=== PATIENT | female | born 1980 | race Caucasian/White ===

== ENCOUNTER 2023-02-08 06:02 | Day surgery (SDC) | payer BC, SELFPAY ==
[2023-02-08 06:18] VITALS: BMI 31.7
[2023-02-08 06:30] LABS: Hemoglobin* 14.2 gm/dL (12.0-16.0)
[2023-02-08] MEDS: LACTATED RINGERS 1000 ML 1,000 ML 100 ML IV (06:30)
[2023-02-08 06:36] VITALS: BP 107/71; PULSE 67; RESP 16; TEMP 37.3; O2SAT 98
[2023-02-08 06:49] LABS: HCG Qualitative Serum* Negative (Negative)
--- NOTE | 2023-02-08 07:15 | W.ANESCHARGE ---
Anesthesia Charges Start Date/Time Anesthesia Start Date: 02/08/23 Anesthesia Start Time: 07:21 Stop Date/Time Anesthesia Stop Date: 02/08/23 Anesthesia Stop Time: 08:35
[2023-02-08 08:30] VITALS: BP 114/75; PULSE 79; RESP 16; TEMP 36.5; O2SAT 96
--- NOTE | 2023-02-08 08:35 | W.ANESCHARGE ---
Anesthesia Charges Start Date/Time Anesthesia Start Date: 02/08/23 Anesthesia Start Time: 07:21 Stop Date/Time Anesthesia Stop Date: 02/08/23 Anesthesia Stop Time: 08:35
[2023-02-08 08:45] VITALS: BP 103/58; PULSE 77; RESP 16; O2SAT 99
--- NOTE | 2023-02-08 08:51 | P.PCNOB_ITS ---
Procedure Pre-op/Post-op diagnoses: Pre-Op/Post-Op Diagnoses Operation Date: 02/08/23 07:25 <No data on this case meets the specified criteria> Procedure: Procedures Operation Date: 02/08/23 07:25 Actual Procedure Side Surgeon p Hysteroscopy, Endometrial Ablation Not Applicable Jocelynn Birch MD Anesthesia type: MAC Specimen: none Complications: none Disposition: PACU Narrative: Preoperative diagnosis: Fiordaliza is a 42 yo with abnormal uterine bleeding - bhavya rrhagia. Postoperative diagnosis: Same. Procedure: Hysteroscopy and endometrial ablation. Anesthesia: Mac and paracervical block. Surgeon: Joceylnn Birch MD Assist: None Estimated blood loss: <5 cc UOP: 150 cc Fluid deficit: 180 cc Specimen: None UPT: Negative Endometrial biopsy on 01/09/2023: Late proliferative endometrial, negative for hyperplasia, atypia, or malignancy Findings: On exam under anesthesia: The cervix appear multiparous and vagina appear normal. The uterus was anterior position, approximately 6 week size, mobile and without masses or nodularity palpable. Adnexa were without mass or fullness palpable bilaterally. On hysteroscopy: normal uterine cavity contour with out intrauterine fibroids or polyp noted. Bilateral ostia visualized and symmetrical. No other abnormalities noted. The uterus sounded to 8 cm. Cervical length 4 cm. Cavity length: 4 cm. Procedure: Fiordaliza was taken to the operating room where conscious sedation was found to be adequate. She was placed in a dorsal lithotomy position and an exam under anesthesia was performed with the findings stated above. She was then prepped and draped in a normal sterile manner. An a bivalve is sterile speculum was placed in the vaginal canal. A paracervical block was placed using 1% lidocaine with epi: 5 mL were injected at the 4 and 8 o'clock positions on the cervix. A long tenaculum clamp was placed on the anterior lip of the cervix. The cervix was then dilated to Hegar 6. Uterus sounded to 8 cm. The cervix measured 4 cm. There for the cavity length was 4 cm. The Truclear hysteroscope was advanced into the uterus. A diagnostic hysteroscopy performed with normal saline as the insufflation medium. Findings are stated above. The hysteroscope was removed. The cervix was then dilated to Hegar 8. The Lara device was advanced into the uterus. The cavity check for the first Lara device gave a 005 error message and was replaced with a new Lara device. The second Lara cavity check was completed and the ablation took place over 2 min. Patient received 30 mg of Toradol IV. The Lara was removed, the hysteroscope readvanced to document ablation of the entire cavity. The hysteroscope was then removed. The tenaculum was removed from the anterior lip of the cervix. Tenaculum sites achieved hemostasis with just pressure. Speculum was then also removed. The patient tolerated this procedure well. Sponge, lap and instrument counts were correct x2 at the end of the procedure and the patient was taken to the recovery area in stable condition.
[2023-02-08 09:00] VITALS: BP 104/60; PULSE 74; RESP 16; TEMP 36.7; O2SAT 99
== END 2023-02-08 09:30 | disposition home or self-care (01) ==
PROVIDERS: PCP Physician Assistant; Visit Provider Obstetrics & Gynecology
PROC: 0UF98ZZ Fragmentation in Uterus, Via Natural or Artificial Opening Endoscopic (ICD-10-PCS; CPT 58563; principal; 2023-02-08 07:15)
DX: N92.0 Excessive and frequent menstruation with regular cycle (principal)
CPT/HCPCS: 58563; 00952; 36415; 81025; 84703; 85018; J1100; J1885; J2250; J2405; J2704; J3010; J7120

== ENCOUNTER 2023-12-17 07:57 | Emergency (ER) | payer BC, SELFPAY ==
[2023-12-17 08:00] VITALS: BP 111/75; PULSE 91; RESP 16; TEMP 36.6; O2SAT 96; BMI 32.5
--- NOTE | 2023-12-17 08:14 | CRLHL7_ITS ---
For Patients: As a result of the Century Cures Act, medical imaging exams and procedure reports are released immediately into your electronic medical record. You may view this report before your referring provider. If you have questions, please contact your health care provider. Indication: Left-sided lower abdominal pain, suspected urolithiasis versus diverticulitis Technique: Volumetric multidetector CT images of the abdomen and pelvis were without the administration of intravenous contrast. Comparison: None available. Findings: The lung bases are clear. The liver is normal in attenuation without intrahepatic biliary ductal dilatation. There is dependent globular sludge within the gallbladder. There is no evidence of calcified calculus at this time. There is no significant common biliary ductal dilatation or abrupt cut off. The spleen is normal in attenuation and size. The stomach and duodenum are grossly unremarkable. The pancreas is normal in attenuation without significant atrophy. The adrenal glands are unremarkable. There are parapelvic cystic changes of the kidneys without evidence of hydronephrosis or obstructive uropathy. There is [id number] stool within the distal colon with colonic diverticulosis without evidence of diverticulitis. The appendix is unremarkable. There is no significant mesenteric, retroperitoneal, or pelvic sidewall lymph nodes. The aorta is nonaneurysmal. There is no significant atherosclerotic disease appreciated. There is demonstration of a dominant follicle within the left ovary measuring 3.4 centimeters in greatest dimension. There is no free fluid or free air. There is a moderate fat containing umbilical hernia. The lumbar vertebral body heights are grossly maintained with [id number] multilevel degenerative disc disease. Impression: No evidence of radiopaque calculus or obstructive uropathy. Moderate stool seen throughout the colon with distal colonic diverticulosis without evidence of diverticulitis. Dominant follicle within the left ovary measuring 3.4 centimeters. No acute intra-abdominal abnormality is identified. Please note that all CT scans at this facility use dose modulation, iterative reconstruction, and/or weight-based dosing when appropriate to reduce radiation dose to as low as reasonably achievable. Dictated by Raffi Anderson MD @ 12/17/2023 9:11:30 AM (Electronically Signed)
--- NOTE | 2023-12-17 08:21 | ED.ABDPAIN ---
HPI - Abdominal Pain General Date Seen: 12/17/23 Chief Complaint: Abdominal Pain Stated Complaint: side pain Time Seen by Provider: 12/17/23 08:00 Source: patient and family Mode of arrival: ambulatory Limitations: no limitations History of Present Illness HPI narrative: Patient is a very nice 43-year-old female presents here with her for evaluation of left-sided abdominal pain this started in the early hours last night. She was associated initially with a lot of vomiting, she vomited approximately 10 times, no blood within the vomitus, and then developed the left-sided abdominal pain. Did not radiate from her kidney area was down her lower abdominal region. Maybe a little bit across. She took ibuprofen approximately 1-1/2 hour before being seen here. And this is really help the pain it least that she has not doubled over. Never before had this discomfort, but feels it may be her ovary just from the placement of the pain. She has not had any bowel movements but is having some gas, denies any dysuria frequency rashes or vaginal discharge associated with this. Previous abdominal surgery glue is a history of a D and C hysteroscopy, she carries a diagnosis of endometriosis in her chart, but does not feel that this is accurate has never been told this before appears MD elicited complaint: abdominal pain Pertinent past history: none Onset (ago): hour(s) Pain Consistency: constant and colicky Location: LLQ Severity: severe Quality: cramping, stabbing and sharp Radiation: none Migration to: no migration Exacerbating factors: rest Relieving factors: medication Associated symptoms: nausea and vomiting Treatments prior to arrival: NSAIDs Related Data Date of last menstrual period: 12/04/23 Patient : No Home Medications Medication Instructions Recorded Confirmed Lactobacillus rhamnosus GG 20 1 cap PO DAILY 01/09/23 12/17/23 billion cell capsule loratadine 10 mg tablet (Claritin) 10 mg PO QDAY 01/09/23 12/17/23 multivitamin (Daily Multi-Vitamin 1 tab PO QDAY 01/09/23 12/17/23 tablet) Allergies Allergy/AdvReac Type Severity Reaction Status Date / Time spironolactone Allergy Unknown Unknown Verified 09/07/23 08:21 Review of Systems Status of ROS Reports: 10 or more systems reviewed and unremarkable except as noted in History and below [facility] Medical History Rh negative status during ?O26.899 - Other specified related conditions, unspecified trimester (ICD-10) ?Z67.91 - Unspecified blood type, rh negative (ICD-10) Dyspareunia Migraine with aura ?G43.109 - Migraine with aura, not intractable, without status migrainosus (ICD-10) Menorrhagia ?N92.0 - Excessive and frequent menstruation with regular cycle (ICD-10) Obesity ?E66.9 - Obesity, unspecified (ICD-10) Venous insufficiency ?I87.2 - Venous insufficiency (chronic) (peripheral) (ICD-10) PCOS (polycystic ovarian syndrome) ?E28.2 - Polycystic ovarian syndrome (ICD-10) Rh negative status during ?O26.899 - Other specified related conditions, unspecified trimester (ICD-10) ?Z67.91 - Unspecified blood type, rh negative (ICD-10) Surgical History History of endometrial ablation ?Z98.890 - Other specified postprocedural states (ICD-10) History of vein stripping ?Z98.890 - Other specified postprocedural states (ICD-10) History of D&C (01/09/18) ?Z98.890 - Other specified postprocedural states (ICD-10) History of vaginal delivery Family History Sister Depression Migraine Mother Uterine cancer, Onset Age: 30 Migraine Brother Non-Hodgkin lymphoma Maternal Grandfather Brain tumor Father Alcohol dependence Social History Narrative: Andreafski. . Nonsmoker. Occasional alcohol use. Smoking Status: Former smoker How often do you have a drink containing alcohol: 2-4 times a month AUDIT-C Alcohol total score: 2 Non-prescribed substance use: denies use Exam Narrative: Exam Narrative: On examination in room 3 she is in no apparent distress she is pleasant and alert. She looks fairly comfortable. Her pupils are equal round reactive to light there is no scleral icterus redness or TMs bilaterally are normal her oropharynx is normal her neck is supple full range of motion is elicited, her chest is good air entry bilaterally with no wheezing crackles noted heart sounds normal her abdomen shows some tenderness in left lower quadrant, do not detect a hernia, her bowel sounds are quiet. no peritoneal signs are noted. No CVA tenderness is noted, she lifts her lower extremities normal skin reveals no petechiae rashes Const: Vital Signs, click to edit/add: Vital Signs - 24 hr 12/17/23 08:00 Temperature 98 F Pulse Rate [Pulse Oximeter] 91 Respiratory Rate 16 Blood Pressure [Ri ght Upper Arm] 111/75 Pulse Oximetry 96 Oxygen Delivery Me thod Room Air Documenting provider has reviewed patient's vital signs: yes Course Vital Signs Vital signs: Initial Vital Signs Temperature 98 F 12/17/23 08:00 Temperature Source Temporal Artery Scan 12/17/23 08:00 Pulse Rate 91 12/17/23 08:00 Respiratory Rate 16 12/17/23 08:00 Blood Pressure 111/75 12/17/23 08:00 Blood Pressure Mean 87 12/17/23 08:00 Blood Pressure Position Supine 12/17/23 08:00 Pulse Oximetry 96 12/17/23 08:00 Oxygen Delivery Method Room Air 12/17/23 08:00 Vital Signs Temperature 98 F 12/17/23 08:00 Pulse Rate 91 12/17/23 08:00 Respiratory Rate 16 12/17/23 08:00 Blood Pressure 111/75 12/17/23 08:00 Pulse Oximetry 96 12/17/23 08:00 Oxygen Delivery Method Room Air 12/17/23 08:00 Temperature 98 F 12/17/23 08:00 Pulse Rate 91 12/17/23 08:00 Respiratory Rate 16 12/17/23 08:00 Blood Pressure 111/75 12/17/23 08:00 Pulse Oximetry 96 12/17/23 08:00 Oxygen Delivery Method Room Air 12/17/23 08:00 Medications Administered Medications: Discontinued Medications Generic Name Dose Route Start Last Admin Trade Name Freq PRN Reason Stop Dose Admin Sodium Chloride 1,000 mls @ 1,000 mls/hr 12/17/23 08:15 12/17/23 09:02 0.9 % Sodium Chloride 1000 Ml IV 12/17/23 09:14 Infused .Q1H JG Infusion Ketorolac Tromethamine 30 mg 12/17/23 08:55 12/17/23 09:02 Ketorolac 30 Mg/Ml Inj IVP 12/17/23 08:56 30 mg ONCE ONE Administration Ondansetron HCl 4 mg 12/17/23 08:13 12/17/23 08:30 Ondansetron 2 Mg/Ml Inj IVP 12/17/23 08:14 4 mg ONCE ONE Administration MDM - Abdominal Pain MDM Narrative Medical decision making narrative: During the evaluation of this patient I considered multiple differential diagnosis including life-threatening differentials which are appendicitis, aortic aneurysm, mesenteric ischemia, bowel perforation, ectopic , volvulus and bowel obstruction, other differential diagnosis include but are not limited to inflammatory bowel disease, cholecystitis, pancreatitis, hepatitis, gastritis, GERD, diverticulitis, peptic ulcer disease, pyelonephritis/UTI, renal colic/stone, pelvic inflammatory disease, cervicitis, endometritis, intrauterine , dysfunctional uterine bleeding, ovarian cyst/torsion, spontaneous as well as other etiologies Medical Records Attestation: I reviewed the patient's medical records. Lab Data Attestation: I reviewed the patient's lab results. Labs: Lab Results 12/17/23 12/17/23 Range/Units 08:20 09:00 WBC 10.36 (4.50-11.00) K/uL RBC 4.67 (4.00-5.20) m/uL Hgb 14.7 (12.0-16.0) gm/dL Hct 41.9 (33.0-51.0) % MCV 90 (80-100) fL MCH 32 (26-34) pg MCHC 35 (32-36) gm/dL RDW Coeff of Mikki 11.6 (11.5-15.5) % Plt Count 221 (140-440) K/uL Neut % (Auto) 91.9 H (42.0-72.0) % Lymph % (Auto) 3.5 L (20-44) % Rich % (Auto) 4.3 (0.0-11.0) % Eos % (Auto) 0.1 (0.0-7.0) % Baso % (Auto) 0.0 (0.0-3.0) % Neut # (Auto) 9.50 H (1.7-7.0) K/uL Lymph # (Auto) 0.40 L (0.90-2.90) K/uL Rich # (Auto) 0.40 (0.00-0.90) K/UL Eos # (Auto) 0.01 (0.00-0.50) K/uL Baso # (Auto) 0.00 (0.00-0.30) K/uL Abs Immat Gran (auto) 0.02 (0.00-0.30) K/uL Imm/Tot Granulo (auto) 0.2 % Sodium 137 (135-149) mmol/L Potassium 4.2 (3.6-5.1) mmol/L Chloride 104 (96-114) mmol/L Carbon Dioxide 23 (20-32) mmol/L Anion Gap 10 (7-15) mEq/L BUN 17 (5-24) mg/dL Creatinine 0.8 (0.5-1.5) mg/dL Estimated Creat Clear 94.76 Estimated GFR 94 ml/min Glucose 108 (60-115) mg/dL Lactate 1.6 (0.5-1.9) mmol/L Calcium 8.7 (8.4-10.6) mg/dL Total Bilirubin 0.7 (0.1-1.5) mg/dL Direct Bilirubin 0.1 (0.0-0.5) mg/dL AST 24 (12-35) U/L ALT 21 (4-35) U/L Alkaline Phosphatase 69 (40-150) U/L C-Reactive Protein 2.3 H (0.5-1.0) mg/dL Total Protein 7.6 (6.0-8.3) g/dL Albumin 4.2 (3.3-5.0) g/dL Amylase 70 (18-89) U/L Procalcitonin 0.12 (<0.50) ng/mL Urine Color Dark yellow (Yellow) Urine Appearance Cloudy A (Clear) Urine pH 5.5 (5.0-8.5) Ur Specific [place] 1.025 (1.000-1.030) Urine Protein 1+ A (Negative) Urine Glucose (UA) Negative (Negative) Urine Ketones Trace A (Negative) Urine Blood Negative (Negative) Urine Nitrite Negative (Negative) Urine Bilirubin 1+ A (Negative) Urine Urobilinogen 1.0 (0.2-1.0) Ur Leukocyte Esterase Trace A (Negative) Urine RBC 0-2 (0-2) Urine WBC 0-2 (0-5) Ur Squamous Epith Cells Many A (None-Few) Urine Bacteria Moderate A (None) Urine Mucus Moderate A (None) Imaging Data CT scan - abdomen: Attestation: I have reviewed the pertinent imaging results. My impression: Moderate-sized left-sided ovarian cyst, on CT, says ultrasound review Radiologist's impression: Patient: MAINE ACEVES Facility:?[facility] Patient ID:?[id number] Site Patient ID:?[id number]. Site :?[id number] Study:?CT Abdomen/Pelvis W/O-12/17/2023 8:37:21 AM Ordering Physician:Sunil Sheth Final Report: Indication: Left-sided lower abdominal pain, suspected urolithiasis versus diverticulitis Technique: Volumetric multidetector CT images of the abdomen and pelvis were without the administration of intravenous contrast. Comparison: None available. Findings: The lung bases are clear. The liver is normal in attenuation without intrahepatic biliary ductal dilatation. There is dependent globular sludge within the gallbladder. There is no evidence of calcified calculus at this time. There is no significant common biliary ductal dilatation or abrupt cut off. The spleen is normal in attenuation and size. The stomach and duodenum are grossly unremarkable. The pancreas is normal in attenuation without significant atrophy. The adrenal glands are unremarkable. There are parapelvic cystic changes of the kidneys without evidence of hydronephrosis or obstructive uropathy. There is jykw-pf-jopyhtpm stool within the distal colon with colonic diverticulosis without evidence of diverticulitis. The appendix is unremarkable. There is no significant mesenteric, retroperitoneal, or pelvic sidewall lymph nodes. The aorta is nonaneurysmal. There is no significant atherosclerotic disease appreciated. There is demonstration of a dominant follicle within the left ovary measuring 3.4 centimeters in greatest dimension. There is no free fluid or free air. There is a moderate fat containing umbilical hernia. The lumbar vertebral body heights are grossly maintained with [id number] multilevel degenerative disc disease. Impression: No evidence of radiopaque calculus or obstructive uropathy. Moderate stool seen throughout the colon with distal colonic diverticulosis without evidence of diverticulitis. Dominant follicle within the left ovary measuring 3.4 centimeters. No acute intra-abdominal abnormality is identified. Please note that all CT scans at this facility use dose modulation, iterative reconstruction, and/or weight-based dosing when appropriate to reduce radiation dose to as low as reasonably achievable. Dictated by Raffi Anderson MD @ 12/17/2023 9:11:30 AM (Electronic Signature) Patient: MAINE ACEVES Facility:?[facility] Patient ID:?[id number] Site Patient ID:?[id number]. Site :?[id number] Study:?US Pelvis TRANSVAGINAL-12/17/2023 9:30:21 AM Ordering Physician:?Kasey Sheth Final Report: INDICATION: Left lower quadrant pain, left ovarian cyst on CT. TECHNIQUE: Ultrasound pelvis transvaginal for better assessment or to better visualize the endometrium. Real-time sonographic images with spectral and color Doppler imaging of the ovaries were obtained. COMPARISON: Abdomen and pelvis CT 12/17/2023 FINDINGS: Uterus: 9.4 x 4.9 x 6.0 cm. Subcentimeter nabothian cysts. Endometrium: Transvaginal imaging was performed to better evaluate the endometrium. Endometrial thickness measures 9 mm. No sign of endometrial mass or fluid. Right ovary measures 4.2 x 1.9 x 2.6 cm and left ovary measures 4.9 x 4.2 x 4.5 cm. Hypoechoic avascular lesion within the left ovary measuring 4.1 x 2.6 x 3.8 centimeters. Normal blood flow is demonstrated in both ovaries. Cul-de-sac: No significant free fluid. IMPRESSION: Complex left ovarian lesion measuring 4.1 centimeters. This lesion shows no significant vascularity and suspect this represents a complex hemorrhagic cyst. Recommend follow-up ultrasound in 8 weeks to document resolution. Dictated by Julio Cesar Mcgill MD @ 12/17/2023 10:05:09 AM (Electronic Signature) Discharge Plan Discharge Clinical Impression: Ovarian cyst, Abdominal pain, Constipation Patient Disposition: Home w/ Parent or Adult Condition: Stable Instructions: Ovarian Cyst (ED), Constipation (DC), Abdominal Pain (ED) Additional Instructions: A CT shows a medium size cyst on her left ovary. I think that this combination with possibly the constipation is given your discomfort the remainder CT was normal, when we did the ultrasound there is excellent blood flow on the seems to be more what we call a corpus luteum type cyst. I think I would try some MiraLax here, I can give you some stronger pain medication if needed, but the ibuprofen works very well for this also. I also like the fact that the stronger pain medication IUD narcotics can cause worsening of her constipation. Would suggest follow-up with OBGYN to see about the cyst, I suspect that this is just a normal variant, but just to be safe. Activity Level: Light activity Prescriptions: No Action Lactobacillus rhamnosus GG 20 billion cell capsule 1 cap PO DAILY multivitamin [Daily Multi-Vitamin] Tablet 1 tab PO QDAY loratadine [Claritin] 10 mg tablet 10 mg PO QDAY Follow Up/Referrals: Celi Dickinson PA [Referring] - Stand Alone Forms: [employer] Info Instructions
[2023-12-17 08:24] LABS: Lactate* 1.6 mmol/L (0.5-1.9)
--- OUTSIDE RECORDS SUMMARY | 2023-12-17 08:25 | XMS_ITS | Clinical Summary ---
Author Name Unknown Organization [facility] Address [address] [place] [address] Care Team Providers Care Heel Attacher Name Role Phone Unavailable Primary Care Provider Unavailabl e Source Comments Patient records contain information from all sites at [facility]. For routine questions regarding patient records, call [phone] during business hours, M-F 8:00 AM - 5:00 PM Central Time. Record requests for emergency care only can be directed to [phone] at any time.[facility] Allergies Active Allergy Reactions Criticality Noted Date Comments Spironolactone Other (see comments) 08/02/2010 Medications Medication Sig Dispensed Refills Start Date End Date Status mometasone (ELOCON) 0.1 % cream Apply 1 Application topically 2 (two) times a day. Apply to left breast twice daily starting first day of radiation treatment. Continue for 2 weeks following the completion of radiation treatment. 100 g 0 11/30/2023 Active fluticasone propionate (FLONASE) 50 mcg/actuation nasal spray SPRAY 2 SPRAYS INTO EACH NOSTRIL ONCE A DAY FOR 1 WEEK THEN MAY ADJUST TO 1 TO 2 SPRAYS IN EACH NOSTIL ONCE A DAY 0 11/11/2022 Active Lactobacillus rhamnosus GG (CULTURELLE) 10 billion cell capsule Take 1 capsule by mouth daily. 0 09/12/2017 Active loratadine (CLARITIN) 10 mg tablet Take 10 mg by mouth. 0 01/09/2023 Acti ve medroxyPROGESTERone (Provera) 10 mg tablet Take 1 tablet by mouth daily. 0 09/25/2013 Active metroNIDAZOLE (METROGEL) 0.75 % (37.5mg/5 gram) vaginal gel INSERT 1 APPLICATOR FULL VAGINALLY EVERY DAY FOR 5 DAYS 0 09/07/2023 Active multivitamin tablet Take 1 tablet by mouth daily. 0 06/03/2019 Active tamoxifen (NOLVADEX) 20 mg tablet Take 1 tablet by mouth daily. 0 11/26/2023 Active Active Problems Problem Noted Date Diagnosed Date Malignant Neoplasm Of Breast Lower Outer Quadrant Female Left 10/08/2023 Cancer Staging:Pathologic stage from 10/29/2023:Stage IA(pT1b, pN0(sn), cM0, G1, ER+, AL+, HER2-, Oncotype DX score: 19) - Unsigned Encounters Date Type Department Care Team Description 12/14/2023 9:27 AM [facility] Hospital Encounter Department of Radiation Oncology in [address] [address] Ronny Merritt M.D. 12/13/2023 9:56 AM [facility] Hospital Encounter Department of Radiation Oncology in [address] [address] Ronny Merritt M.D. 12/12/2023 8:28 AM MANAGER CARE MANAGEMENT - 12/12/2023 9:25 AM [facility] Hospital Encounter Department of Radiation Oncology in [address] [address] Ronny Merritt M.D. Retterath, Chelsey A, R.N. Malignant Neoplasm Of Breast Lower Outer Quadrant Female Left (HCC) Discharge Disposition: Home or Self Care 12/12/2023 7:59 AM MANAGER CARE MANAGEMENT - 12/12/2023 8:27 AM [facility] Hospital Encounter Department of Radiation Oncology in [address] [address] Ronny Merritt M.D. Malignant Neoplasm Of Breast Lower Outer Quadrant Female Left (HCC) 12/12/2023 7:59 AM [facility] Hospital Encounter Department of Radiation Oncology in [address] [address] Ronny Merritt M.D. 12/11/2023 9:24 AM [facility] Hospital Encounter Department of Radiation Oncology in [address] [address] Ronny Merritt M.D. 12/10/2023 7:07 AM MANAGER CARE MANAGEMENT Hospital Encounter Department of Radiation Oncology in [address] [address] Ronny Merritt M.D. 11/30/2023 10:00 AM MANAGER CARE MANAGEMENT - 11/30/2023 4:54 PM MANAGER CARE MANAGEMENT Hospital Encounter Department of Radiation Oncology in [address] [address] Ronny Merritt M.D. Malignant Neoplasm Of Breast Lower Outer Quadrant Female Left (HCC) 11/30/2023 8:28 AM MANAGER CARE MANAGEMENT - 11/30/2023 9:59 AM MANAGER CARE MANAGEMENT Hospital Encounter Department of Radiation Oncology in [address] [address] Ronny Merritt M.D. Malignant Neoplasm Of Breast Lower Outer Quadrant Female Left (HCC) (Primary Dx) 11/21/2023 Orders Only Department of Radiation Oncology in [address] [address] Bhumika García APRN, C.N.P., D.N.P. Malignant Neoplasm Of Breast Lower Outer Quadrant Female Left (HCC) (Primary Dx) from Last 3 Months Immunizations Name Administration Dates Next Due Influenza Split 08/12/2012 Tdap 08/12/2012,05/12/2011 Family History Medical History Relation Name Comments Breast cancer Aunt Non-Hodgkin lymphoma Brother Skin cancer Brother Breast cancer Cousin Brain Tumor Maternal Grandfather Uterine cancer Mother Varicose Veins Mother Skin cancer Sister Relation Name Status Comments Aunt Brother Cousin Maternal Grandfather Mother Sister Social History Tobacco Use Types Packs/Day Years Used Date Smoking Tobacco: Former Cigarettes 0.3 2 003 - 2010 Smokeless Tobacco: Never Tobacco Cessation:Counseling Given: Not Answered Alcohol Use Standard Drinks/Week Comments Not Currently 0 (1 standard drink = 0.6 oz pur e alcohol) [facility] Utilities Answer Date Recorded In the past 12 months has [employer], oil, or water company threatened to shut off services in your home? No 11/25/2023 Exercise Vital Sign Answer Date Recorde d On average, how many days pe r week do you engage in moderate to strenuous exercise (like a brisk walk)? 0 days 11/25/2023 On average, how many minutes do you engage in exercise at this level? 0 min 11/25/2023 Hunger Vital Sign Answer Date Recorded Within the past 12 months, y ou worried that your food would run out before you got the money to buy more. Never true 11/25/19 Within the past 12 months, t he food you bought just didn't last and you didn't have money to get more. Never true 11/25/2023 PRAPARE - Transportation Answer Date Re corded In the past 12 months, has l ack of transportation kept you from medical appointments or from getting medications? No 11/12 In the past 12 months, has l ack of transportation kept you from meetings, work, or from getting things needed for daily living? No 11/25/2023 Nutrition Answer Date Recorded Nutrition: EVOO Fat Source Unknown 11/25 On average, how many serving s of fruits and vegetables do you eat per day (serving size is equal to 1 cup or approximately the size of a tennis ball)? 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 I have a [facility] place to live 11/25/2023 Sex and Gender Information Value Date Recorded Sex Assigned at Female 11/25/2023 8:25 PM MANAGER CARE MANAGEMENT Gender Identity Female 11/25/2023 8:25 PM MANAGER CARE MANAGEMENT Sexual Orientation Straight 11/25/2023 8: 25 PM MANAGER CARE MANAGEMENT Last Filed Vital Signs Vital Sign Reading Time Taken Comments Blood Pressure 113/68 11/30/2023 8:52 AM MANAGER CARE MANAGEMENT Pulse 84 11/30/2023 8:52 AM MANAGER CARE MANAGEMENT Temperature 36.7 ??C (98 ??F) 12/12/2023 8:17 AM MANAGER CARE MANAGEMENT Respiratory Rate 16 09/25/2013 5:08 PM MANAGER CARE MANAGEMENT Oxygen Saturation - - Inhaled Oxygen Concentration - - Weight 101 kg (223 lb 5.2 oz) 12/12/2023 8:17 AM MANAGER CARE MANAGEMENT Height 177.5 cm (5' 9.88) 09/25/2013 9:40 AM CS T Body Mass Index - - Plan of Treatment Upcoming Encounters Date Type Department Care Team (Late st Contact Info) Description 12/18/2023 8:30 AM MANAGER CARE MANAGEMENT Appointment Department of Radiation Oncology in [address] [address] Ronny Merritt M.D. [address] [place] [phone] 12/19/2023 8:30 AM MANAGER CARE MANAGEMENT Appointment Department of Radiation Oncology in [address] [address] Ronny Merritt M.D. [address] [place] [phone] 12/19/2023 9:00 AM MANAGER CARE MANAGEMENT Appointment Department of Radiation Oncology in [address] [address] Ronny Merritt M.D. [address] [place] [phone] 12/20/2023 8:30 AM MANAGER CARE MANAGEMENT Appointment Department of Radiation Oncology in [address] [address] Ronny Merritt M.D. [address] [place] [phone] 12/21/2023 8:30 AM MANAGER CARE MANAGEMENT Appointment Department of Radiation Oncology in [address] [address] Ronny Merritt M.D. [address] [place] [phone] 12/24/2023 9:45 AM MANAGER CARE MANAGEMENT Appointment Department of Radiation Oncology in [address] [address] Ronny Merritt M.D. [address] [place] [phone] 12/25/2023 9:45 AM MANAGER CARE MANAGEMENT Appointment Department of Radiation Oncology in [address] [address] Ronny Merritt M.D. [address] [place] [phone] 12/26/2023 9:45 AM MANAGER CARE MANAGEMENT Appointment Department of Radiation Oncology in [address] [address] Ronny Merritt M.D. [address] [place] [phone] 12/26/2023 10:00 AM MANAGER CARE MANAGEMENT Appointment Department of Radiation Oncology in [address] [address] Ronny Merritt M.D. [address] [place] [phone] 12/27/2023 9:45 AM MANAGER CARE MANAGEMENT Appointment Department of Radiation Oncology in [address] [address] Ronny Merritt M.D. [address] [place] [phone] 12/28/2023 9:45 AM MANAGER CARE MANAGEMENT Appointment Department of Radiation Oncology in [address] [address] Ronny Merritt M.D. [address] [place] [phone] 12/31/2023 8:30 AM MANAGER CARE MANAGEMENT Appointment Department of Radiation Oncology in [place], [place] [address] [place] [phone] Ronny Merritt M.D. [address] [place] [phone] 01/01/2024 8:30 AM MANAGER CARE MANAGEMENT Appointment Department of Radiation Oncology in [place], [place] [address] [place] [phone] Ronny Merritt M.D. [address] [place] [phone] 01/02/2024 8:30 AM MANAGER CARE MANAGEMENT Appointment Department of Radiation Oncology in [address] [address] Ronny Merritt M.D. [address] [place] [phone] 01/02/2024 8:45 AM MANAGER CARE MANAGEMENT Appointment Department of Radiation Oncology in [address] [address] Ronny Merritt M.D. [address] [place] [phone] 01/03/2024 8:30 AM MANAGER CARE MANAGEMENT Appointment Department of Radiation Oncology in [address] [address] Ronny Merritt M.D. [address] [place] [phone] 01/04/2024 7:30 AM MANAGER CARE MANAGEMENT Appointment Department of Radiation Oncology in [address] [address] Ronny Merritt M.D. [address] [place] [address] Health Maintenance Due Date Last Done Comments HIV Screening 1980 Hepatitis B Vaccines (1 of 3 - 3-dose series) 1980 Hepatitis C Screening 1980 Pneumococcal vaccine (0-64 years) (1 of 2 - PCV) 1986 Zoster Vaccines (1 of 2) 1999 Cervical Cancer Screening 08/12/20152011 (Performed elsewhere) COVID-19 Vaccine (3 - Pfizer risk series) 05/03/2021 04/05/2021, 03/03/2021 Influenza Vaccine (#1) 2023 , 08/21/2022, 08/21/2022, Additional history exists Depression Screening (Annual PHQ-2) 11/12/2023 Mammogram 10/29/2024 10/29/2023, 10/12, 10/02/2023, Additional history exists Lipid (Cholesterol) Screening 09/14/2028 09/14/2023, 09/13/2021, 09/07/2020 DTaP,Tdap,and Td Vaccines (5 - Td or Tdap) 11/28/2028 11/28/2018, 03/04/2015, 08/12/2012, Additional history exists HPV Vaccines Aged Out No longer eligi ble based on patient's age to complete this topic Procedures Procedure Name Priority Date/Time Associated Diagnosis Comments ARIA DAILY TREATMENT INFORMATION Routine 12/14/2023 9:55 AM MANAGER CARE MANAGEMENT ARIA DAILY TREATMENT INFORMATION Routine 12/13/2023 10:28 AM MANAGER CARE MANAGEMENT ARIA DAILY TREATMENT INFORMATION Routine 12/12/2023 8:12 AM MANAGER CARE MANAGEMENT ARIA DAILY TREATMENT INFORMATION Routine 12/11/2023 9:49 AM MANAGER CARE MANAGEMENT ARIA DAILY TREATMENT INFORMATION Routine 12/10/2023 7:34 AM MANAGER CARE MANAGEMENT [facility] COURSE COMPLETE TREATMENT INFORMATION Routine 12/06/2023 8:12 AM MANAGER CARE MANAGEMENT INITIAL RAD ONC TREATMENT PLANNING CT SIMULATION Routine 11/30/2023 10:00 AM MANAGER CARE MANAGEMENT Malignant Neoplasm Of Breast Lower Outer Quadrant Female Left (HCC) OUTSIDE MG MAMMOGRAM Routine 10/29/2023 12:10 PM MANAGER CARE MANAGEMENT OUTSIDE US BREAST Routine 10/29/2023 11: 40 AM MANAGER CARE MANAGEMENT OUTSIDE MG MAMMOGRAM Routine 10/29/2023 8:20 AM MANAGER CARE MANAGEMENT OUTSIDE MG MAMMOGRAM Routine 10/02/2023 2:55 PM MANAGER CARE MANAGEMENT OUTSIDE US BREAST Routine 10/02/2023 12: 00 AM MANAGER CARE MANAGEMENT OUTSIDE MG MAMMOGRAM Routine 09/25/2023 3:00 PM MANAGER CARE MANAGEMENT OUTSIDE US BREAST Routine 09/25/2023 12: 00 AM MANAGER CARE MANAGEMENT OUTSIDE MG MAMMOGRAM Routine 09/18/2023 1:55 PM MANAGER CARE MANAGEMENT from Last 3 Months Results * Aria Daily Treatment Information (12/14/2023 9:55 AM MANAGER CARE MANAGEMENT) Only the most recent of5 resultswithin the time period is included. Course ID [id number] [facility] Course Start Date 4 08:17 MANAGER CARE MANAGEMENT [facility] First Treatment Date 4 07:32 MANAGER CARE MANAGEMENT [facility] Last Treatment Date 4 09:55 MANAGER CARE MANAGEMENT [facility] Treatment Elapsed Days 4 [facility] Reference Point [id number] FRY ARIA Dosage Given to Date cGy 1335 [facility] Session Dosage Given 267 [facility] Plan ID [id number] [facility] Fractions Treated to Date 5 FRY ARIA Planned [facility] D[facility] Per Fraction 267 [facility] Prescription Dose in cGy 4005 [facility] Plan Primary Reference Point [id number] [facility] 12/14/2023 9:55 AM MANAGER CARE MANAGEMENT Provider Not In System RADIATION ONCOLOG Y ORDERABLES FRY ARIA na * Aria Course Complete Treatment Information (12/06/2023 8:12 AM MANAGER CARE MANAGEMENT) Course ID [id number] FRY ARIA Course Start Date 12/05/2023 08:50 MANAGER CARE MANAGEMENT FRY ARIA Course End Date 12/06/2023 08:11 MANAGER CARE MANAGEMENT FRY ARIA Reference Point [id number] FRY ARIA Dosage Given to Date cGy 0 FRY ARIA Plan ID [id number] FRY ARIA Fractions Treated to Date 0 FRY ARIA Planned Total Fractions 4 FRY ARIA Prescribed Dose Per Fraction 250 FRY ARIA Prescription Dose in cGy 1000 FRY ARIA Plan Primary Reference Point [id number] FRY ARIA Plan ID [id number] FRY ARIA Fractions Treated to Date 0 FRY ARIA Planned Total Fractions 15 FRY ARIA Prescribed Dose Per Fraction 267 FRY ARIA Prescription Dose in cGy 4005 FRY ARIA Plan Primary Reference Point [id number] FRY ARIA Plan ID [id number] FRY ARIA Fractions Treated to Date 0 FRY ARIA Planned Total Fractions 15 FRY ARIA Prescribed Dose Per Fraction 267 FRY ARIA Prescription Dose in cGy 4005 FRY ARIA Plan Primary Reference Point [id number] FRY ARIA Plan ID [id number] FRY ARIA Fractions Treated to Date 0 FRY ARIA Planned Total Fractions 15 FRY ARIA Prescribed Dose Per Fraction 267 FRY ARIA Prescription Dose in cGy 4005 FRY ARIA Plan Primary Reference Point [id number] FRY ARIA Plan ID [id number] FRY ARIA Fractions Treated to Date 0 FRY ARIA Planned Total Fractions 15 FRY ARIA Prescribed Dose Per Fraction 267 FRY ARIA Prescription Dose in cGy 4005 FRY ARIA Plan Primary Reference Point [id number] FRY ARIA Plan ID [id number] FRY ARIA Fractions Treated to Date 0 FRY ARIA Planned Total Fractions 15 FRY ARIA Prescribed Dose Per Fraction 267 FRY ARIA Prescription Dose in cGy 4005 FRY ARIA Plan Primary Reference Point [id number] FRY ARIA 12/06/2023 8:12 AM MANAGER CARE MANAGEMENT Provider Not In System RADIATION ONCOLOG Y ORDERABLES LISANDRA zhao * Initial Rad Onc Treatment Planning CT Simulation (11/30/2023 10:00 AM MANAGER CARE MANAGEMENT) Narrative LISANDRA LAWRENCE - 11/30/2023 10:00 AM MANAGER CARE MANAGEMENT Jo Ann Biggs R, RTT ? 11/30/2023 10:47 AM Initial Rad Onc Treatment Planning CT Simulation Performed by: Ronny Merritt M.D. Authorized by: Ronny Merritt M.D. ?? Ronny Merritt M.D. RADIATION ONCOLOGY ORDERABLES Performing Organization Address [facility] Phone Number LISANDRA zhao * XR BREAST SPECIMEN LEFT-Outside Mammogram (10/29/2023 12:10 PM MANAGER CARE MANAGEMENT) Only the most recent of5 resultswithin the time period is included. Narrative [facility] - 11/19/2023 1:14 PM MANAGER CARE MANAGEMENT This order has been created and auto-finalized to support the import of outside images. If available, original interpretation can be found on the Media Tab in Chart Review, in Document Viewer, or as an image in QREADS. If a re-interpretation or overread is required please follow defined workflow. ?? Provider Not In System IMG BI PROCEDURES Performing Organization Address [facility] de Phone Number II NA * US BREAST MAGNETIC SEED LOCALIZATION LEFT-Outside US Breast (10/29/2023 11:40 AM MANAGER CARE MANAGEMENT) Only the most recent of3 resultswithin the time period is included. Narrative [facility] - 11/19/2023 1:14 PM MANAGER CARE MANAGEMENT This order has been created and auto-finalized to support the import of outside images. If available, original interpretation can be found on the Media Tab in Chart Review, in Document Viewer, or as an image in QREADS. If a re-interpretation or overread is required please follow defined workflow. ?? Provider Not In System IMG BI PROCEDURES Performing Organization Address [facility] de Phone Number [facility] NA from Last 3 Months
--- OUTSIDE RECORDS SUMMARY | 2023-12-17 08:25 | XMS_ITS | Encounter Summary ---
Author Name Unknown Organization [facility] Address [address] [place] [address] Care Team Providers Care Roofing Plant Supervisor Name Role Phone Unavailable Primary Care Provider Unavailabl e Reason for Visit * Radiation Therapy (Routine) - Authorized Specialty Diagnoses / Procedures Referred By Contac t Referred To Contact Diagnoses Malignant Neoplasm Of Breast Lower Outer Quadrant Female Left (HCC) Procedures Prior Auth Rad Tx FL RADTN TX DEL >=1 MEV COMPLEX 3D Ronny Merritt M.D. [address] [place] [phone] [facility] Referral ID Status Reason Start Date Expiration Date V isits Requested Visits Authorized [id number] Authorized 12/10/2023 11/20/2024 19 19 Encounter Details Date Type Department Care Team (Late st Contact Info) Description 12/13/2023 9:56 AM [facility] Hospital Encounter Department of Radiation Oncology in [place], [place] [address] [place] [address] Ronny Merritt M.D. [address] [place] [phone] Social History Tobacco Use Types Packs/Day Years Used Date Smoking Tobacco: Former Cigarettes 0.3 2 003 - 2010 Smokeless Tobacco: Never Alcohol Use Standard Drinks/Week Comments Not Currently 0 (1 standard drink = 0.6 oz pur e alcohol) [facility] Utilities Answer Date Recorded In the past 12 months has e electric, gas, oil, or water company threatened to shut [...] your living situation today? I have a [facility] place to live 11/25/2023 Sex and Gender Information Value Date Recorded Sex Assigned at Female 11/25/2023 8:25 PM PROPERTY PRESERVATION SPECIALIST Gender Identity Female 11/25/2023 8:25 PM PROPERTY PRESERVATION SPECIALIST Sexual Orientation Straight 11/25/2023 8: 25 PM PROPERTY PRESERVATION SPECIALIST documented as of this encounter Plan of Treatment Upcoming Encounters Date Type Department Care Team (Late st Contact Info) Description 12/18/2023 8:30 AM PROPERTY PRESERVATION SPECIALIST Appointment Department of Radiation Oncology in [place], [place] [address] [place] [address] Ronny Merritt M.D. [address] [place] [address] 12/19/2023 8:30 AM PROPERTY PRESERVATION SPECIALIST Appointment Department of Radiation Oncology in [address] [address] Ronny Merritt M.D. [address] [place] [phone] 12/19/2023 9:00 AM PROPERTY PRESERVATION SPECIALIST Appointment Department of Radiation Oncology in [address] [address] Ronny Merritt M.D. [address] [place] [phone] 12/20/2023 8:30 AM PROPERTY PRESERVATION SPECIALIST Appointment Department of Radiation Oncology in [address] [address] Ronny Merritt M.D. [address] [place] [phone] 12/21/2023 8:30 AM PROPERTY PRESERVATION SPECIALIST Appointment Department of Radiation Oncology in [address] [address] Ronny Merritt M.D. [address] [place] [phone] 12/24/2023 9:45 AM PROPERTY PRESERVATION SPECIALIST Appointment Department of Radiation Oncology in [address] [address] Ronny Merritt M.D. [address] [place] [phone] 12/25/2023 9:45 AM PROPERTY PRESERVATION SPECIALIST Appointment Department of Radiation Oncology in [address] [address] Ronny Merritt M.D. [address] [place] [phone] 12/26/2023 9:45 AM PROPERTY PRESERVATION SPECIALIST Appointment Department of Radiation Oncology in [address] [address] Ronny Merritt M.D. [address] [place] [phone] 12/26/2023 10:00 AM PROPERTY PRESERVATION SPECIALIST Appointment Department of Radiation Oncology in [address] [address] Ronny Merritt M.D. [address] [place] [phone] 12/27/2023 9:45 AM PROPERTY PRESERVATION SPECIALIST Appointment Department of Radiation Oncology in [address] [address] Ronny Merritt M.D. [address] [place] [phone] 12/28/2023 9:45 AM PROPERTY PRESERVATION SPECIALIST Appointment Department of Radiation Oncology in [address] [address] Ronny Merritt M.D. [address] [place] [phone] 12/31/2023 8:30 AM PROPERTY PRESERVATION SPECIALIST Appointment Department of Radiation Oncology in [address] [address] Ronny Merritt M.D. [address] [place] [phone] 01/01/2024 8:30 AM PROPERTY PRESERVATION SPECIALIST Appointment Department of Radiation Oncology in [address] [address] Ronny Merritt M.D. [address] [place] [phone] 01/02/2024 8:30 AM PROPERTY PRESERVATION SPECIALIST Appointment Department of Radiation Oncology in [place], [place] [address] [place] [address] Ronny Merritt M.D. [address] [place] [phone] 01/02/2024 8:45 AM PROPERTY PRESERVATION SPECIALIST Appointment Department of Radiation Oncology in [place], [place] [address] [place] [phone] Ronny Merritt M.D. [address] [place] [phone] 01/03/2024 8:30 AM PROPERTY PRESERVATION SPECIALIST Appointment Department of Radiation Oncology in [place], [place] [address] [place] [address] Ronny Merritt M.D. [address] [place] [phone] 01/04/2024 7:30 AM PROPERTY PRESERVATION SPECIALIST Appointment Department of Radiation Oncology in [address] [address] Ronny Merritt M.D. [address] [place] [phone] documented as of this encounter Visit Diagnoses Not on filedocumented in this encounter
--- OUTSIDE RECORDS SUMMARY | 2023-12-17 08:25 | XMS_ITS ---
Author Name Unknown Organization [facility] Address [address] [place] [address] Care Team Providers Care Manager Warehouse Name Role Phone Unavailable Unavailable Unavailable Surgery Details Not on file Complications Check Surgery Details section. Procedure Estimated Blood Loss Check Surgery Details section. Procedure Findings Check Surgery Details section. Procedure Specimens Taken Check Surgery Details section.
--- OUTSIDE RECORDS SUMMARY | 2023-12-17 08:25 | XMS_ITS | Encounter Summary ---
Author Name Unknown Organization [facility] Address [address] [place] [address] Care Team Providers Care Protohistorian Name Role Phone Unavailable Primary Care Provider Unavailabl e Reason for Visit * Radiation Therapy (Routine) - Authorized Specialty Diagnoses / Procedures Referred By Contac t Referred To Contact Diagnoses Malignant Neoplasm Of Breast Lower Outer Quadrant Female Left (HCC) Procedures Prior Auth Rad Tx MA RADTN TX DEL >=1 MEV COMPLEX 3D Ronny Merritt M.D. [address] [place] [phone] [facility] Referral ID Status Reason Start Date Expiration Date V isits Requested Visits Authorized [id number] Authorized 12/10/2023 11/20/2024 19 19 Encounter Details Date Type Department Care Team (Late st Contact Info) Description 12/14/2023 9:27 AM [facility] Hospital Encounter Department of Radiation Oncology in [place], [place] [address] [place] [address] Ronny Merritt M.D. [address] [place] [phone] Social History Tobacco Use Types Packs/Day Years Used Date Smoking Tobacco: Former Cigarettes 0.3 2 003 - 2010 Smokeless Tobacco: Never Alcohol Use Standard Drinks/Week Comments Not Currently 0 (1 standard drink = 0.6 oz pur e alcohol) [facility] Utilities Answer Date Recorded In the [...] your living situation today? I have a [facility] place to live 11/25/2023 Sex and Gender Information Value Date Recorded Sex Assigned at Female 11/25/2023 8:25 PM PHP MYS[employer] WEB DEVELOPER Gender Identity Female 11/25/2023 8:25 PM PHP MYSQL WEB DEVELOPER Sexual Orientation Straight 11/25/2023 8: 25 PM PHP MYSQL WEB DEVELOPER documented as of this encounter Plan of Treatment Upcoming Encounters Date Type Department Care Team (Late st Contact Info) Description 12/18/2023 8:30 AM PHP MYSQL WEB DEVELOPER Appointment Department of Radiation Oncology in [place], [place] [address] [place] [address] Ronny Merritt M.D. [address] [place] [address] 12/19/2023 8:30 AM PHP MYSQL WEB DEVELOPER Appointment Department of Radiation Oncology in [address] [address] Ronny Merritt M.D. [address] [place] [phone] 12/19/2023 9:00 AM PHP MYSQL WEB DEVELOPER Appointment Department of Radiation Oncology in [address] [address] Ronny Merritt M.D. [address] [place] [phone] 12/20/2023 8:30 AM PHP MYSQL WEB DEVELOPER Appointment Department of Radiation Oncology in [address] [address] Ronny Merritt M.D. [address] [place] [phone] 12/21/2023 8:30 AM PHP MYSQL WEB DEVELOPER Appointment Department of Radiation Oncology in [address] [address] Ronny Merritt M.D. [address] [place] [phone] 12/24/2023 9:45 AM PHP MYSQL WEB DEVELOPER Appointment Department of Radiation Oncology in [address] [address] Ronny Merritt M.D. [address] [place] [phone] 12/25/2023 9:45 AM PHP MYSQL WEB DEVELOPER Appointment Department of Radiation Oncology in [address] [address] Ronny Merritt M.D. [address] [place] [phone] 12/26/2023 9:45 AM PHP MYSQL WEB DEVELOPER Appointment Department of Radiation Oncology in [address] [address] Ronny Merritt M.D. [address] [place] [phone] 12/26/2023 10:00 AM PHP MYSQL WEB DEVELOPER Appointment Department of Radiation Oncology in [address] [address] Rnony Merritt M.D. [address] [place] [phone] 12/27/2023 9:45 AM PHP MYSQL WEB DEVELOPER Appointment Department of Radiation Oncology in [address] [address] Ronny Merritt M.D. [address] [place] [phone] 12/28/2023 9:45 AM PHP MYSQL WEB DEVELOPER Appointment Department of Radiation Oncology in [address] [address] Ronny Merritt M.D. [address] [place] [phone] 12/31/2023 8:30 AM PHP MYSQL WEB DEVELOPER Appointment Department of Radiation Oncology in [address] [address] Ronny Merritt M.D. [address] [place] [phone] 01/01/2024 8:30 AM PHP MYSQL WEB DEVELOPER Appointment Department of Radiation Oncology in [address] [address] Ronny Merritt M.D. [address] [place] [phone] 01/02/2024 8:30 AM PHP MYSQL WEB DEVELOPER Appointment Department of Radiation Oncology in [place], [place] [address] [place] [address] Ronny Merritt M.D. [address] [place] [phone] 01/02/2024 8:45 AM PHP MYSQL WEB DEVELOPER Appointment Department of Radiation Oncology in [place], [place] [address] [place] [phone] Ronny Merritt M.D. [address] [place] [phone] 01/03/2024 8:30 AM PHP MYSQL WEB DEVELOPER Appointment Department of Radiation Oncology in [place], [place] [address] [place] [address] Ronny Merritt M.D. [address] [place] [phone] 01/04/2024 7:30 AM PHP MYSQL WEB DEVELOPER Appointment Department of Radiation Oncology in [address] [address] Ronny Merritt M.D. [address] [place] [phone] documented as of this encounter Visit Diagnoses Not on filedocumented in this encounter
--- OUTSIDE RECORDS SUMMARY | 2023-12-17 08:25 | XMS_ITS | Referral Summary ---
Author Name Unknown Organization [facility] Address [address] [place] [address] Care Team Providers Care Log Snaker Name Role Phone Unavailable Primary Care Provider Unavailabl e Source Comments Patient records contain information from all sites at [facility]. For routine questions regarding patient records, call [phone] during business hours, M-F 8:00 AM - 5:00 PM Central Time. Record requests for emergency care only can be directed to [phone] at any time.[facility] Encounters Date Type Department Care Team Description 12/14/2023 9:27 AM [facility] Hospital Encounter Department of Radiation Oncology in [address] [address] Ronny Merritt M.D. 12/13/2023 9:56 AM INSPECTOR BALANCE WHEEL MOTION Hospital Encounter Department of Radiation Oncology in [address] [address] Ronny Merritt M.D. 12/12/2023 8:28 AM INSPECTOR [employer]ANCE WHEEL MOTION - 12/12/2023 9:25 AM INSPECTOR [employer] WHE[employer] Hospital Encounter Department of Radiation Oncology in [address] [address] Ronny Merritt M.D. Retterath, Chelsey A, R.N. Malignant Neoplasm Of Breast Lower Outer Quadrant Female Left (HCC) Discharge Disposition: Home or Self Care 12/12/2023 7:59 AM INSPECTOR [employer] WHEEL [employer]ION - 12/12/2023 8:27 AM INSPECTOR [employer] WHE[employer] Hospital Encounter Department of Radiation Oncology in [address] [phone] Ronny Merritt M.D. Malignant Neoplasm Of Breast Lower Outer Quadrant Female Left (HCC) 12/12/2023 7:59 AM INSPECT[employer] WHE[employer] Hospital Encounter Department of Radiation Oncology in [address] [address] Ronny Merritt M.D. 12/11/2023 9:24 AM INS[employer] Hospital Encounter Department of Radiation Oncology in [address] [address] Ronny Merritt M.D. 12/10/2023 7:07 AM INSPECTOR BALANCE WHE[employer]ION Hospital Encounter Department of Radiation Oncology in [address] [address] Ronny Merritt M.D. 11/30/2023 10:00 AM INS[employer]ION - 11/30/2023 4:54 PM INSPECTOR [employer] WHE[employer] Hospital Encounter Department of Radiation Oncology in [address] [address] Ronny Merritt M.D. Malignant Neoplasm Of Breast Lower Outer Quadrant Female Left (HCC) 11/30/2023 8:28 AM INSPECTOR [employer] WHE[employer]ION - 11/30/2023 9:59 AM INSPECTOR [employer]ANCE WHEEL [employer] Hospital Encounter Department of Radiation Oncology in [address] [address] Ronny Merritt M.D. Malignant Neoplasm Of Breast Lower Outer Quadrant Female Left (HCC) (Primary Dx) 11/21/2023 Orders Only Department of Radiation Oncology in [address] [address] Bhumika García APRN, C.N.P., D.N.P. Malignant Neoplasm Of Breast Lower Outer Quadrant Female Left (HCC) (Primary Dx) from Last 3 Months Allergies Active Allergy Reactions Criticality Noted Date [...] from 10/29/2023:Stage IA(pT1b, pN0(sn), cM0, G1, ER+, [place]+, HER2-, Oncotype DX score: 19) - Unsigned Immunizations Name Administration Dates Next Due Influenza Split 08/12/2012 Tdap 08/12/2012,05/12/2011 Social History Tobacco Use Types Packs/Day Years Used Date Smoking Tobacco: Former Cigarettes 0.3 2 003 - 2010 Smokeless Tobacco: Never Tobacco Cessation:Counseling Given: Not Answered Alcohol Use Standard Drinks/Week Comments Not Currently 0 (1 standard drink = 0.6 oz pur e alcohol) [facility] Utilities Answer Date Recorded In the past 12 months has e [employer], gas, oil, or water [place] threatened to shut off services in your [...] Date Recorded Employment status Working with temporary [employer] 11/25/2023 Housing Stability Answer Date Recorded What is your living situation today? I have a [facility] place to live 11/25/2023 Sex and Gender Information Value Date Recorded Sex Assigned at Female 11/25/2023 8:25 PM INSPECTOR [employer] Gender Identity Female 11/25/2023 8:25 PM INSPECTOR [employer]ION Sexual Orientation Straight 11/25/2023 8: 25 PM INSPECTOR [employer] WHEEL [employer]ION Last Filed Vital Signs Vital Sign Reading Time Taken Comments Blood Pressure 113/68 11/30/2023 8:52 AM INSPECTOR [employer]ION Pulse 84 11/30/2023 8:52 AM INSPECTOR [employer] WHE[employer]ION Temperature 36.7 ??C (98 ??F) 12/12/2023 8:17 AM INSPECTOR [employer] WHE[employer]ION Respiratory Rate 16 09/25/2013 5:08 PM INSPECTOR [employer] WHE[employer]ION Oxygen Saturation - - Inhaled Oxygen Concentration - - Weight 101 kg (223 lb 5.2 oz) 12/12/2023 8:17 AM INSPECTOR [employer] WHE[employer]ION Height 177.5 cm (5' 9.88) 09/25/2013 9:40 AM CS T Body Mass Index - - Plan of Treatment Upcoming Encounters Date Type Department Care Team (Late st Contact Info) Description 12/18/2023 8:30 AM INSPECT[employer] Appointment Department of Radiation Oncology in [address] [address] Ronny Merritt M.D. [address] [place] [phone] 12/19/2023 8:30 AM INS[employer] Appointment Department of Radiation Oncology in [address] [address] Ronny Merritt M.D. [address] [place] [phone] 12/19/2023 9:00 AM INSPECT[employer] WHE[employer] MOTION Appointment Department of Radiation Oncology in [address] [address] Ronny Merritt M.D. [address] [place] [phone] 12/20/2023 8:30 AM INSPECTOR [employer]ION Appointment Department of Radiation Oncology in [address] [address] Ronny Merritt M.D. [address] [place] [phone] 12/21/2023 8:30 AM INSPECT[employer]ION Appointment Department of Radiation Oncology in [address] [address] Ronny Merritt M.D. [address] [place] [phone] 12/24/2023 9:45 AM INSPECTOR [employer]ION Appointment Department of Radiation Oncology in [address] [address] Ronny Merritt M.D. [address] [place] [phone] 12/25/2023 9:45 AM INSPECTOR [employer] WHE[employer] MOTION Appointment Department of Radiation Oncology in [address] [address] Ronny Merritt M.D. [address] [place] [phone] 12/26/2023 9:45 AM INSPECTOR [employer] WHE[employer]ION Appointment Department of Radiation Oncology in [address] [address] Ronny Merritt M.D. [address] [place] [phone] 12/26/2023 10:00 AM INSPECTOR [employer] WHE[employer]ION Appointment Department of Radiation Oncology in [address] [address] Ronny Merritt M.D. [address] [place] [phone] 12/27/2023 9:45 AM INSPECTOR [employer] WHE[employer] MOTION Appointment Department of Radiation Oncology in [address] [address] Ronny Merritt M.D. [address] [place] [phone] 12/28/2023 9:45 AM INSPECTOR [employer] WHE[employer]ION Appointment Department of Radiation Oncology in [address] [address] Ronny Merritt M.D. [address] [place] [phone] 12/31/2023 8:30 AM INSPECTOR [employer] Appointment Department of Radiation Oncology in [address] [address] Ronny Merritt M.D. [address] [place] [phone] 01/01/2024 8:30 AM INSPECTOR [employer] WHE[employer] Appointment Department of Radiation Oncology in [address] [address] Ronny Merritt M.D. [address] [place] [phone] 01/02/2024 8:30 AM INSPECTOR [employer] Appointment Department of Radiation Oncology in [address] [address] Ronny Merritt M.D. [address] [place] [phone] 01/02/2024 8:45 AM INSPECTOR [employer] Appointment Department of Radiation Oncology in [address] [address] Ronny Merritt M.D. [address] [place] [phone] 01/03/2024 8:30 AM INSPECT[employer] Appointment Department of Radiation Oncology in [address] [address] Ronny Merritt M.D. [address] [place] [phone] 01/04/2024 7:30 AM INSPECTOR [employer]ION Appointment Department of Radiation Oncology in [address] [address] Ronny Merritt M.D. [address] [place] [phone] Procedures Procedure Name Priority Date/Time Associated Diagnosis Comments ARIA DAILY TREATMENT INFORMATION Routine 12/14/2023 9:55 AM INSPECTOR [employer] ARIA DAILY TREATMENT INFORMATION Routine 12/13/2023 10:28 AM INSPECTOR [employer] ARIA DAILY TREATMENT INFORMATION Routine 12/12/2023 8:12 AM INSPECTOR [employer] ARIA DAILY TREATMENT INFORMATION Routine 12/11/2023 9:49 AM INSPECTOR [employer]ION ARIA DAILY TREATMENT INFORMATION Routine 12/10/2023 7:34 AM INSPECTOR [employer] WHE[employer]ION [facility] INFORMATION Routine 12/06/2023 8:12 AM INSPECTOR [employer] WHE[employer]ION INITIAL RAD ONC TREATMENT PLANNING CT SIMULATION Routine 11/30/2023 10:00 AM INSPECTOR [employer]ION Malignant Neoplasm Of Breast Lower Outer Quadrant Female Left (HCC) OUTSIDE MG MAMMOGRAM Routine 10/29/2023 12:10 PM INSPECTOR [employer]ION OUTSIDE US BREAST Routine 10/29/2023 11: 40 AM INSPECTOR [employer]ION OUTSIDE MG MAMMOGRAM Routine 10/29/2023 8:20 AM INSPECTOR [employer]ION OUTSIDE MG MAMMOGRAM Routine 10/02/2023 2:55 PM INSPECTOR [employer] OUTSIDE US BREAST Routine 10/02/2023 12: 00 AM INSPECTOR [employer]ION OUTSIDE MG MAMMOGRAM Routine 09/25/2023 3:00 PM INSPECTOR [employer] WHE[employer]ION OUTSIDE US BREAST Routine 09/25/2023 12: 00 AM INSPECTOR [employer]ION OUTSIDE MG MAMMOGRAM Routine 09/18/2023 1:55 PM INSPECTOR [employer] WHEEL [employer]ION from Last 3 Months Results * Aria Daily Treatment Information (12/14/2023 9:55 AM INSPECTOR BALANCE WHEEL MOTION) Only the most recent of5 resultswithin the time period is included. Course ID [id number] [facility] Course Start Date 08:17 INSPECTOR BALANCE WHEEL MOTION FRY ARIA First Treatment Date 4 07:32 INSPECTOR BAL[employer] WHEEL [employer]ION FRY ARIA Last Treatment Date 4 09:55 INSPECTOR BALANCE WHEEL MOTION FRY ARIA Treatment Elapsed Days 4 FRY ARIA Reference Point [id number] FRY ARIA Dosage Given to Date cGy 1335 FRY ARIA Session Dosage Given 267 FRY ARIA Plan ID [id number] FRY ARIA Fractions Treated to Date 5 FRY ARIA Planned Total Fractions 15 FRY ARIA Prescribed Dose Per Fraction 267 FRY ARIA Prescription Dose in cGy 4005 FRY ARIA Plan Primary Reference Point [id number] FRY ARIA 12/14/2023 9:55 AM INSPECTOR [employer] Provider Not In System RADIATION ONCOLOG Y ORDERABLES FRY ARIA na * Aria Course Complete Treatment Information (12/06/2023 8:12 AM INSPECTOR [employer]ION) Course ID [id number] FRY ARIA Course Start Date 12/05/2023 08:50 INSPECTOR [employer] FRY ARIA Course End Date 12/06/2023 08:11 INSPECTOR [employer]ION FRY ARIA Reference Point [id number] FRY ARIA Dosage Given to Date cGy 0 FRY ARIA Plan ID [id number] FRY ARIA Fractions Treated to Date 0 FRY ARIA Planned Total Fractions 4 FRY ARIA Prescribed Dose Per Fraction 250 FRY ARIA Prescription Dose in cGy 1000 FRY ARIA Plan Primary Reference Point [id number] FRY ARIA Plan ID [id number] FRY ARIA Fractions Treated to Date 0 FRY ARIA Planned Total Fractions 15 FRY ARIA Prescribed Dose Per Fraction 267 FRY ARIA Prescription Dose in cGy 4005 FRY ARIA Plan Primary Reference Point [id number] FRY ARIA Plan ID [id number] FRY ARIA Fractions Treated to Date 0 FRY ARIA Planned Total Fractions 15 FRY ARIA Prescribed Dose Per Fraction 267 FRY ARIA Prescription Dose in cGy 4005 FRY ARIA Plan Primary Reference Point [id number] FRY ARIA Plan ID [id number] FRY ARIA Fractions Treated to Date 0 FRY ARIA Planned Total Fractions 15 FRY ARIA Prescribed Dose Per Fraction 267 FRY ARIA Prescription Dose in cGy 4005 FRY ARIA Plan Primary Reference Point [id number] FRY ARIA Plan ID [id number] FRY ARIA Fractions Treated to Date 0 FRY ARIA Planned Total Fractions 15 FRY ARIA Prescribed Dose Per Fraction 267 FRY ARIA Prescription Dose in cGy 4005 FRY ARIA Plan Primary Reference Point [id number] FRY ARIA Plan ID [id number] FRY ARIA Fractions Treated to Date 0 FRY ARIA Planned Total Fractions 15 FRY ARIA Prescribed Dose Per Fraction 267 FRY ARIA Prescription Dose in cGy 4005 FRY ARIA Plan Primary Reference Point [id number] FRY ARIA 12/06/2023 8:12 AM INSPECTOR [employer] Provider Not In System RADIATION ONCOLOG Y ORDERABLES Performing Organization Address [facility] Co de Phone Number FRY HOWARD na * Initial Rad Onc Treatment Planning CT Simulation (11/30/2023 10:00 AM INSPECTOR [employer] WHEEL [employer]ION) Narrative [facility] - 11/30/2023 10:00 AM INSPECT[employer]ION Jo Ann Biggs, RTT ? 11/30/2023 10:47 AM Initial Rad Onc Treatment Planning CT Simulation Performed by: Ronny Merritt M.D. Authorized by: Ronny Merritt M.D. ?? Ronny Merritt M.D. RADIATION ONCOLOGY ORDERABLES Performing Organization Address [facility] de Phone Number LISANDRA LAWRENCE na * XR BREAST SPECIMEN LEFT-Outside Mammogram (10/29/2023 12:10 PM INSPECTOR [employer]) Only the most recent of5 resultswithin the time period is included. Narrative [facility] - 11/19/2023 1:14 PM INSPECTOR [employer] This order has been created and auto-finalized to support the import of outside images. If available, original interpretation can be found on the Media Tab in Chart Review, in Document Viewer, or as an image in QREADS. If a re-interpretation or overread is required please follow defined workflow. ?? Provider Not In System IMG BI PROCEDURES Performing Organization Address [facility] Co de Phone Number [facility] NA * US BREAST MAGNETIC SEED LOCALIZATION LEFT-Outside US Breast (10/29/2023 11:40 AM INSPECTOR [employer] WHEEL [employer]ION) Only the most recent of3 resultswithin the time period is included. Narrative [facility] - 11/19/2023 1:14 PM INSPECTOR [employer] This order has been created and auto-finalized to support the import of outside images. If available, original interpretation can be found on the Media Tab in Chart Review, in Document Viewer, or as an image in QREADS. If a re-interpretation or overread is required please follow defined workflow. ?? Provider Not In System IMG BI PROCEDURES [facility] NA from Last 3 Months
--- OUTSIDE RECORDS SUMMARY | 2023-12-17 08:25 | XMS_ITS ---
Author Name Unknown Organization [facility] Address [address] [place] [address] Care Team Providers Care Manager Development Name Role Phone Unavailable Primary Care Provider Unavailabl e Active Problems Problem Noted Date Diagnosed Date Malignant Neoplasm Of Breast Lower Outer Quadrant Female Left 10/08/2023 Cancer Staging:Pathologic stage from 10/29/2023:Stage IA(pT1b, pN0(sn), cM0, G1, ER+, [place]+, HER2-, Oncotype DX score: 19) - Unsigned Current Oncology Plans No current plan information found. Past Plans No past plan information found. Radiation Treatments * Plan Last Treated On Elapsed Days Fractions Treated Prescribed Fraction Dose Prescribed Total Dose [id number] 12/14/2023 4 5 of 15 267 cGy 4,005 cGy Reference Point Last Treated On Elapsed Days Session Dose Total Dose [id number] 12/14/2023 4 267 cGy 1,335 cGy
--- OUTSIDE RECORDS SUMMARY | 2023-12-17 08:26 | XMS_ITS | Encounter Summary ---
Author Name Unknown Organization [facility] Address [address] [place] [address] Care Team Providers Care General Ii Farmworker Name Role Phone Unavailable Primary Care Provider Unavailabl e Reason for Visit * Radiation Therapy (Routine) - Authorized Specialty Diagnoses / Procedures Referred By Contac t Referred To Contact Diagnoses Malignant Neoplasm Of Breast Lower Outer Quadrant Female Left (HCC) Procedures Prior Auth Rad Tx [place] RADTN [place] DEL >=1 MEV COMPLEX 3D Rnony Merritt M.D. [address] [place] [phone] [facility] Referral ID Status Reason Start Date Expiration Date V isits Requested Visits Authorized [id number] Authorized 12/10/2023 11/20/2024 19 19 Encounter Details Date Type Department Care Team (Late st Contact Info) Description 12/10/2023 7:07 AM [facility] Hospital Encounter Department of Radiation Oncology in [place], [place] [address] [place] [address] Ronny Merritt M.D. [address] [place] [phone] Social History Tobacco Use Types Packs/Day Years Used Date Smoking Tobacco: Former Cigarettes 0.3 2 003 - 2010 Smokeless Tobacco: Never Alcohol Use Standard Drinks/Week Comments Not Currently 0 (1 standard drink = 0.6 oz pur e alcohol) [facility] Utilities Answer Date Recorded In the past [...] your living situation today? I have a [facility] place to live 11/25/2023 Sex and Gender Information Value Date Recorded Sex Assigned at Female 11/25/2023 8:25 PM CHEMICAL SPRAYER Gender Identity Female 11/25/2023 8:25 PM CHEMICAL SPRAYER Sexual Orientation Straight 11/25/2023 8: 25 PM CHEMICAL SPRAYER documented as of this encounter Plan of Treatment Upcoming Encounters Date Type Department Care Team (Late st Contact Info) Description 12/18/2023 8:30 AM CHEMICAL SPRAYER Appointment Department of Radiation Oncology in [place], [place] [address] [place] [address] Ronny Merritt M.D. [address] [place] [address] 12/19/2023 8:30 AM CHEMICAL SPRAYER Appointment Department of Radiation Oncology in [address] [address] Ronny Merritt M.D. [address] [place] [phone] 12/19/2023 9:00 AM CHEMICAL SPRAYER Appointment Department of Radiation Oncology in [address] [address] Ronny Merritt M.D. [address] [place] [phone] 12/20/2023 8:30 AM CHEMICAL SPRAYER Appointment Department of Radiation Oncology in [address] [address] Ronny Merritt M.D. [address] [place] [phone] 12/21/2023 8:30 AM CHEMICAL SPRAYER Appointment Department of Radiation Oncology in [address] [address] Ronny Merritt M.D. [address] [place] [phone] 12/24/2023 9:45 AM CHEMICAL SPRAYER Appointment Department of Radiation Oncology in [address] [address] Ronny Merritt M.D. [address] [place] [phone] 12/25/2023 9:45 AM CHEMICAL SPRAYER Appointment Department of Radiation Oncology in [address] [address] Ronny Merritt M.D. [address] [place] [phone] 12/26/2023 9:45 AM CHEMICAL SPRAYER Appointment Department of Radiation Oncology in [address] [address] Ronny Merritt M.D. [address] [place] [phone] 12/26/2023 10:00 AM CHEMICAL SPRAYER Appointment Department of Radiation Oncology in [address] [address] Ronny Merritt M.D. [address] [place] [phone] 12/27/2023 9:45 AM CHEMICAL SPRAYER Appointment Department of Radiation Oncology in [address] [address] Ronny Merritt M.D. [address] [place] [phone] 12/28/2023 9:45 AM CHEMICAL SPRAYER Appointment Department of Radiation Oncology in [address] [address] Ronny Merritt M.D. [address] [place] [phone] 12/31/2023 8:30 AM CHEMICAL SPRAYER Appointment Department of Radiation Oncology in [address] [address] Ronny Merritt M.D. [address] [place] [phone] 01/01/2024 8:30 AM CHEMICAL SPRAYER Appointment Department of Radiation Oncology in [address] [address] Ronny Merritt M.D. [address] [place] [phone] 01/02/2024 8:30 AM CHEMICAL SPRAYER Appointment Department of Radiation Oncology in [place], [place] [address] [place] [address] Ronny Merritt M.D. [address] [place] [phone] 01/02/2024 8:45 AM CHEMICAL SPRAYER Appointment Department of Radiation Oncology in [place], [place] [address] [place] [phone] Ronny Merritt M.D. [address] [place] [phone] 01/03/2024 8:30 AM CHEMICAL SPRAYER Appointment Department of Radiation Oncology in [place], [place] [address] [place] [address] Ronny Merritt M.D. [address] [place] [phone] 01/04/2024 7:30 AM CHEMICAL SPRAYER Appointment Department of Radiation Oncology in [address] [address] Ronny Merritt M.D. [address] [place] [phone] documented as of this encounter Visit Diagnoses Not on filedocumented in this encounter
--- OUTSIDE RECORDS SUMMARY | 2023-12-17 08:26 | XMS_ITS | Encounter Summary ---
Author Name Unknown Organization [facility] Address [address] [place] [address] Care Team Providers Care Executive Personal Assistant Name Role Phone Unavailable Primary Care Provider Unavailabl e Reason for Referral * Specialty Diagnoses / Procedures Referred By Lukas will Referred To Contact Bhumika García APRN, C.N.P., D.N.P. 200 [place] [address] [facility] Region Referral ID Status Reason Start Date Expiration Date Visits Re quested Visits Authorized TICAL ADVISOR * Specialty Diagnoses / Procedures Referred By Lukas t Referred To Contact Bhumika García APRN, C.N.P., D.N.P. 200 [place] [address] [facility] Region Referral ID Status Reason Start Date Expiration Date Visits Re quested Visits Authorized TICAL ADVISOR * Radiation Therapy (Routine) - Authorized Specialty Diagnoses / Procedures Referred By Lukas t Referred To Contact Diagnoses Malignant Neoplasm Of Breast Lower Outer Quadrant Female Left (HCC) Procedures Management Visit Ronny Merritt M.D. 200 [place] [address] [facility] Region Referral ID Status Reason Start Date Expiration Date V isits Requested Visits Authorized [id number] Authorized 11/21/2023 11/20/2024 10 10 TICAL ADVISOR * Radiation Therapy (Routine) - Authorized Specialty Diagnoses / Procedures Referred By Lukas will Referred To Contact Diagnoses Malignant Neoplasm Of Breast Lower Outer Quadrant Female Left (HCC) Procedures Prior Auth Rad Tx [place] RADTN TX DEL >=1 MEV COMPLEX 3D Ronny Merritt M.D. [address] [place] [phone] [facility] Referral ID Status Reason Start Date Expiration Date V isits Requested Visits Authorized [id number] Authorized 12/10/2023 11/20/2024 19 19 TICAL ADVISOR * Radiation Therapy (Routine) - Closed Specialty Diagnoses / Procedures Referred By Lukas will Referred To Contact Diagnoses Malignant Neoplasm Of Breast Lower Outer Quadrant Female Left (HCC) Procedures Initial Rad Onc Treatment Planning CT Simulation Ronny Merritt M.D. 200 [place] [address] [facility] Referral ID Status Reason Start Date Expiration Date Visits Re quested Visits Authorized [id number] Closed 11/21/2023 11/20/2024 1 1 TICAL ADVISOR Encounter Details Date Type Department Care Team (Late st Contact Info) Description 11/21/2023 Orders Only Department of Radiation Oncology in [place], [place] [address] [place] [phone] Bhumika García APRN, C.N.P., D.N.P. [address] [place] [phone] Malignant Neoplasm Of Breast Lower Outer Quadrant Female Left (HCC) (Primary Dx) Social History Tobacco Use Types Packs/Day Years Used Date Smoking Tobacco: Former Cigarettes 0.3 2 003 - 2010 Smokeless Tobacco: Never Nutrition Answer Date Recorded Nutrition: EVOO Fat Source Unknown 01/14 Nutrition: Servings of Fruits/Vegetables per Day Not on file 01/14/2021 Dental Answer Date Recorded Dental: Regular Dentist Unknown 01/15/20 21 Sex and Gender Information Value Date Recorded Sex Assigned at Female 11/25/2023 8:25 PM POLITICAL ADVISOR Gender Identity Female 11/25/2023 8:25 PM POLITICAL ADVISOR Sexual Orientation Straight 11/25/2023 8: 25 PM POLITICAL ADVISOR documented as of this encounter Plan of Treatment Upcoming Encounters Date Type Department Care Team (Late st Contact Info) Description 12/18/2023 8:30 AM POLITICAL ADVISOR Appointment Department of Radiation Oncology in [address] [address] Ronny Merritt M.D. [address] [place] [phone] 12/19/2023 8:30 AM POLITICAL ADVISOR Appointment Department of Radiation Oncology in [address] [address] Ronny Merritt M.D. [address] [place] [phone] 12/19/2023 9:00 AM POLITICAL ADVISOR Appointment Department of Radiation Oncology in [address] [address] Ronny Merritt M.D. [address] [place] [phone] 12/20/2023 8:30 AM POLITICAL ADVISOR Appointment Department of Radiation Oncology in [address] [address] Ronny Merritt M.D. [address] [place] [phone] 12/21/2023 8:30 AM POLITICAL ADVISOR Appointment Department of Radiation Oncology in [address] [address] Ronny Merritt M.D. [address] [place] [phone] 12/24/2023 9:45 AM POLITICAL ADVISOR Appointment Department of Radiation Oncology in [address] [address] Ronny Merritt M.D. [address] [place] [phone] 12/25/2023 9:45 AM POLITICAL ADVISOR Appointment Department of Radiation Oncology in [address] [address] Ronny Merritt M.D. [address] [place] [phone] 12/26/2023 9:45 AM POLITICAL ADVISOR Appointment Department of Radiation Oncology in [address] [address] Ronny Merritt M.D. [address] [place] [phone] 12/26/2023 10:00 AM POLITICAL ADVISOR Appointment Department of Radiation Oncology in [address] [address] Ronny Merritt M.D. [address] [place] [phone] 12/27/2023 9:45 AM POLITICAL ADVISOR Appointment Department of Radiation Oncology in [address] [address] Ronny Merritt M.D. [address] [place] [phone] 12/28/2023 9:45 AM POLITICAL ADVISOR Appointment Department of Radiation Oncology in [place], [place] [address] [place] [phone] Ronny Merritt M.D. [address] [place] [phone] 12/31/2023 8:30 AM POLITICAL ADVISOR Appointment Department of Radiation Oncology in [address] [address] Ronny Merritt M.D. [address] [place] [phone] 01/01/2024 8:30 AM POLITICAL ADVISOR Appointment Department of Radiation Oncology in [address] [address] Ronny Merritt M.D. [address] [place] [phone] 01/02/2024 8:30 AM POLITICAL ADVISOR Appointment Department of Radiation Oncology in [address] [address] Ronny Merritt M.D. [address] [place] [phone] 01/02/2024 8:45 AM POLITICAL ADVISOR Appointment Department of Radiation Oncology in [address] [address] Ronny Merritt M.D. [address] [place] [phone] 01/03/2024 8:30 AM POLITICAL ADVISOR Appointment Department of Radiation Oncology in [address] [address] Ronny Merritt M.D. [address] [place] [phone] 01/04/2024 7:30 AM POLITICAL ADVISOR Appointment Department of Radiation Oncology in [place], [place] [address] [place] [address] Ronny Merritt M.D. [address] [place] [address] Scheduled Orders Name Type Priority Associated Diagnoses Order Schedule Prior Auth Rad Tx Radiation Oncology Routine Malignant Neoplasm Of Breast Lower Outer Quadrant Female Left (HCC) Ordered: 11/21/2023 Management Visit Radiation Oncology Routine Malignant Neoplasm Of Breast Lower Outer Quadrant Female Left (HCC) 10 Occurrences starting 11/21/2023 until 11/21/2024 Scheduled Referrals Name Type Priority Associated Diagnoses Orde r Schedule Radiation Oncology - PRO education visit Outpatient Referral Routine Malignant Neoplasm Of Breast Lower Outer Quadrant Female Left (HCC) Expected: 11/21/2023 (Approximate), Expires: 02/19/2025 Radiation Oncology - Nurse education visit (clinic) Outpatient Referral Routine Malignant Neoplasm Of Breast Lower Outer Quadrant Female Left (HCC) Expected: 11/21/2023 (Approximate), Expires: 11/21/2024 documented as of this encounter Results * Initial Rad Onc Treatment Planning CT Simulation (11/30/2023 10:00 AM POLITICAL ADVISOR) Narrative LISANDRA LAWRENCE - 11/30/2023 10:00 AM POLITICAL ADVISOR Jo Ann Biggs, RTT ? 11/30/2023 10:47 AM Initial Rad Onc Treatment Planning CT Simulation Performed by: Ronny Merritt M.D. Authorized by: Ronny Merritt M.D. ?? Ronny Merritt M.D. RADIATION ONCOLOGY ORDERABLES LISANDRA LAWRENCE na documented in this encounter Visit Diagnoses Diagnosis Malignant Neoplasm Of Breast Lower Outer Quadrant Female Left (HCC)- Primary Malignant Neoplasm Of Breast Lower Outer Quadrant Female Left (HCC) documented in this encounter
--- OUTSIDE RECORDS SUMMARY | 2023-12-17 08:26 | XMS_ITS | Encounter Summary ---
Author Name Unknown Organization [facility] Address [address] [place] [address] Care Team Providers Care Recruitment Manager Name Role Phone Unavailable Primary Care Provider Unavailabl e Reason for Referral * Radiation Therapy (Routine) - Closed Specialty Diagnoses / Procedures Referred By Contac t Referred To Contact Diagnoses Malignant Neoplasm Of Breast Lower Outer Quadrant Female Left (HCC) Procedures Initial Rad Onc Treatment Planning CT Simulation Ronny Merritt M.D. 200 [place] [address] [facility] Region Referral ID Status Reason Start Date Expiration Date Visits Re quested Visits Authorized [id number] Closed 11/21/2023 11/20/2024 1 [address] TER PUMP OILER Reason for Visit * Radiation Therapy (Routine) - Closed Specialty Diagnoses / Procedures Referred By Contac t Referred To Contact Diagnoses Malignant Neoplasm Of Breast Lower Outer Quadrant Female Left (HCC) Procedures Initial Rad Onc Treatment Planning CT Simulation Ronny Merritt M.D. 200 [place] [address] [facility] Region Referral ID Status Reason Start Date Expiration Date Visits Re quested Visits Authorized [id number] Closed 11/21/2023 11/20/2024 1 1 Encounter Details Date Type Department Care Team (Latest Contact Info) Description 11/30/2023 10:00 AM BOOSTER PUMP OILER - 11/30/2023 4:54 PM BOOSTER PUMP OILER Hospital Encounter Department of Radiation Oncology in [place], [place] [address] [place] [address] Ronny Merritt M.D. [address] [place] [address] Malignant Neoplasm Of Breast Lower Outer Quadrant Female Left (HCC) Social History Tobacco Use Types Packs/Day Years Used Date Smoking Tobacco: Former Cigarettes 0.3 2 - 2010 Smokeless Tobacco: Never Alcohol Use Standard Drinks/Week Comments Not Currently 0 (1 standard drink = 0.6 oz pur e alcohol) [facility] Utilities Answer Date Recorded In the [...] Date Recorded Employment status Working with temporary [employer] tions 11/25/2023 Housing Stability Answer Date Recorded What is your living situation today? I have a [facility] place to live 11/25/2023 Sex and Gender Information Value Date Recorded Sex Assigned at Female 11/25/2023 8:25 PM BOOSTER PUMP OILER Gender Identity Female 11/25/2023 8:25 PM BOOSTER PUMP OILER Sexual Orientation Straight 11/25/2023 8: 25 PM BOOSTER PUMP OILER documented as of this encounter Medications at Time of Discharge Medication Sig Dispensed Refills Start Date End Date fluticasone propionate (FLONASE) 50 mcg/actuation nasal spray SPRAY 2 SPRAYS INTO EACH NOSTRIL ONCE A DAY FOR 1 WEEK THEN MAY ADJUST TO 1 TO 2 SPRAYS IN EACH NOSTIL ONCE A DAY 0 11/11/2022 Lactobacillus rhamnosus GG (CULTURELLE) 10 billion cell capsule Take 1 capsule by mouth daily. 0 09/12/2017 loratadine (CLARITIN) 10 mg tablet Take 10 mg by mouth. 0 01/09/2023 medroxyPROGESTERone (Provera) 10 mg tablet Take 1 tablet by mouth daily. 0 09/25/2013 metroNIDAZOLE (METROGEL) 0.75 % (37.5mg/5 gram) vaginal gel INSERT 1 APPLICATOR FULL VAGINALLY EVERY DAY FOR 5 DAYS 0 09/07/2023 mometasone (ELOCON) 0.1 % cream Apply 1 Application topically 2 (two) times a day. Apply to left breast twice daily starting first day of radiation treatment. Continue for 2 weeks following the completion of radiation treatment. 100 g 0 11/30/2023 multivitamin tablet Take 1 tablet by mouth daily. 0 06/03/2019 tamoxifen (NOLVADEX) 20 mg tablet Take 1 tablet by mouth daily. 0 11/26/2023 documented as of this encounter Procedure Notes * Jo Ann Biggs, RTT - 11/30/2023 10:00 AM CSTAssociated Order(s): Initial Rad Onc Treatment Planning CT Simulation Pre-Procedure Diagnose(s): Malignant Neoplasm Of Breast Lower Outer Quadrant Female Left (HCC) Post-Procedure Diagnose(s): Malignant Neoplasm Of Breast Lower Outer Quadrant Female Left (HCC) Initial Rad Onc Treatment Planning CT Simulation Performed by: Ronny Merritt M.D. Authorized by: Ronny Merritt M.D. Simulation was performed under physician supervision based on physician order in preparation for radiation therapy. Physician was immediately available to provide assistance and direction throughout the procedure. Written consent for treatment was completed or confirmed. The patient was appropriately identified and placed in the treatment position using the necessary immobilization to ensure a reproducible treatment position. Reference marin were placed to facilitate marking of isocenter. Area scanned:Chest Contrast used for the simulation procedure: None Patient position:head first supine and arms up Custom immobilization: Vac-hermes Motion management: Breath hold scan Bolus: No CT guidance: Following positioning of the patient, a series of slices was obtained to be utilized in treatment planning. CT images were transferred to the [facility] treatment planning system, after a reference isocenter was determined and marked. Segmentation and treatment planning will take place prior to treatment delivery. Patient set up and imaging was appropriate and completed without incident. Electrical Repairer use:No TER PUMP OILER Associated attestation - Ronny Merritt M.D. - 11/30/2023 4:53 PM BOOSTER PUMP OILER I was available for the entirety of the procedure but only present for wire placement and image review. Signed by: Ronny Merritt M.D. 11/30/23 4:53 PM BOOSTER PUMP OILER [facility] [place] documented in this encounter Plan of Treatment Upcoming Encounters Date Type Department Care Team (Late st Contact Info) Description 12/18/2023 8:30 AM BOOSTER PUMP OILER Appointment Department of Radiation Oncology in [address] [address] Ronny Merritt M.D. [address] [place] [phone] 12/19/2023 8:30 AM BOOSTER PUMP OILER Appointment Department of Radiation Oncology in [address] [address] Ronny Merritt M.D. [address] [place] [phone] 12/19/2023 9:00 AM BOOSTER PUMP OILER Appointment Department of Radiation Oncology in [address] [address] Ronny Merritt M.D. [address] [place] [phone] 12/20/2023 8:30 AM BOOSTER PUMP OILER Appointment Department of Radiation Oncology in [address] [address] Ronny Merritt M.D. [address] [place] [phone] 12/21/2023 8:30 AM BOOSTER PUMP OILER Appointment Department of Radiation Oncology in [address] [address] Ronny Merritt M.D. [address] [place] [phone] 12/24/2023 9:45 AM BOOSTER PUMP OILER Appointment Department of Radiation Oncology in [address] [address] Ronny Merritt M.D. [address] [place] [phone] 12/25/2023 9:45 AM BOOSTER PUMP OILER Appointment Department of Radiation Oncology in [address] [address] Ronny Merritt M.D. [address] [place] [phone] 12/26/2023 9:45 AM BOOSTER PUMP OILER Appointment Department of Radiation Oncology in [address] [address] Ronny Merritt M.D. [address] [place] [phone] 12/26/2023 10:00 AM BOOSTER PUMP OILER Appointment Department of Radiation Oncology in [place] [address] [place] [address] Ronny Merritt M.D. [address] [place] [phone] 12/27/2023 9:45 AM BOOSTER PUMP OILER Appointment Department of Radiation Oncology in [address] [address] Ronny Merritt M.D. [address] [place] [phone] 12/28/2023 9:45 AM BOOSTER PUMP OILER Appointment Department of Radiation Oncology in [address] [address] Ronny Merritt M.D. [address] [place] [phone] 12/31/2023 8:30 AM BOOSTER PUMP OILER Appointment Department of Radiation Oncology in [address] [address] Ronny Merritt M.D. [address] [place] [phone] 01/01/2024 8:30 AM BOOSTER PUMP OILER Appointment Department of Radiation Oncology in [address] [address] Ronny Merritt M.D. [address] [place] [phone] 01/02/2024 8:30 AM BOOSTER PUMP OILER Appointment Department of Radiation Oncology in [address] [address] Ronny Merritt M.D. [address] [place] [phone] 01/02/2024 8:45 AM BOOSTER PUMP OILER Appointment Department of Radiation Oncology in [place], [place] [address] [place] [phone] Ronny Merritt M.D. [address] [place] [address] 01/03/2024 8:30 AM BOOSTER PUMP OILER Appointment Department of Radiation Oncology in [place], [place] [address] [place] [phone] Ronny Merritt M.D. [address] [place] [phone] 01/04/2024 7:30 AM BOOSTER PUMP OILER Appointment Department of Radiation Oncology in [place], [place] [address] [place] [phone] Ronny Merritt M.D. [address] [place] [phone] documented as of this encounter Procedures Procedure Name Priority Date/Time Associated Diagnosis Comments INITIAL RAD ONC TREATMENT PLANNING CT SIMULATION Routine 11/30/2023 10:00 AM BOOSTER PUMP OILER Malignant Neoplasm Of Breast Lower Outer Quadrant Female Left (HCC) documented in this encounter Results * Initial Rad Onc Treatment Planning CT Simulation (11/30/2023 10:00 AM BOOSTER PUMP OILER) Narrative LISANDRA LAWRENCE - 11/30/2023 10:00 AM BOOSTER PUMP OILER Jo Ann Biggs, RTT ? 11/30/2023 10:47 AM Initial Rad Onc Treatment Planning CT Simulation Performed by: Ronny Merritt M.D. Authorized by: Ronny Merritt M.D. ?? Ronny Merritt M.D. RADIATION ONCOLOGY ORDERABLES FRY IESHAShelly na documented in this encounter Visit Diagnoses Diagnosis Malignant Neoplasm Of Breast Lower Outer Quadrant Female Left (HCC) documented in this encounter
--- OUTSIDE RECORDS SUMMARY | 2023-12-17 08:26 | XMS_ITS | Encounter Summary ---
Author Name Unknown Organization [facility] Address [address] [place] [id number] Care Team Providers Care [employer] Le[employer] Supervisor Name Role Phone Unavailable Primary Care Provider Unavailabl e Reason for Visit * Radiation Therapy (Routine) - Authorized Specialty Diagnoses / Procedures Referred By Contac t Referred To Contact Diagnoses Malignant Neoplasm Of Breast Lower Outer Quadrant Female Left (HCC) Procedures Prior Auth Rad Tx [place] RADTN [place] DEL >=1 MEV COMPLEX 3D Ronny Merritt M.D. [address] [place] [phone] [facility] Referral ID Status Reason Start Date Expiration Date V isits Requested Visits Authorized [id number] Authorized 12/10/2023 11/20/2024 19 19 Encounter Details Date Type Department Care Team (Late st Contact Info) Description 12/12/2023 7:59 AM [facility] Hospital Encounter Department of Radiation Oncology in [place], [place] [address] [place] [phone] Ronny Merritt M.D. [address] [place] [phone] Social History Tobacco Use Types Packs/Day Years [...] your living situation today? I have a [facility] place to live 11/25/2023 Sex and Gender Information Value Date Recorded Sex Assigned at Female 11/25/2023 8:25 PM [employer]IATE Gender Identity Female 11/25/2023 8:25 PM [employer] IN[employer]CTION[employer]IATE Sexual Orientation Straight 11/25/2023 8: 25 PM [employer]OYMENT INSTRUCTIONAL ASSOCIATE documented as of this encounter Plan of Treatment Upcoming Encounters Date Type Department Care Team (Late st Contact Info) Description 12/18/2023 8:30 AM [employer] INSTRU[employer]AL [employer]OCIATE Appointment Department of Radiation Oncology in [place], [place] [address] [place] [address] Ronny Merritt M.D. [address] [place] [address] 12/19/2023 8:30 AM EM[employer]OYMENT INSTRUCTIONAL ASSOCIATE Appointment Department of Radiation Oncology in [address] [phone] Ronny Merritt M.D. [address] [place] [phone] 12/19/2023 9:00 AM EMPLOYMENT INSTRUCTIONAL ASSOCIATE Appointment Department of Radiation Oncology in [address] [address] Ronny Merritt M.D. [address] [place] [phone] 12/20/2023 8:30 AM EMPLOYMENT INSTRUCTIONAL ASSOCIATE Appointment Department of Radiation Oncology in [address] [address] Ronny Merritt M.D. [address] [place] [phone] 12/21/2023 8:30 AM EMPLOYMENT INSTRUCTIONAL ASSOCIATE Appointment Department of Radiation Oncology in [address] [address] Ronny Merritt M.D. [address] [place] [phone] 12/24/2023 9:45 AM EMPLOYMENT INSTRUCTIONAL ASSOCIATE Appointment Department of Radiation Oncology in [address] [address] Ronny Merritt M.D. [address] [place] [phone] 12/25/2023 9:45 AM EMPLOYMENT INSTRUCTIONAL ASSOCIATE Appointment Department of Radiation Oncology in [address] [address] Ronny Merritt M.D. [address] [place] [phone] 12/26/2023 9:45 AM EMPLOYMENT INSTRUCTIONAL ASSOCIATE Appointment Department of Radiation Oncology in [address] [address] Ronny Merritt M.D. [address] [place] [phone] 12/26/2023 10:00 AM EMPLOYMENT INSTRUCTIONAL ASSOCIATE Appointment Department of Radiation Oncology in [address] [address] Ronny Merritt M.D. [address] [place] [phone] 12/27/2023 9:45 AM EMPLOYMENT INSTRUCTIONAL ASSOCIATE Appointment Department of Radiation Oncology in [address] [address] Ronny Merritt M.D. [address] [place] [phone] 12/28/2023 9:45 AM EMPLOYMENT INSTRUCTIONAL ASSOCIATE Appointment Department of Radiation Oncology in [address] [address] Ronny Merritt M.D. [address] [place] [phone] 12/31/2023 8:30 AM EMPLOYMENT INSTRUCTIONAL ASSOCIATE Appointment Department of Radiation Oncology in [address] [address] Ronny Merritt M.D. [address] [place] [phone] 01/01/2024 8:30 AM EMPLOYMENT INSTRUCTIONAL ASSOCIATE Appointment Department of Radiation Oncology in [address] [address] Ronny Merritt M.D. [address] [place] [phone] 01/02/2024 8:30 AM EMPLOYMENT INSTRUCTIONAL ASSOCIATE Appointment Department of Radiation Oncology in [place], [place] [address] [place] [address] Ronny Merritt M.D. [address] [place] [phone] 01/02/2024 8:45 AM EMPLOYMENT INSTRUCTIONAL ASSOCIATE Appointment Department of Radiation Oncology in [place], [place] [address] [place] [phone] Ronny Merritt M.D. [address] [place] [phone] 01/03/2024 8:30 AM EMPLOYMENT INSTRUCTIONAL ASSOCIATE Appointment Department of Radiation Oncology in [place], [place] [address] [place] [address] Ronny Merritt M.D. [address] [place] [phone] 01/04/2024 7:30 AM EMPLOYMENT INSTRUCTIONAL ASSOCIATE Appointment Department of Radiation Oncology in [address] [address] Ronny Merritt M.D. [address] [place] [phone] documented as of this encounter Visit Diagnoses Not on filedocumented in this encounter
--- OUTSIDE RECORDS SUMMARY | 2023-12-17 08:26 | XMS_ITS | Clinical Summary ---
Author Name Unknown Organization [facility] Address [place], [place] [address] Care Team Providers Care Client Care Specialist Name Role Phone Yina Joanna Zaidi DO Primary Care Provider [phone] Melita Chilel RN Unavailable [phone] Nathalie Andrews MD Unavailable [phone] [facility]available Zeny Kaur MD Unavailable [phone] Karen Leon GROCERY PACKER Unavailable Nixon Felton Unavailable [phone] Allergies Active Allergy Reactions Criticality Noted Date Comments Spironolactone Hyponatremia 08/02/2010 Medications Medication Sig Dispensed Refills Start Date End Date Status lactobacillus rhamnosus, GG, (CULTURELLE) 10 billion cell capsule Take 1 capsule by mouth once daily. 0 09/12/2017 Active multivitamin (MVI) tablet Take 1 tablet by mouth once daily. 0 06/03/2019 Active loratadine (CLARITIN) 10 mg tablet Take 10 mg by mouth once daily. 0 Active fluticasone (50 mcg per actuation) nasal solution (FLONASE) SPRAY 2 SPRAYS INTO EACH NOSTRIL ONCE A DAY FOR 1 WEEK THEN MAY ADJUST TO 1 TO 2 SPRAYS IN EACH NOSTIL ONCE A DAY 0 11/11/2022 Active tamoxifen (NOLVADEX) 20 mg tabletIndication s:Malignant neoplasm of lower-outer quadrant of left breast of female, estrogen receptor positive (HC) Take 1 Tablet (20 mg) by mouth once daily. 90 Tablet 3 11/26/2023 Active oxyCODONE (ROXICODONE) 5 mg immediate release tabletIndication s:Malignant neoplasm of lower-outer quadrant of left breast of female, estrogen receptor positive (HC) Take 1 Tablet (5 mg) by mouth every 6 hours if needed for Pain. 5 Tablet 0 10/29/2023 4 Discontinue d(*Patient states no longer taking) acetaminophen (TYLENOL EXTRA STRGTH) 500 mg tabletIndication s:Malignant neoplasm of lower-outer quadrant of left breast of female, estrogen receptor positive (HC) Take 2 Tablets (1,000 mg) by mouth every 6 hours if needed for Pain (For mild pain 1st choice. May take either Tylenol tablet or liquid, if both ordered.). Max acetaminophen dose: 4000mg in 24 hrs. 0 10/29/2023 4 Discontinue d(*Patient states no longer taking) ibuprofen (ADVIL; MOTRIN) 600 mg tablet Take 1 Tablet (600 mg) by mouth every 6 hours if needed for Pain. Maximum of 3200 mg in 24 hours. 0 4 Discontinue d(*Patient states no longer taking) acetaminophen (TYLENOL) 325 mg tablet Take 2 Tablets (650 mg) by mouth every 4 hours if needed for Pain. Max acetaminophen dose: 4000mg in 24 hrs. 0 4 Discontinue d(*Patient states no longer taking) Active Problems Problem Noted Date Diagnosed Date Malignant neoplasm of lower- outer quadrant of left breast, estrogen receptor positive 10/08/2023 Cancer Staging:Clinical stage from 10/08/2023:Stage IA(cT1b, cN0, cM0, G1, ER+, WI+, HER2-) - Signed by Nathalie Andrews MD on 10/08/2023 Pathologic stage from 11/11/2023:Stage IA(pT1b, pN0(sn), cM0, G1, ER+, WI+, HER2-) - Unsigned Migraine with aura 09/14/2023 Menorrhagia 09/14/2023 Venous insufficiency 09/12/2017 Superficial thrombophlebitis 10/24/2012 PCOS (polycystic ovarian syndrome) 06/22/2009 Irregular menstrual cycle 03/13/2007 Obesity, unspecified 03/13/2007 Overview: BMI 30.4 Resolved Problems Problem Noted Date Diagnosed Date Resolved Date abnormality affecting management of mother 03/16/2015 12/30/2019 Tobacco use disorder 03/13/2007 012 Encounters Date Type Department Care Team Description 11/29/[address] [place] [address] Karen Wolf MD Financial Questions/Services (Radiation) 11/26/2023 3:00 PM PHYSICAL THERAPY AIDES TEACHER Office Visit [address] [address] Zeny Kaur MD Consult (Breast cancer) 11/26/2023 Travel 11/22/2023 Travel 11/13/2023 2:45 PM PHYSICAL THERAPY AIDES TEACHER Office Visit [facility] [address] [address] Nathalie Andrews MD Post-op (Breast lumpectomy and SLN biopsy; reexcision of margins) 11/13/2023 Travel 11/09/2023 Travel 11/09/2023 Oncology Nurse Navigator Task [facility] [address] [place] [address] Melita Chilel RN 11/08/2023 Oncology Nurse Navigator Task [facility] [address] [address] [place] [address] Melita Chilel RN 11/08/2023 Telephone [facility] [address] [place] [address] Nathalie Andrews MD 11/07/2023 1:03 PM PHYSICAL THERAPY AIDES TEACHER Anesthesia Event [facility] [address] [address] Dez Vidal MD 11/07/2023 12:51 PM PHYSICAL THERAPY AIDES TEACHER - 11/07/2023 2:08 PM PHYSICAL THERAPY AIDES TEACHER Surgery [facility] [address] [place] [address] Nathalie Andrews MD Margin revision left breast 11/07/2023 11:00 AM PHYSICAL THERAPY AIDES TEACHER - 11/07/2023 3:43 PM PHYSICAL THERAPY AIDES TEACHER Hospital Encounter [facility] [address] [place] [address] Nathalie Andrews MD Discharge Disposition: Home Self Care 11/06/2023 Travel 11/05/2023 Telephone [facility] [address] [address] Vanessa Busby, OSCAR 11/01/2023 Oncology Nurse Navigator Task [facility] [address] [facility] [address] [place] [address] Melita Chilel, OSCAR 10/31/[address] [facility] [address] [facility] [address] [place] [address] [facility] Cancer Surgery Scheduled 10/31/2023 Telephone [facility] [address] [address] Emelia Richter, RN Appointment 10/31/2023 Oncology Nurse Navigator Task [facility] [address] [facility] [address] [place] [address] Melita Chilel, OSCAR 10/30/2023 Telephone [facility] [address] [place] [address] Nathalie Andrews MD 10/30/2023 Telephone [facility] [address] [address] Nathalie Andrews MD 10/29/2023 11:17 AM PHYSICAL THERAPY AIDES TEACHER Anesthesia Event [facility] [address] [address] Dez Vidal MD Martinson, Alec R, [employer] [facility] 10/29/2023 10:02 AM PHYSICAL THERAPY AIDES TEACHER - 10/29/2023 12:19 PM PHYSICAL THERAPY AIDES TEACHER Surgery [facility] [address] [address] Nathalie Andrews MD Magnetic seed localized left breast lumpectomy with left sentinel lymph node biopsy 10/29/2023 6:41 AM PHYSICAL THERAPY AIDES TEACHER - 10/29/2023 2:41 PM PHYSICAL THERAPY AIDES TEACHER Hospital Encounter [facility] [address] [place] [address] Nathalie Andrews MD Malignant neoplasm of lower-outer quadrant of left breast of female, estrogen receptor positive (HC) Discharge Disposition: Home Self Care 10/29/2023 Travel 10/26/2023 Travel 10/26/2023 Oncology Nurse Navigator Task [facility] [address] [facility] [address] [place] [address] Melita Chilel RN 10/23/2023 Oncology Nurse Navigator Task [place] [address] [address] Melita Chilel RN 10/22/2023 8:45 AM PHYSICAL THERAPY AIDES TEACHER Preop Visit [facility] [address] [place] [address] Joanna Bran, Pre-Op Exam (10/29/23 Magnetic seed localized left breast lumpectomy with left sentinel lymph node biopsy ANW Dr. Andrews ) 10/22/2023 Travel 10/19/2023 Telephone [facility] [address] [facility] [address] [place] [address] Geetha Renner, MS, CGC Results (Cancer genetic testing results) 10/11/2023 7:50 AM PHYSICAL THERAPY AIDES TEACHER Orders Only [facility] [address] [place] [address] Lab, Jessa Lab 10/11/2023 Telephone [facility] [address] [address] Melita Chilel RN Oncology Nurse Navigation 10/11/2023 Telephone [facility] [address] [address] Melita Chilel RN Oncology Nurse Navigation 10/11/2023 Oncology Nurse Navigation [facility] [address] [place] [address] Melita Chilel, health plan manager Nurse Navigation 10/11/2023 Travel 10/10/2023 9:00 AM PHYSICAL THERAPY AIDES TEACHER Telemedicine [facility] [address] [place] [address] Geetha Renner MS, KD Telehealth (Virtual visit); Counseling (Cancer genetic counseling) 10/10/2023 Oncology Nurse Navigator Task [facility] [address] [place] [address] Melita Chilel, RN 10/10/2023 Oncology Nurse Navigator Task [facility] [address] [facility] [address] [place] [address] Melita Chilel RN 10/10/2023 Telephone [facility] [address] [place] [address] [facility] Cancer genetics 10/10/2023 Oncology Nurse Navigator Task [facility] [address] [address] Melita Chilel RN 10/10/2023 Orders Only [facility] [address] [facility] [address] [place] [address] Geetha Renner MS, [facility] <No scans attached> 10/09/2023 9:00 AM PHYSICAL THERAPY AIDES TEACHER Office Visit [facility] [address] [facility] [address] [place] [address] Nathalie Andrews MD Consult (Breast Cancer ) 10/09/[address] [facility] [address] [facility] [address] [place] [address] Stevenson, [facility] Cancer Surgery Scheduled 10/09/2023 [facility] [address] [facility] [address] [place] [address] Claudia Rm RN Research (Astrin study) 10/09/2023 Travel 10/08/2023 Telephone [facility] [address] [place] [address] [facility] Cancer genetics 10/03/2023 Telephone [facility] [address] [place] [address] Emelia Richter, OSCAR Appointment (Breast cancer PVP) 10/03/2023 Telephone [facility] [address] [place] [address] [facility] Cancer Referral (Invasive ductal carcinoma / Surgical Oncology) 10/03/2023 Telephone [facility] [address] [place] [address] Michelle Madera, GROCERY PACKER Results 10/02/2023 2:19 PM PHYSICAL THERAPY AIDES TEACHER - 10/02/2023 11:59 PM PHYSICAL THERAPY AIDES TEACHER Hospital Encounter [facility] [address] [place] [address] Joanna Bran, DO Abnormal mammogram 10/02/2023 Travel 09/25/2023 3:15 PM PHYSICAL THERAPY AIDES TEACHER Ancillary Procedure [facility] [address] [place] [address] 09/25/2023 2:30 PM PHYSICAL THERAPY AIDES TEACHER Ancillary Procedure [facility] [address] [place] [address] 09/25/2023 Travel 09/21/2023 Travel 09/18/2023 1:40 PM PHYSICAL THERAPY AIDES TEACHER Ancillary Procedure [facility] [address] [place] [address] 09/18/2023 Travel from Last 3 Months Immunizations Name Administration Dates Next Due COVID-19 vaccine ([employer] NTmobiTeris 30mcg/0.3mL) LIZETTE MURCIA 04/05/2021,03/03/2021 Influenza Virus, Unspecified 08/21/2022, 10/05/2014,08/21/2013,2011 Influenza, IIV3 (Age 6-35 mos) 10/05/2014 Influenza, IIV3 (Age >=3 years) 08/21/2013,09/06,08/15/2011 Influenza, IIV4 08/09/2021, 0,07/22/2019,2017,08/01/2017,08/01/2016,10/26/2015 Influenza, IIV4 (=>6mos) MDV 08/21/2022 Tdap 11/28/2018, 5,08/12/2012,2010 Family History Medical History Relation Name Comments Cancer Brother Non Hodgkins ly mphoma Alcohol/Drug Father Unknown Father Other Maternal Grandfather brain t umor Acute myelogenous leukemia Maternal Grandmother Cancer Maternal Grandmother Brain C ancer, he passed at age 62. Other Maternal Uncle Hepatitis C, Hepatitis, Kidney failure at age 58 COPD Mother Cancer Mother Uterine Other Mother Migraine Cancer-breast Other mat cousin Cancer-breast Paternal Aunt Migraines Sister 1 Psychiatric illness Sister 1 depressi on, anxiety Basal cell carcinoma Sister 2 Anesthesia Problem No Family History Blood Disease No Family History Cancer-colon No Family History Cancer-ovarian No Family History Cancer-pancreatic No Family History Cancer-prostate No Family History Relation Name Status Comments Brother Father Alive Maternal Grandfather Maternal Grandmother Maternal Uncle Mother Other mat cousin Paternal Aunt Sister 1 Sister 2 Social History Tobacco Use Types Packs/Day Years Used Date Smoking Tobacco: Former Cigarettes 0.3 8 1 - 09/02/2011 Smokeless Tobacco: Never Tobacco Cessation:Counseling Given: Not Answered Alcohol Use Standard Drinks/Week Comments Yes 0 (1 standard drink = 0.6 oz pur e alcohol) 1-2 per month PHQ-2 Answer Date Recorded PHQ-2 TOTAL SCORE 0 09/13/2022 Social Connections Answer Date Recorded Frequency of Communication with Friends and Fami ly Not on file 12/12/2023 Financial Resource Strain Answer Date R ecorded Difficulty of Paying Living Expenses 3 12/11/2022 Difficulty of Paying Living Expenses Not on file 12/11/2022 Food Insecurity Answer Date Recorded Worried About Running Out of Food in the Last Ye ar 1 12/11/2022 Transportation Needs Answer Date Record ed Lack of Transportation (Medical) 1 12/11/2022 Housing Stability Answer Date Recorded Unable to Pay for Housing in the Last Year 1 12/11/2022 Sex and Gender Information Value Date Recorded Sex Assigned at Not on file Gender Identity Not on file Sexual Orientation Not on file Obstetrics History Para Term AB IAB SAB Ectopic Multiple Livin g Live Births 2 1 1 1 Date Outcome GA Total Labor Labor/2nd/3rd Weight Sex Delivery Anes PTL Leighann A1 A5 Name Cl in Term Last Filed Vital Signs Vital Sign Reading Time Taken Comments Blood Pressure 117/72 11/26/2023 2:49 PM PHYSICAL THERAPY AIDES TEACHER Pulse 74 11/26/2023 2:49 PM PHYSICAL THERAPY AIDES TEACHER Temperature 36.6 ??C (97.9 ??F) 11/26/2023 2:49 PM CS T Respiratory Rate 16 11/26/2023 2:49 PM PHYSICAL THERAPY AIDES TEACHER Oxygen Saturation 100% 11/26/2023 2:49 PM PHYSICAL THERAPY AIDES TEACHER Inhaled Oxygen Concentration - - Weight 102.8 kg (226 lb 9.6 oz) 11/26/2023 2:49 PM PHYSICAL THERAPY AIDES TEACHER Height 175.3 cm (5' 9) 11/13/2023 2:30 PM PHYSICAL THERAPY AIDES TEACHER Body Mass Index 33.46 11/13/2023 2:30 PM PHYSICAL THERAPY AIDES TEACHER Plan of Treatment Upcoming Encounters Date Type Department Care Team (Late st Contact Info) Description 04/14/2024 8:00 AM CDT Office Visit [facility] [address] [address] Shae Motley PA [address] [place] [address] 09/23/2024 9:00 AM PHYSICAL THERAPY AIDES TEACHER Appointment [facility] [address] [address] 09/23/2024 9:45 AM PHYSICAL THERAPY AIDES TEACHER Office Visit [facility] [address] [address] Nathalie Andrews MD [address] [address] Health Maintenance Due Date Last Done Comments Pneumococcal series for age 6-64 (1 of 2 - PCV) 1986 COVID-19 vaccine series (3 - Pfizer risk series) 05/03/2021 04/05/2021, 03/03/2021 Influenza for age 9-49 07/13/2023 , 08/21/2022, 08/09/2021, Additional history exists Depression screening for age 12+ 09/13/2023 09/13/2022, 09/13/2021, 08/09/2021, Additional history exists BMI (ht and wt on same day) for age 18+ 11/13/2024 11/13/2023, 10/22/2023, 10/09/2023, Additional history exists Pap test for age 21-65 09/07/2025 , 09/07/2020, 06/04/2015, Additional history exists Tetanus booster 11/28/2028 11/28/2018, 02/11, 08/12/2012, Additional history exists HIV for age 15-65 Completed 08/15/2011 Hepatitis C screening for ag e 18-79 Completed 08/15/2011 Tdap Completed 11/28/2018, 02/11, 08/12/2012, Additional history exists Procedures Procedure Name Priority Date/Time Associated Diagnosis Comments PATH TISSUE EXAM Today 11/07/2023 1:36 PM PHYSICAL THERAPY AIDES TEACHER REVISION TISSUE MARGINS BREAST Class E Urgent 11/07/2023 12:46 PM PHYSICAL THERAPY AIDES TEACHER Malignant neoplasm of left breast in female, estrogen receptor positive, unspecified site of breast (HC) URINE Preop 11/07/2023 11:16 AM PHYSICAL THERAPY AIDES TEACHER XR BREAST SPECIMEN LEFT COLIN 10/29/2023 1:18 PM PHYSICAL THERAPY AIDES TEACHER Malignant neoplasm of lower-outer quadrant of left breast of female, estrogen receptor positive (HC) PATH TISSUE EXAM Today 10/29/2023 11:4 7 AM PHYSICAL THERAPY AIDES TEACHER MSO AP SEND-OUT Timed 10/29/2023 11:47 AM PHYSICAL THERAPY AIDES TEACHER SUPRAGLOTTIC-LMA Routine 10/29/2023 11:2 8 AM PHYSICAL THERAPY AIDES TEACHER LUMPECTOMY BREAST WITH MAGNETIC SEED LOCALIZATION AND SENTINEL LYMPH NODE BIOPSY Elective 10/29/2023 11:01 AM PHYSICAL THERAPY AIDES TEACHER Malignant neoplasm of lower-outer quadrant of left breast of female, estrogen receptor positive (HC) URINE Preop 10/29/2023 8:40 AM PHYSICAL THERAPY AIDES TEACHER XR MAMMO POST LOCALIZATION LT COLIN 10/29/2023 8:27 AM PHYSICAL THERAPY AIDES TEACHER Malignant neoplasm of lower-outer quadrant of left breast of female, estrogen receptor positive (HC) NM INJ SENTINEL NODE BREAST LEFT COLIN 10/29/2023 8:27 AM PHYSICAL THERAPY AIDES TEACHER Malignant neoplasm of lower-outer quadrant of left breast of female, estrogen receptor positive (HC) US BREAST MAGNETIC SEED LOCALIZATION LEFT Routine 10/29/2023 8:23 AM PHYSICAL THERAPY AIDES TEACHER Malignant neoplasm of lower-outer quadrant of left breast of female, estrogen receptor positive (HC) CANCER GENETIC SEND OUT Routine 10/11/2023 Malignant neoplasm of lower-outer quadrant of left breast of female, estrogen receptor positive (HC) US BIOPSY BREAST NEEDLE W SHILO W GUIDE LEFT COLIN 10/02/2023 3:03 PM PHYSICAL THERAPY AIDES TEACHER Abnormal mammogram XR MAMMO POST CLIP PLCMT LT Routine 10/02/2023 3:02 PM PHYSICAL THERAPY AIDES TEACHER Abnormal mammogram PATH TISSUE EXAM Today 10/02/2023 2:50 PM PHYSICAL THERAPY AIDES TEACHER US BREAST UNILATERAL LEFT LIMITED COLIN 09/25/2023 3:06 PM PHYSICAL THERAPY AIDES TEACHER Abnormal mammogram XR MAMMO ELICIA UNI ADDL VIEWS LEFT COLIN 09/25/2023 2:56 PM PHYSICAL THERAPY AIDES TEACHER Abnormal mammogram XR MAMMO ELICIA BILAT SCREEN Routine 09/18/2023 1:58 PM PHYSICAL THERAPY AIDES TEACHER Encounter for screening mammogram for malignant neoplasm of breast from Last 3 Months Results * PATH TISSUE EXAM (11/07/2023 1:36 PM PHYSICAL THERAPY AIDES TEACHER) Only the most recent of3 resultswithin the time period is included. Case Report Pathology Report ?Case: [id number] ? Authorizing Provider: ??Nathalie Andrews MD ?? Collected: ? 11/07/2023 1336 ? Ordering Location: ? [facility] ?Received: ?11/07/2023 1353 ? Hospital ? Pathologist: ? Roslyn Arellano MD ? Specimen: ?Left Breast Excision, left breast new posterior excision. ??Double stitch at new ? posterior margin, short stitch at superior, long stitch at lateral ? 11/08/2023 12:39 PM PHYSICAL THERAPY AIDES TEACHER [facility] Final Diagnosis A) LEFT BREAST, NEW POSTERIOR MARGIN, EXCISION WITH MARGIN EVALUATION: 1. Benign breast tissue 2. Changes consistent with prior procedure 3. No atypia, in-situ, or invasive carcinoma identified 11/08/2023 12:39 PM PHYSICAL THERAPY AIDES TEACHER [facility] Clinical Information IDC and DCIS with positive margin on lumpectomy 11/08/2023 12:39 PM PHYSICAL THERAPY AIDES TEACHER [facility] Gross Description A) Received fresh labeled with the patient's name and left breast new posterior excision, is a 10 g, 5.0 (ML) by 3.3 (SI) by 1.6 (AP) cm yellow-pink fibrofatty breast fragment. ??There are multiple sutures attached for orientation: Double stitch marin new posterior margin, short stitch marin superior and long stitch marin lateral. ??The specimen is inked by the lab as follows: Anterior--Frio Posterior--Black Superior--Blue Inferior--Red Medial--Green Lateral--Yellow The specimen is serially sectioned from medial to lateral in 11 slices. ??The specimen is a yellow fatty center throughout with a small amount of pink breast tissue accounting for approximately 15% of the total volume. ??No mass lesions are identified grossly. ??The specimen is entirely sequentially submitted from medial to lateral in 11 cassettes. Time removed from patient: 1336 Time placed in formalin: 1408 Date removed and placed in formalin: 11/07/2023 Cold ischemic time < 60 minutes. The specimen was fixed in formalin for a minimum of 6 hours and not longer than 72 hours. TRS 11/07/2023 11/08/2023 12:39 PM [facility] ENTRAL LABORATORY Microscopic Description The final diagnosis is based on microscopic examination of appropriate sections of all specimens. 11/08/2023 12:39 PM PHYSICAL THERAPY AIDES TEACHER [facility] Additional Information Interpreted at [facility], Central Laboratory - [address], [place] [address] 11/08/2023 12:39 PM [facility] ENTRAL LABORATORY Tissue (Left Breast Excision) 11/07/2023 1:36 PM PHYSICAL THERAPY AIDES TEACHER 11/07/2023 1:53 PM PHYSICAL THERAPY AIDES TEACHER Nathalie Andrews MD PATHOLOGY/CYTOLOG Y [facility] [address] [place] [id number], [place] * Urine (11/07/2023 11:16 AM PHYSICAL THERAPY AIDES TEACHER) Only the most recent of2 resultswithin the time period is included. ,URIN E Negative Negative 11/07/2023 11:39 AM PHYSICAL THERAPY AIDES TEACHER [facility] TRAL LABORATORY Urine URINE SPECIMEN / Unknown Non-Blood / Unknown 11/07/2023 11:16 AM PHYSICAL THERAPY AIDES TEACHER 11/07/2023 11:26 AM PHYSICAL THERAPY AIDES TEACHER Ayde LOFTON URINE Performing Organization Address City/[facility]/ZIP Co de Phone Number [facility] [address] [place] [id number], [place] * XR BREAST SPECIMEN LEFT (10/29/2023 1:18 PM PHYSICAL THERAPY AIDES TEACHER) Anatomical Region Laterality Modality Breast Left N/A Mammography 10/29/2023 1:53 PM PHYSICAL THERAPY AIDES TEACHER Impressions 10/30/2023 11:38 AM PHYSICAL THERAPY AIDES TEACHER Localized lesion visualized. Results were immediately verbally reported to the operating room staff by the radiology department staff. ACR not applicable. Dictated by: Kaitlyn Mosqueda MD @10/29/2023 1:53:45 PM/jsb Narrative 10/30/2023 11:38 AM PHYSICAL THERAPY AIDES TEACHER For Patients: As a result of the Century Cures Act, medical imaging exams and procedure reports are released immediately into your electronic medical record. ??You may view this report before your referring provider. ?? If you have questions, please contact your health care provider. CLINICAL HISTORY: LEFT breast cancer. COMPARISON: Ultrasound-guided seed localization 10/29/2023. FINDINGS: Localized lesion is visualized within the specimen including the magnetic seed in the X marker clip. Nathalie Andrews MD MAMMO * MSO AP SEND-OUT (10/29/2023 11:47 AM PHYSICAL THERAPY AIDES TEACHER) Tissue TISSUE SPECIMEN / Unknown 10/29/2023 11:47 AM PHYSICAL THERAPY AIDES TEACHER 11/02/2023 10:31 AM PHYSICAL THERAPY AIDES TEACHER Nathalie Andrews MD LABORATORY [facility]-CENTRAL LABORATORY [address] [place] [id number], * HCHG MASK PR5 (10/29/2023 11:28 AM PHYSICAL THERAPY AIDES TEACHER) Narrative Inocencio Barone R [employer] [facility] - 10/29/2023 11:28 AM PHYSICAL THERAPY AIDES TEACHER Inocencio Barone [employer] [facility] ? 10/29/2023 11:28 AM Procedure: Supraglottic Patient location during procedure: OR Supraglottic Airway Properties Mask Ventilation: not attempted Type: unique Tube Size: 4 Insertion Attempts: 1 Placement Verification: auscultation and CO2 detection Assessment Assessment: atraumatic and dentition unchanged Dez Vidal MD ANESTHESIA PX NOTE O RDERABLES * XR MAMMO POST LOCALIZATION LT (10/29/2023 8:27 AM PHYSICAL THERAPY AIDES TEACHER) Anatomical Region Laterality Modality Breast Left Mammography Narrative 10/30/2023 11:38 AM PHYSICAL THERAPY AIDES TEACHER As a result of the Cures Act, medical imaging exams and procedure reports are released immediately into your electronic medical record. ??You may view this report before your referring provider. ??If you have questions, please contact your health care provider. LEFT BREAST POST-LOCALIZATION MAMMOGRAM MAGSEED PLACEMENT 10/29/2023 PLEASE SEE [id number] FOR REPORT OF LEFT BREAST MAGSEED LOCALIZATION OF SAME DAY. Nathalie Andrews MD MAMMO * NM INJ SENTINEL NODE BREAST LEFT (10/29/2023 8:27 AM PHYSICAL THERAPY AIDES TEACHER) Anatomical Region Laterality Modality Breast Left Ultrasound, Nucl ear Medicine, Other 10/29/2023 10:3 5 AM PHYSICAL THERAPY AIDES TEACHER Impressions 10/30/2023 12:03 PM PHYSICAL THERAPY AIDES TEACHER Injection for sentinel lymph node of the LEFT breast. Dictated by: Kaitlyn Mosqueda MD @10/29/2023 10:35:53 AM/CRL:jmr Narrative 10/30/2023 12:03 PM PHYSICAL THERAPY AIDES TEACHER For Patients: As a result of the Cures Act, medical imaging exams and procedure reports are released immediately into your electronic medical record. ??You may view this report before your referring provider. ?? If you have questions, please contact your health care provider. SENTINEL LYMPH NODE LOCALIZATION INJECTION, 10/29/2023 CLINICAL HISTORY: LEFT breast cancer. TECHNIQUE: With the patient supine, the periareolar LEFT breast was cleansed with alcohol. Next, 498 microcuries of technetium-99m tilmanocept in a volume of 1 cc was injected intradermal in the upper outer periareolar breast with a 25-gauge needle. The patient tolerated the procedure well and there were no immediate complications. Nathalie Andrews MD NM * US BREAST MAGNETIC SEED LOCALIZATION LEFT (10/29/2023 8:23 AM PHYSICAL THERAPY AIDES TEACHER) Anatomical Region Laterality Modality Breast Left Ultrasound, Othe r 10/29/2023 10:3 7 AM PHYSICAL THERAPY AIDES TEACHER Impressions 10/30/2023 12:00 PM PHYSICAL THERAPY AIDES TEACHER Successful breast magnetic seed localization. ACR not applicable. Dictated by: Kaitlyn Mosqueda MD @10/29/2023 10:37:26 AM/CRL:jmr Narrative 10/30/2023 12:00 PM PHYSICAL THERAPY AIDES TEACHER For Patients: As a result of the Cures Act, medical imaging exams and procedure reports are released immediately into your electronic medical record. ??You may view this report before your referring provider. ?? If you have questions, please contact your health care provider. BREAST MAGNETIC SEED LOCALIZATION USING ULTRASOUND GUIDANCE, 10/29/2023 CLINICAL HISTORY: LEFT breast cancer. LATERALITY: LEFT. LESION: 0.8 x 0.7 x 0.5 cm solid irregular mass containing the X-shaped marker. TECHNIQUE: The magnetic seed was placed using real-time ultrasound guidance with image documentation. Cranial-caudal and medial-lateral digital mammograms were obtained after seed placement. CONSENT and TIME OUT: The procedure, risks, and alternatives were explained to the patient and a consent was signed. [place] Protocol was followed including pre-procedure verification that relevant information/documentation was available, reviewed and properly matched to the patient; consent accurate and complete; and equipment and supplies available. Time Out was conducted just prior to starting procedure to verify the four required elements: patient identity, correct side/site marked (if applicable), procedure, relevant images/results properly labeled and displayed (if applicable). PROCEDURE: The skin was prepped with ChloraPrep and 3 cc of 1% lidocaine was injected for local anesthesia. The magnetic seed was deposited via an 18-gauge spinal needle within or near the targeted breast lesion using ultrasound guidance. The patient tolerated the procedure well. Cranial-caudal and medial-lateral digital mammographic views of the breast were obtained after seed placement. PROXIMITY OF SEED TO LESION: Magnetic seed is within the mass adjacent to the marker. Nathalie Andrews MD * CANCER GENETIC SEND OUT (10/11/2023) Blood BLOOD SPECIMEN / Unknown 10/11/2023 Geetha Renner MS, [facility] * US BIOPSY BREAST NEEDLE W SHILO W GUIDE LEFT (10/02/2023 3:03 PM PHYSICAL THERAPY AIDES TEACHER) Anatomical Region Laterality Modality Breast Left Left Ultrasound, Othe r 10/02/2023 3:36 PM PHYSICAL THERAPY AIDES TEACHER Addenda Addendum by Kaitlyn Mosqueda MD on 10/14/2023 9:28 AM PHYSICAL THERAPY AIDES TEACHER For Patients: As a result of the 21st Century Cures Act, medical imaging exams and procedure reports are released immediately into your electronic medical record. ??You may view this report before your referring provider. ?? If you have questions, please contact your health care provider. ??ADDENDUM ? ADDENDUM ? ADDENDUM Pathologic Findings: LEFT BREAST, 4 O'CLOCK, 1 CM FROM NIPPLE, ULTRASOUND-GUIDED CORE BIOPSY: Invasive ductal carcinoma RadPath Correlation: Imaging reviewed by Dr. Vernon Tompkins and Dr. Dee. ?? Pathologic findings are concordant with radiologic findings. Recommendations: Surgical consultation is recommended. ?? Notification: I called the patient with findings and recommendations. A member of the [facility] cancer care coordination team will contact the patient to schedule surgical consultation. Michelle Madera, MSN, RN, SHELL SIEVE OPERATOR [email or web address] CMB/rcd Impressions 10/03/2023 12:19 PM PHYSICAL THERAPY AIDES TEACHER Ultrasound-guided breast biopsy. When the pathology report is available, an addendum to this report will be made. ACR not applicable Dictated by: Kaitlyn Mosqueda MD @10/02/2023 3:36:16 PM/jsb Narrative 10/03/2023 12:19 PM PHYSICAL THERAPY AIDES TEACHER For Patients: As a result of the Cures Act, medical imaging exams and procedure reports are released immediately into your electronic medical record. ??You may view this report before your referring provider. ?? If you have questions, please contact your health care provider. ULTRASOUND-GUIDED BREAST BIOPSY AND POST-BIOPSY DIGITAL MAMMOGRAM FOR BIOPSY MARKER PLACEMENT, 10/02/2023 CLINICAL HISTORY: Suspicious mass LEFT breast. COMPARISON STUDIES: Ultrasound 10/01/2023. TECHNIQUE: Real-time ultrasound with image documentation was used for targeting the breast lesion. Core biopsy specimens were obtained using an automated gun with a 14-gauge biopsy needle. Post-biopsy CC and ML digital mammograms were obtained to document position of the biopsy marker. CONSENT and TIME OUT: The procedure, risks, and alternatives were explained to the patient and a consent was signed. [place] Protocol was followed including pre-procedure verification that relevant information/documentation was available, reviewed and properly matched to the patient; consent accurate and complete; and equipment and supplies available. Time Out was conducted just prior to starting procedure to verify the four required elements: patient identity, correct side/site marked (if applicable), procedure, relevant images/results properly labeled and displayed (if applicable). PROCEDURE: The patient was positioned supine on the ultrasound table. The breast was prepped with Betadine or ChloraPrep. 3 cc of 1% lidocaine was injected for superficial anesthesia and 5 cc of 1% lidocaine with epinephrine was injected for deeper anesthesia. Core samples were obtained. A sterile metal biopsy clip was placed percutaneously to shilo the lesion position within the breast. The specimens were placed in 10% formalin and sent to the pathology department. Pressure was held on the biopsy site until all bleeding subsided. The skin incision was closed with Steri-Strips. An ice pack was positioned over the biopsy site. Post-biopsy instructions were reviewed with the patient, and a written copy was given to her. LATERALITY: LEFT. LESION: Solid irregular mass 4 o'clock 1 cm from the nipple. Measurement 0.8 x 0.7 x 0.5 cm. SUSPICION FOR MALIGNANCY: High. NUMBER OF SAMPLES: 4. BIOPSY CLIP SHAPE: X. PROXIMITY OF CLIP TO TARGET: On target. Joanna Bran DO US * XR MAMMO POST CLIP PLCMT LT (10/02/2023 3:02 PM PHYSICAL THERAPY AIDES TEACHER) Anatomical Region Laterality Modality BREASTS N/A Mammography Narrative 10/03/2023 12:17 PM PHYSICAL THERAPY AIDES TEACHER As a result of the Century Cures Act, medical imaging exams and procedure reports are released immediately into your electronic medical record. ??You may view this report before your referring provider. ??If you have questions, please contact your health care provider. LEFT BREAST POST-BIOPSY MAMMOGRAM CLIP PLACEMENT 10/02/2023 PLEASE SEE [id number] FOR REPORT OF LEFT BREAST BIOPSY OF SAME DAY. Joanna Krauser DO MAMMO * US BREAST UNILATERAL LEFT LIMITED (09/25/2023 3:06 PM PHYSICAL THERAPY AIDES TEACHER) Anatomical Region Laterality Modality BREASTS, Breast Left, Breast Right Left Ultrasound Narrative 09/26/2023 6:45 AM PHYSICAL THERAPY AIDES TEACHER For Patients: As a result of the Cures Act, medical imaging exams and procedure reports are released immediately into your electronic medical record. ??You may view this report before your referring provider. ?? If you have questions, please contact your health care provider. LEFT BREAST ULTRASOUND, 09/25/2023 PLEASE SEE [id number] FOR DIGITAL LEFT MAMMOGRAM SAME DAY. Joanna Bran DO US * XR MAMMO ELICIA UNI ADDL VIEWS LEFT (09/25/2023 2:56 PM PHYSICAL THERAPY AIDES TEACHER) Anatomical Region Laterality Modality BREASTS, Breast Left Mammography 09/25/2023 3:25 PM PHYSICAL THERAPY AIDES TEACHER Impressions 09/26/2023 6:45 AM PHYSICAL THERAPY AIDES TEACHER Indeterminate angular hypoechoic structure anterior depth LEFT breast 4 o'clock 1 cm from the nipple measuring 8 millimeters. RECOMMENDATIONS: Ultrasound-guided core needle biopsy. Results and recommendations discussed with the patient. BI-RADS Category 4: Suspicious Dictated by: Moncho Earl MD @09/25/2023 3:25:31 PM / Edil PATIENTS: You will also receive a letter with your examination results in an easy to read format. ??If you have questions about your results, please contact your referring provider. Narrative 09/26/2023 6:45 AM PHYSICAL THERAPY AIDES TEACHER For Patients: As a result of the Cures Act, medical imaging exams and procedure reports are released immediately into your electronic medical record. ??You may view this report before your referring provider. ?? If you have questions, please contact your health care provider. ADDITIONAL VIEWS LEFT DIGITAL MAMMOGRAM USING TOMOSYNTHESIS, 09/25/2023 LEFT BREAST ULTRASOUND, 09/25/2023 CLINICAL HISTORY: LEFT breast mass/asymmetry. COMPARISON: 09/18/2023. TECHNIQUE: Digital LEFT mammogram in two projections. ??Tomosynthesis utilized. Real-time ultrasound imaging of LEFT breast with imaging documentation. BREAST COMPOSITION: The breast is heterogeneously dense, which may obscure small masses. FINDINGS: 3D spot compression CC/MLO LEFT breast mammogram images submitted. Persistent nodular density within the lateral LEFT breast. No adenopathy. Targeted LEFT breast ultrasound performed. A 4 o'clock 1 cm from the nipple, there is an angular hypoechoic structure measuring 7 x 5 x 8 millimeters. This may be taller than wide. Fibrocystic change also noted at 3 o'clock 4 cm from the nipple measuring 1.4 x 0.7 x 0.8 cm. Joanna Bran DO MAMMO * XR MAMMO ELICIA BILAT SCREEN (09/18/2023 1:58 PM PHYSICAL THERAPY AIDES TEACHER) Anatomical Region Laterality Modality BREASTS, Breast Left, Breast Right Bilateral Mammography 09/18/2023 4:02 PM PHYSICAL THERAPY AIDES TEACHER Impressions 09/19/2023 1:54 PM PHYSICAL THERAPY AIDES TEACHER LEFT breast asymmetry/mass. RECOMMENDATIONS: Additional mammographic views of the LEFT breast including 3D spot compression CC/MLO. LEFT breast ultrasound may also be required. A member of the breast health care team will contact the patient to schedule the required additional imaging appointment(s). BI-RADS Category 0: Incomplete: Need Additional Imaging Evaluation and/or Prior Mammograms for Comparison. Dictated by: Moncho Earl MD @09/18/2023 4:02:26 PM/rena PATIENTS: You will also receive a letter with your examination results in an easy to read format. ??If you have questions about your results, please contact your referring provider. Narrative 09/19/2023 1:54 PM PHYSICAL THERAPY AIDES TEACHER For Patients: As a result of the Cures Act, medical imaging exams and procedure reports are released immediately into your electronic medical record. ??You may view this report before your referring provider. ?? If you have questions, please contact your health care provider. BILATERAL DIGITAL SCREENING MAMMOGRAM WITH COMPUTER-AIDED DETECTION AND TOMOSYNTHESIS 09/18/2023 CLINICAL HISTORY: Routine screening exam. COMPARISON: 09/13/2022, 09/13/2021, 09/07/2020. TECHNIQUE: Digital mammogram in CC and MLO projections including computer-aided detection (CAD). ??Tomosynthesis was used. BREAST COMPOSITION: The breasts are heterogeneously dense, which may obscure small masses. ?? FINDINGS: RIGHT Breast: No suspicious findings. LEFT Breast: Focal asymmetric density within the lower outer quadrant 4 cm from the nipple. Joanna Bran DO MAMMO from Last 3 Months Advance Directives Latest Code Status on File Code Status Date Activated Date Inactivated Comments Full Code 11/07/2023 11:17 AM 11/07/2023 5:48 PM Question Answer Comments Code Status Discussion: Reviewed Preferences Code Status History Code Status Date Activated Date Inactivated Comments Full Code 10/29/2023 8:31 AM 10/29/2023 4:47 PM Question Answer Comments Code Status Discussion: Reviewed Preferences Full Code 01/23/2020 6:45 AM 01/23/2020 2:11 PM Full Code 01/23/2020 6:45 AM 01/23/2020 6:45 AM Full Code 01/09/2020 8:55 AM 01/09/2020 5:18 PM Question Answer Comments Code Status Discussion: Not Discussed Care Teams Client Care Specialist Relationship Specialty Start Date End Date [place] [address] PCP - General Family Practice 08/31/23 Melita Chilel, OSCAR [address] [place] [address] Nurse Navigator - Oncology Registered Nurse 10/03/23 Nathalie Andrews MD [address] [place] [address] Surgery - General 10/03/23 Petrona Shannon, OSCAR [address] [place] [address] Nurse Navigator - Oncology Registered Nurse 11/02/23 Zeny Kaur MD [address] [place] [address] Medical Oncologist Oncology 11/22/23 Karen Leon, GROCERY PACKER [address] [place] [address] Nurse Practitioner Oncology 11/22/23 Nixon Felton LSW [address] [place], [place] [phone] For[facility] Helper Oncology 11/22/23
--- OUTSIDE RECORDS SUMMARY | 2023-12-17 08:26 | XMS_ITS | Encounter Summary ---
Author Name Unknown Organization [facility] Address [address] [place] [address] Care Team Providers Care Core Piler Name Role Phone Unavailable Primary Care Provider Unavailabl e Reason for Referral * Specialty Diagnoses / Procedures Referred By Lukas will Referred To Contact Bhumika García APRN, C.N.PBeulah, D.N.P. [address] [place] [phone] [facility] Referral ID Status Reason Start Date Expiration Date Visits Re quested Visits Authorized CLEARANCE FOREMAN Encounter Details Date Type Department Care Team (Latest Contact Info) Description 12/12/2023 8:28 AM LINE CLEARANCE FOREMAN - 12/12/2023 9:25 AM LINE CLEARANCE FOREMAN Hospital Encounter Department of Radiation Oncology in [place], [place] [address] [place] [phone] Ronny Merritt M.D. [address] [place] [phone] Angelica Salinas R.N. [address] [place] [phone] Malignant Neoplasm Of Breast Lower Outer Quadrant Female Left (HCC) Discharge Disposition: Home or Self Care Social History Tobacco Use Types Packs/Day Years Used Date Smoking Tobacco: Former Cigarettes 0.3 2 003 - 2010 Smokeless Tobacco: Never Alcohol Use Standard Drinks/Week Comments Not Currently 0 (1 standard drink = 0.6 oz pur e alcohol) [facility] Utilities Answer Date Recorded In [...] your living situation today? [facility] live 11/25/2023 Sex and Gender Information Value Date Recorded Sex Assigned at Female 11/25/2023 8:25 PM LINE CLEARANCE FOREMAN Gender Identity Female 11/25/2023 8:25 PM LINE CLEARANCE FOREMAN Sexual Orientation Straight 11/25/2023 8: 25 PM LINE CLEARANCE FOREMAN documented as of this encounter Medications at [...] 0 11/26/2023 documented as of this encounter Progress Notes * Angelica Salinas R.N. - 12/12/2023 8:45 AM CST Patient was educated on side effects of radiation therapy. Their questions were answered to the best of my ability. The patient was encouraged to contact the team at any point, with questions or concerns. CLEARANCE FOREMAN documented in this encounter Plan of Treatment Upcoming Encounters Date Type Department Care Team (Late st Contact Info) Description 12/18/2023 8:30 AM LINE CLEARANCE FOREMAN Appointment Department of Radiation Oncology in [address] [phone] Ronny Merritt M.D. [address] [place] [address] 12/19/2023 8:30 AM LINE CLEARANCE FOREMAN Appointment Department of Radiation Oncology in [address] [phone] Ronny Merritt M.D. [address] [place] [phone] 12/19/2023 9:00 AM LINE CLEARANCE FOREMAN Appointment Department of Radiation Oncology in [address] [phone] Ronny Merritt M.D. [address] [place] [phone] 12/20/2023 8:30 AM LINE CLEARANCE FOREMAN Appointment Department of Radiation Oncology in [address] [phone] Ronny Merritt M.D. [address] [place] [phone] 12/21/2023 8:30 AM LINE CLEARANCE FOREMAN Appointment Department of Radiation Oncology in [address] [phone] Ronny Merritt M.D. [address] [place] [phone] 12/24/2023 9:45 AM LINE CLEARANCE FOREMAN Appointment Department of Radiation Oncology in [address] [phone] Ronny Merritt M.D. [address] [place] [phone] 12/25/2023 9:45 AM LINE CLEARANCE FOREMAN Appointment Department of Radiation Oncology in [address] [phone] Ronny Merritt M.D. [address] [place] [phone] 12/26/2023 9:45 AM LINE CLEARANCE FOREMAN Appointment Department of Radiation Oncology in [address] [phone] Ronny Merritt M.D. [address] [place] [phone] 12/26/2023 10:00 AM LINE CLEARANCE FOREMAN Appointment Department of Radiation Oncology in [address] [phone] Ronny Merritt M.D. [address] [place] [phone] 12/27/2023 9:45 AM LINE CLEARANCE FOREMAN Appointment Department of Radiation Oncology in [address] [phone] Ronny Merritt M.D. [address] [place] [phone] 12/28/2023 9:45 AM LINE CLEARANCE FOREMAN Appointment Department of Radiation Oncology in [address] [phone] Ronny Merritt M.D. [address] [place] [phone] 12/31/2023 8:30 AM LINE CLEARANCE FOREMAN Appointment Department of Radiation Oncology in [address] [phone] Ronny Merritt M.D. [address] [place] [phone] 01/01/2024 8:30 AM LINE CLEARANCE FOREMAN Appointment Department of Radiation Oncology in [address] [phone] Ronny Merritt M.D. [address] [place] [phone] 01/02/2024 8:30 AM LINE CLEARANCE FOREMAN Appointment Department of Radiation Oncology in [place], [place] [address] [place] [phone] Ronny Merritt M.D. [address] [place] [phone] 01/02/2024 8:45 AM LINE CLEARANCE FOREMAN Appointment Department of Radiation Oncology in [address] [address] Ronny Merritt M.D. [address] [place] [phone] 01/03/2024 8:30 AM LINE CLEARANCE FOREMAN Appointment Department of Radiation Oncology in [address] [phone] Ronny Merritt M.D. [address] [place] [phone] 01/04/2024 7:30 AM LINE CLEARANCE FOREMAN Appointment Department of Radiation Oncology in [address] [phone] Ronny Merritt M.D. [address] [place] [phone] Scheduled Referrals Name Type Priority Associated Diagnoses Order Schedule Radiation Oncology - Nurse education visit (clinic) Outpatient Referral Routine Malignant Neoplasm Of Breast Lower Outer Quadrant Female Left (HCC) Once for 1 Occurrences starting 12/12/2023 until 12/12/2023 documented as of this encounter Visit Diagnoses Diagnosis Malignant Neoplasm Of Breast Lower Outer Quadrant Female Left (HCC) documented in this encounter
--- OUTSIDE RECORDS SUMMARY | 2023-12-17 08:26 | XMS_ITS | Encounter Summary ---
Author Name Unknown Organization [facility] Address [address] [place] [address] Care Team Providers Care Computer Technical Specialist Name Role Phone Unavailable Primary Care Provider Unavailabl e Reason for Referral * Radiation Therapy (Routine) - Authorized Specialty Diagnoses / Procedures Referred By Contac t Referred To Contact Diagnoses Malignant Neoplasm Of Breast Lower Outer Quadrant Female Left (HCC) Procedures Management Visit Ronny Merritt M.D. [address] [place] [address] [facility] Region Referral ID Status Reason Start Date Expiration Date V isits Requested Visits Authorized [id number] Authorized 11/21/2023 11/20/2024 10 10 HOUSE DELIVERY DRIVER Reason for Visit * Radiation Therapy (Routine) - Authorized Specialty Diagnoses / Procedures Referred By Contac t Referred To Contact Diagnoses Malignant Neoplasm Of Breast Lower Outer Quadrant Female Left (HCC) Procedures Management Visit Ronny Merritt M.D. [address] [place] [address] [facility] Region Referral ID Status Reason Start Date Expiration Date V isits Requested Visits Authorized [id number] Authorized 11/21/2023 11/20/2024 10 10 Encounter Details Date Type Department Care Team (Latest Contact Info) Description 12/12/2023 7:59 AM WAREHOUSE DELIVERY DRIVER - 12/12/2023 8:27 AM WAREHOUSE DELIVERY DRIVER Hospital Encounter Department of Radiation Oncology in [place], [place] [address] [place] [phone] Ronny Merritt M.D. [address] [place] [address] Malignant Neoplasm Of Breast Lower Outer Quadrant Female Left (HCC) Social History Tobacco Use Types Packs/Day Years Used Date Smoking Tobacco: Former Cigarettes 0.3 2 003 - 2010 Smokeless Tobacco: Never Alcohol Use Standard Drinks/Week Comments Not Currently 0 (1 standard drink = 0.6 oz pur e alcohol) [facility] Utilities Answer Date Recorded In the past 12 months has th e [email or web address], gas, oil, or water [employer] threatened to shut off services in your [...] living situation today? I have a [facility] place to live 11/25/2023 Sex and Gender Information Value Date Recorded Sex Assigned at Female 11/25/2023 8:25 PM WAREHOUSE DELIVERY DRIVER Gender Identity Female 11/25/2023 8:25 PM WAREHOUSE DELIVERY DRIVER Sexual Orientation Straight 11/25/2023 8: 25 PM WAREHOUSE DELIVERY DRIVER documented as of this encounter Last Filed Vital Signs Vital Sign Reading Time Taken Comments Blood Pressure - - Pulse - - Temperature 36.7 ??C (98 ??F) 12/12/2023 8:17 AM WAREHOUSE DELIVERY DRIVER Respiratory Rate - - Oxygen Saturation - - Inhaled Oxygen Concentration - - Weight 101 kg (223 lb 5.2 oz) 12/12/2023 8:17 AM WAREHOUSE DELIVERY DRIVER Height - - Body Mass Index - - documented in this encounter Medications at Time of Discharge [...] as of this encounter Progress Notes * Ronny Merritt M.D. - 12/12/2023 8:30 AM CST SUBJECTIVE CHIEF COMPLAINT/REASON FOR VISIT Evaluation for side effects while receiving radiation treatment for 1. Malignant Neoplasm Of Breast Lower Outer Quadrant Female Left (HCC) SUPERVISED BY: Ronny Merritt M.D. ([id number]) HISTORY OF PRESENT ILLNESS Mrs. Fiordaliza Doe is a 43 y.o. 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 She was treated with a left breast lumpectomy and sentinel lymph node biopsy by Dr. Andrews on October 29, 2023. She saw Dr. Kaur on November 26, 2023, and she recommended adjuvant endocrine therapy (Tamoxifen) with no chemotherapy. She is now undergoing hypofractionated whole breast radiotherapy with a boost to the lumpectomy cavity. Treatment Course: 1xBreast Plan ID Fractions Dose / Fraction (cGy) Dose Treated (cGy) Dose Planned (cGy) First Treatment Last Treatment Elapsed Days [id number] 12/10/2023 12/12/2023 2 Course Summary 12/10/2023 12/12/2023 2 The patient was seen and examined today with Dr. Merritt. The patient reports to be feeling well overall. She notes mild discomfort to her left axilla. She takes Tylenol or Ibuprofen occasionally. She is applying Mometasone cream twice daily as well as lotion. She denies any new symptoms or concerns. PATIENT REPORTED SYMPTOM SCREEN: FATIGUE (Scale: 0 = no fatigue; 10 = worst fatigue you can imagine): 4 PAIN (Scale: 0 = no pain; 10 = worst pain you can imagine): 2 OVERALL QUALITY OF LIFE (Scale: 0 = as bad as can be; 10 = as good as can be): 10 OBJECTIVE Temp 36.7 ??C (Temporal) Wt 101 kg PHYSICAL EXAMINATION General: Alert and oriented, in no apparent distress. 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 Discussed with patient that she should continue to apply Mometasone twice daily and for two weeks post radiation treatment. Patient should also apply lotion 2-3 times daily and should wait 30 minutes in between Mometasone and lotion application. Patient education visit also completed at this time. She will continue with radiation treatment as planned. She will contact our care team with any questions or concerns. Signed by: Angelica Salinas R.N. 12/12/2023 8:18 AM WAREHOUSE DELIVERY DRIVER I saw and evaluated the patient and participated in the vides portions of the service. I reviewed thedocumentation of Angelica Salinas R.N. and agree with the findings and plan. The patient appears well on exam. She is tolerating treatment well. She will continue with treatment as planned. Signed by: Ronny Merritt M.D. 12/12/2023 9:51 AM WAREHOUSE DELIVERY DRIVER [facility] [address] [place] [id number] HOUSE DELIVERY DRIVER documented in this encounter Plan of Treatment Upcoming Encounters Date Type Department Care Team (Late st Contact Info) Description 12/18/2023 8:30 AM WAREHOUSE DELIVERY DRIVER Appointment Department of Radiation Oncology in [address] [address] Ronny Merritt M.D. [address] [place] [phone] 12/19/2023 8:30 AM WAREHOUSE DELIVERY DRIVER Appointment Department of Radiation Oncology in [address] [address] Ronny Merritt M.D. [address] [place] [phone] 12/19/2023 9:00 AM WAREHOUSE DELIVERY DRIVER Appointment Department of Radiation Oncology in [address] [address] Ronny Merritt M.D. [address] [place] [phone] 12/20/2023 8:30 AM WAREHOUSE DELIVERY DRIVER Appointment Department of Radiation Oncology in [address] [address] Ronny Merritt M.D. [address] [place] [phone] 12/21/2023 8:30 AM WAREHOUSE DELIVERY DRIVER Appointment Department of Radiation Oncology in [address] [address] Ronny Merritt M.D. [address] [place] [phone] 12/24/2023 9:45 AM WAREHOUSE DELIVERY DRIVER Appointment Department of Radiation Oncology in [address] [address] Ronny Merritt M.D. [address] [place] [phone] 12/25/2023 9:45 AM WAREHOUSE DELIVERY DRIVER Appointment Department of Radiation Oncology in [address] [address] Ronny Merritt M.D. [address] [place] [phone] 12/26/2023 9:45 AM WAREHOUSE DELIVERY DRIVER Appointment Department of Radiation Oncology in [address] [address] Ronny Merritt M.D. [address] [place] [phone] 12/26/2023 10:00 AM WAREHOUSE DELIVERY DRIVER Appointment Department of Radiation Oncology in [place] [id number] [place] [phone] Ronny Merritt M.D. [address] [place] [phone] 12/27/2023 9:45 AM WAREHOUSE DELIVERY DRIVER Appointment Department of Radiation Oncology in [address] [address] Ronny Merritt M.D. [address] [place] [phone] 12/28/2023 9:45 AM WAREHOUSE DELIVERY DRIVER Appointment Department of Radiation Oncology in [address] [phone] Ronny Merritt M.D. [address] [place] [phone] 12/31/2023 8:30 AM WAREHOUSE DELIVERY DRIVER Appointment Department of Radiation Oncology in [address] [address] Ronny Merritt M.D. [address] [place] [phone] 01/01/2024 8:30 AM WAREHOUSE DELIVERY DRIVER Appointment Department of Radiation Oncology in [address] [address] Ronny Merritt M.D. [address] [place] [phone] 01/02/2024 8:30 AM WAREHOUSE DELIVERY DRIVER Appointment Department of Radiation Oncology in [address] [address] Ronny Merritt M.D. [address] [place] [phone] 01/02/2024 8:45 AM WAREHOUSE DELIVERY DRIVER Appointment Department of Radiation Oncology in [place], [place] [address] [place] [phone] Ronny Merritt M.D. [address] [place] [address] 01/03/2024 8:30 AM WAREHOUSE DELIVERY DRIVER Appointment Department of Radiation Oncology in [place], [place] [address] [place] [address] Ronny Merritt M.D. [address] [place] [phone] 01/04/2024 7:30 AM WAREHOUSE DELIVERY DRIVER Appointment Department of Radiation Oncology in [place], [place] [address] [place] [address] Ronny Merritt M.D. [address] [place] [address] Scheduled Orders Name Type Priority Associated Diagnoses Orde r Schedule Management Visit Radiation Oncology Routine Malignant Neoplasm Of Breast Lower Outer Quadrant Female Left (HCC) Once for 1 Occurrences starting 12/12/2023 until 12/12/2023 documented as of this encounter Visit Diagnoses Diagnosis Malignant Neoplasm Of Breast Lower Outer Quadrant Female Left (HCC) documented in this encounter
--- OUTSIDE RECORDS SUMMARY | 2023-12-17 08:26 | XMS_ITS | Encounter Summary ---
Author Name Unknown Organization [facility] Address [address] [place] [id number] Care Team Providers Care Trackmobile Operator Name Role Phone Unavailable Primary Care Provider Unavailabl e Reason for Visit * Radiation Therapy (Routine) - Authorized Specialty Diagnoses / Procedures Referred By Contac t Referred To Contact Diagnoses Malignant Neoplasm Of Breast Lower Outer Quadrant Female Left (HCC) Procedures Prior Auth Rad Tx [place] RADTN [place] DEL >=1 MEV COMPLEX 3D Ronny Merritt M.D. [address] [place] [phone] [facility] Referral ID Status Reason Start Date Expiration Date V isits Requested Visits Authorized [id number] Authorized 12/10/2023 11/20/2024 19 19 Encounter Details Date Type Department Care Team (Late st Contact Info) Description 12/11/2023 9:24 AM [facility] Hospital Encounter Department of Radiation Oncology in [place], [place] [address] [place] [address] Ronny Merritt M.D. [address] [place] [phone] Social History Tobacco Use Types Packs/Day Years Used Date Smoking Tobacco: Former Cigarettes 0.3 2 003 - 2010 Smokeless Tobacco: Never Alcohol Use Standard Drinks/Week Comments Not Currently 0 (1 standard drink = 0.6 oz pur e alcohol) [facility] Utilities Answer Date Recorded In the [...] your living situation today? I have a [facility] place to live 11/25/2023 Sex and Gender Information Value Date Recorded Sex Assigned at Female 11/25/2023 8:25 PM STEEL HANGER Gender Identity Female 11/25/2023 8:25 PM STEEL HANGER Sexual Orientation Straight 11/25/2023 8: 25 PM STEEL HANGER documented as of this encounter Plan of Treatment Upcoming Encounters Date Type Department Care Team (Late st Contact Info) Description 12/18/2023 8:30 AM STEEL HANGER Appointment Department of Radiation Oncology in [place], [place] [address] [place] [address] Ronny Merritt M.D. [address] [place] [address] 12/19/2023 8:30 AM STEEL HANGER Appointment Department of Radiation Oncology in [address] [phone] Ronny Merritt M.D. [address] [place] [phone] 12/19/2023 9:00 AM STEEL HANGER Appointment Department of Radiation Oncology in [address] [address] Ronny Merritt M.D. [address] [place] [phone] 12/20/2023 8:30 AM STEEL HANGER Appointment Department of Radiation Oncology in [address] [address] Ronny Merritt M.D. [address] [place] [phone] 12/21/2023 8:30 AM STEEL HANGER Appointment Department of Radiation Oncology in [address] [address] Ronny Merritt M.D. [address] [place] [phone] 12/24/2023 9:45 AM STEEL HANGER Appointment Department of Radiation Oncology in [address] [address] Ronny Merritt M.D. [address] [place] [phone] 12/25/2023 9:45 AM STEEL HANGER Appointment Department of Radiation Oncology in [address] [address] Ronny Merritt M.D. [address] [place] [phone] 12/26/2023 9:45 AM STEEL HANGER Appointment Department of Radiation Oncology in [address] [address] Ronny Merritt M.D. [address] [place] [phone] 12/26/2023 10:00 AM STEEL HANGER Appointment Department of Radiation Oncology in [address] [address] Ronny Merritt M.D. [address] [place] [phone] 12/27/2023 9:45 AM STEEL HANGER Appointment Department of Radiation Oncology in [address] [address] Ronny Merritt M.D. [address] [place] [phone] 12/28/2023 9:45 AM STEEL HANGER Appointment Department of Radiation Oncology in [address] [address] Ronny Merritt M.D. [address] [place] [phone] 12/31/2023 8:30 AM STEEL HANGER Appointment Department of Radiation Oncology in [address] [address] Ronny Merritt M.D. [address] [place] [phone] 01/01/2024 8:30 AM STEEL HANGER Appointment Department of Radiation Oncology in [address] [address] Ronny Merritt M.D. [address] [place] [phone] 01/02/2024 8:30 AM STEEL HANGER Appointment Department of Radiation Oncology in [place], [place] [address] [place] [address] Ronny Merritt M.D. [address] [place] [phone] 01/02/2024 8:45 AM STEEL HANGER Appointment Department of Radiation Oncology in [place], [place] [address] [place] [phone] Ronny Merritt M.D. [address] [place] [phone] 01/03/2024 8:30 AM STEEL HANGER Appointment Department of Radiation Oncology in [place], [place] [address] [place] [address] Ronny Merritt M.D. [address] [place] [phone] 01/04/2024 7:30 AM STEEL HANGER Appointment Department of Radiation Oncology in [address] [address] Ronny Merritt M.D. [address] [place] [phone] documented as of this encounter Visit Diagnoses Not on filedocumented in this encounter
--- OUTSIDE RECORDS SUMMARY | 2023-12-17 08:26 | XMS_ITS | Encounter Summary ---
Author Name Unknown Organization [facility] Address [address] [place] [address] Care Team Providers Care System Dispatcher Name Role Phone Unavailable Primary Care Provider Unavailabl e Reason for Visit * Appointment Request (Routine) - Closed Specialty Diagnoses / Procedures Referred By Contac t Referred To Contact Radiation Oncology Diagnoses Malignant Neoplasm Of Breast Lower Outer Quadrant Female Left (HCC) Nathalie Andrews M.D. [address] [place] [phone] Referral ID Status Reason Start Date Expiration Date Visits Re quested Visits Authorized [id number] Closed 10/12/2023 10/11/2024 1 1 Encounter Details Date Type Department Care Team (Latest Contact Info) Description 11/30/2023 8:28 AM REGIONAL BRANCH MANAGER - 11/30/2023 9:59 AM [facility] Encounter Department of Radiation Oncology in [place], [place] [address] [place] [phone] Ronny Merritt M.D. [address] [place] [address] Malignant Neoplasm Of Breast Lower Outer Quadrant Female Left (HCC) (Primary Dx) Social History Tobacco Use Types Packs/Day Years Used Date Smoking Tobacco: Former Cigarettes 0.3 2 - 2010 Smokeless Tobacco: Never Tobacco Cessation:Counseling Given: Not Answered Alcohol Use Standard Drinks/Week Comments Not Currently 0 (1 standard drink = 0.6 oz pur e alcohol) [facility] Utilities Answer Date Recorded In the past 12 months has [employer], [employer], oil, or water [employer] threatened to shut off services in your [...] Date Recorded Employment status 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 I have a [facility] place to live 11/25/2023 Sex and Gender Information Value Date Recorded Sex Assigned at Female 11/25/2023 8:25 PM REGIONAL BRANCH MANAGER Gender Identity Female 11/25/2023 8:25 PM REGIONAL BRANCH MANAGER Sexual Orientation Straight 11/25/2023 8: 25 PM REGIONAL BRANCH MANAGER documented as of this encounter Last Filed Vital Signs Vital Sign Reading Time Taken Comments Blood Pressure 113/68 11/30/2023 8:52 AM REGIONAL BRANCH MANAGER Pulse 84 11/30/2023 8:52 AM REGIONAL BRANCH MANAGER Temperature 37 ??C (98.6 ??F) 11/30/2023 8:52 AM REGIONAL BRANCH MANAGER Respiratory Rate - - Oxygen Saturation - - Inhaled Oxygen Concentration - - Weight 99.6 kg (219 lb 9.3 oz) 11/30/2023 8:52 A M REGIONAL BRANCH MANAGER Height - - Body Mass Index - [...] EVERY DAY FOR 5 DAYS 0 09/07/2023 multivitamin tablet Take 1 tablet by mouth daily. 0 06/03/2019 tamoxifen (NOLVADEX) 20 mg tablet Take 1 tablet by mouth daily. 0 11/26/2023 documented as of this encounter Consult Notes * Bhumika García APRN, C.N.P., D.N.P. - 11/30/2023 9:00 AM CST SUBJECTIVE REQUESTING PROVIDER Nathalie Andrews M.D. REASON FOR CONSULT 1. Malignant Neoplasm Of Breast Lower Outer Quadrant Female Left (HCC) SUPERVISED BY: Ronny Merritt M.D. ([phone]) HISTORY OF PRESENT ILLNESS Mrs. Fiordaliza Doe is a 43 y.o. female with invasive ductal carcinoma of the left breast. Shepresents today for an opinion regarding the role of radiation therapy in the management of her disease. Her oncologic history is as follows: Oncology History Malignant Neoplasm Of Breast Lower Outer Quadrant Female Left (HCC) 09/18/2023 Critical Imaging Bilateral breast screening mammogram FINDINGS: RIGHT Breast: No suspicious findings. LEFT Breast: Focal asymmetric density within the lower outer quadrant 4 cm from the nipple. 09/25/2023 Critical Imaging Focused left breast diagnostic mammogram and focused ultrasound Indeterminate angular hypoechoic structure anterior depth LEFT breast 4 o'clock 1 cm from the nipple measuring 8 millimeters. Targeted LEFT breast ultrasound performed. At 4 o'clock 1 cm from the nipple, there is an angular hypoechoic structure measuring 7 x 5 x 8 mm. Fibrocystic change also noted at 3 o'clock 4 cm from thenipple measuring 1.4 x 0.7 x 0.8 cm. 10/02/2023 Biopsy/Pathology Final Diagnosis A) LEFT BREAST, 4:00, 1 CM FROM NIPPLE, ULTRASOUND-GUIDED CORE BIOPSY: 1. Invasive ductal carcinoma measuring up to 5 mm in this sampling a. Lori grade: I of III; Grimstead score: 5 of 9 b. Angio-lymphatic invasion: Absent c. Associated DCIS: Present d. Subtype: Cribriform e. Grade of DCIS: 2 of 3 2. Breast Ancillary Testing: a. Hormone Receptors: Estrogen receptor: Positive (93%, moderate staining) Progesterone receptor: Positive (79%, moderate staining) b. HER2 by IHC: Negative (1+ by manual morphometry) c. Ki-67: 11% by image analysis 10/29/2023 Surgery and Procedures Left breast lumpectomy with left sentinel lymph node biopsy performed by Dr. Nathalie Andrews Final Diagnosis A) LEFT BREAST, MAGNETIC SEED-LOCALIZED LUMPECTOMY: 1. Invasive ductal carcinoma, Lori grade I of III a. Size: 8 mm b. Core biopsy site is associated with tumor 2. Extensive Ductal carcinoma in situ (DCIS), nuclear grade 2, Cribriform type a. Size: 22 mm 3. Margins: a. Invasive carcinoma is 3 mm from the initial lateral margin and 5 mm from the posterior margin b. DCIS involves the posterior margin (2 mm span)and is 2 mm from the initial anterior margin c. See part B for status of additional lateral anterior margin and synoptic at end for final marginstatus 4. Breast Ancillary Testing: Performed on prior case ([id number]) a. Hormone Receptors: Estrogen receptor: Positive (93%, moderate staining) Progesterone receptor: Positive (79%, moderate staining) b. HER2 by IHC: Negative (1+ by manual morphometry) c. Ki-67: 11% by image analysis 5. Surrounding breast with proliferative fibrocystic change B) LEFT BREAST, LATERAL ANTERIOR SKIN MARGIN, RE-EXCISION: 1. Benign breast tissue 2. Negative for atypia and malignancy C) LEFT AXILLARY SENTINEL LYMPH NODE, EXCISIONAL BIOPSY: 1. Single lymph node, negative for malignancy (0/1) SYNOPTIC REPORTING SPECIMEN Procedure: Excision (less than total mastectomy) Specimen Laterality: Left TUMOR Tumor Site: Clock position : 4 o'clock Tumor Site: Distance from nipple (Centimeters): 1 cm Histologic Type: Invasive carcinoma of no special type (ductal) Histologic Grade (Grimstead Histologic Score): Glandular (Acinar) / Tubular Differentiation: Score 1 Nuclear Pleomorphism: Score 2 Mitotic Rate: Score 1 Overall Grade: Grade 1 (scores of 3, 4 or 5) Tumor Size: Greatest dimension of largest invasive focus (Millimeters): 8 mm Tumor Focality: Single focus of invasive carcinoma Ductal Carcinoma In Situ (DCIS): Present : Positive for extensive intraductal component (EIC) Size (Extent) of DCIS: Estimated size (extent) of DCIS is at least (Millimeters): 22 mm Architectural Patterns: Cribriform Nuclear Grade: Grade II (intermediate) Necrosis: Not identified Lymphatic and / or Vascular Invasion: Not identified Dermal Lymphatic and / or Vascular Invasion: No skin present Treatment Effect in the Breast: No known presurgical therapy MARGINS Margin Status for Invasive Carcinoma: All margins negative for invasive carcinoma Distance from Invasive Carcinoma to Closest Margin: 5 mm Closest Margin(s) to Invasive Carcinoma: Posterior Margin Status for DCIS: DCIS present at margin Margin(s) Involved by DCIS: Posterior: Positive over a 2 mm span REGIONAL LYMPH NODES Regional Lymph Node Status: : All regional lymph nodes negative for tumor Total Number of Lymph Nodes Examined (sentinel and non-sentinel): 1 Number of [place] Nodes Examined: 1 pTNM CLASSIFICATION (AJCC 8th Edition) pT Category: pT1b pN Category: pN0 N Suffix: (sn) 11/07/2023 Surgery and Procedures Posterior margin revision with Dr. Andrews Final Diagnosis A) LEFT BREAST, NEW POSTERIOR MARGIN, EXCISION WITH MARGIN EVALUATION: 1. Benign breast tissue 2. Changes consistent with prior procedure 3. No atypia, in-situ, or invasive carcinoma identified 11/26/[address] Zeny Kaur, Medical Oncology. Oncotype DX score 19. She did not recommend chemotherapy, but did recommended moving forward with radiation treatment. Following radiation treatment, she recommended adjuvant endocrine therapy. 12/10/2023 - Radiation Therapy Radiation Therapy Treatment Details (Noted on 11/21/2023) Site: Left Breast Technique: No technique specified Goal: Curative Planned Treatment Start Date: 12/10/2023 INTERVAL HISTORY The patient was seen and examined today with Dr. Merritt. The patient reports feeling well overall. She feels she is healing well following both surgeries. She denies pain in the left breast but does experience occasional 'zingers'. They come and go sporadically and last only a short while. She is not bothered by them. She denies any swelling within the left breast. She did notice mild swelling in the left arm following surgery but this is improved and no longer present. She reports her incisions have healed well and are closed without drainage or redness. She denies any fevers. The patient denies a history of prior radiation therapy, connective tissue disorders, or inflammatory bowel disease. The patient denies any implanted devices. Her ECOG performance status is 0. REVIEW OF SYSTEMS Review of systems was negative except as documented above. PATIENT REPORTED SYMPTOM SCREEN FATIGUE (Scale: 0 = no fatigue; 10 = worst fatigue you can imagine): 1 PAIN (Scale: 0 = no pain; 10 = worst pain you can imagine): 1 OVERALL QUALITY OF LIFE (Scale: 0 = as bad as can be; 10 = as good as can be): 10 PAST MEDICAL HISTORY Past Medical History: Diagnosis Date Insufficiency Venous Menorrhagia Migraine With Aura Not Intractable Without Status Migrainosus Polycystic Ovary Syndrome PAST SURGICAL HISTORY Past Surgical History: Procedure Laterality Date ABLATION LESION FEMALE GENITALIA 01/2023 LUMPECTOMY BREAST WITH SENTINEL NODE BIOPSY Left 10/29/2023 OTHER CONVERTED SHX (SEE COMMENT) N/A 09/25/2013 >1. Bilateral radiofrequency ablation with a ClosureFAST device of bilateral great saphenous veins. REVISION BREAST Left 11/07/2023 margin revision FAMILY HISTORY Family History Problem Relation Age of Onset Varicose Veins Mother Uterine cancer Mother Skin cancer Sister Non-Hodgkin lymphoma Brother Skin cancer Brother Brain Tumor Maternal Grandfather Breast cancer Cousin Breast cancer Aunt SOCIAL HISTORY Social History Socioeconomic History Marital status: Tobacco Use Smoking status: Former Packs/day: .25 Types: Cigarettes Start date: 2002 Quit date: 2010 Years since quittin.0 Smokeless tobacco: Never Vaping Use Vaping Use: never used Substance and Sexual Activity Alcohol use: Not Currently Social Determinants of Health Food Insecurity: No Food Insecurity (11/25/2023) Hunger Vital Sign Worried About Running Out of Food in the Last Year: Never true Ran Out of Food in the Last Year: Never true Transportation Needs: No Transportation Needs (11/25/2023) PRAPARE - Transportation Lack of Transportation (Medical): No Lack of Transportation (Non-Medical): No Physical Activity: Inactive (11/25/2023) Exercise Vital Sign Days of Exercise per Week: 0 days Minutes of Exercise per Session: 0 min Housing Stability: Low Risk (11/25/2023) Housing Stability Housing: Living Situation: I have a steady place to live OBJECTIVE BP 113/68 (BP Location: Right arm, Patient Position: Sitting, Cuff Size: Large) Pulse 84 Temp 37 ??C (Temporal) Wt 99.6 kg PHYSICAL EXAM General: Patient is alert and oriented in no apparent distress. Neck: Supple. Lymph: No palpable cervical, supraclavicular, infraclavicular, or axillary adenopathy. Lungs: Clear to auscultation bilaterally. Heart: Regular rate and rhythm. Normal S1 and S2. ASSESSMENT / PLAN #1 Stage IA (pT1b, pN0(sn), cM0, G1, ER/SD+, HER2-) invasive ductal carcinoma of the left breast #2 Left breast lumpectomy with negative sentinel lymph node biopsy on October 29, 2023 It was a pleasure to meet with Fiordaliza and her , Sid, today. I had a discussion with them regarding her breast cancer diagnosis, including information regarding her staging, grade, and hormone receptors. We had a detailed discussion regarding the risks, benefits, and alternatives of radiotherapy in this setting. We discussed the recommendation for radiation treatment to the left whole breast in 5 or 15 fractions with a 4 fraction boost to the lumpectomy cavity, totaling 9 or 19 fractions.We also discussed the possibility of completing radiation treatment in 5 fractions to the lumpectomy cavity alone. I discussed the logistics, as well as, the acute and chronic side effects of radiotherapy. The acute side effects may include, but are not limited to, fatigue, radiation dermatitis, breast swelling and discomfort, and possible sore throat (if neck is irradiated). Long-term side effects can be rare and may include, but are not limited to, skin changes and texture changes of the breast, possible breast asymmetry, pulmonary scarring (typically of no clinical significance), radiation pneumonitis, increased risk of rib fracture with significant trauma, lymphedema, small increased risk of coronary artery disease (if left breast/chest wall is irradiated), very small risk of nerve injury to the brachial plexus (if neck is irradiated), hypothyroidism (if neck is irradiated), and a very small risk of secondary malignancy. The patient was provided with a written summary of recommendations. Her questions were answered to her verbalized satisfaction. She recently met with Medical Oncology, Dr. aKur, [facility] in [place]. She did not recommendchemotherapy at this time as her Oncotype DX score returned at 19. She recommended radiation therapy followed by adjuvant endocrine therapy. After discussion, the patient verbally stated that she would like to proceed with treatment with the 19 fraction course. She will undergo CT simulation today. We anticipate starting radiation therapyon December 10. I provided a prescription for mometasone and discussed its application process. She should apply this twice daily while undergoing radiation treatment and continue for 2 weeks following radiation treatment in addition to a non-scented lotion applied 2-3 times daily to the treatment field. Patient seen in collaboration with Dr. Merritt, please review his attestation for additional information. The patient was provided with our contact information. She was asked to contact us with questions or concerns. She verbally expressed her understanding of the plan. EDUCATION Ready to learn, no apparent learning barriers were identified; learning preferences include listening. Explained diagnosis and treatment plan; patient expressed understanding of the content. CONSENT Discussed the risks, benefits, alternatives, and the necessity of other members of the healthcare team participating in the procedure. All questions answered and consent given. PRIMARY PROVIDER Joanna Bran DO I personally spent 45 minutes in care of the patient today. Time includes both non face to face andface to face patient care. Signed by: Bhumika García APRN, C.N.P., D.N.P. 11/30/2023 10:03 AM REGIONAL BRANCH MANAGER [facility] [address] [place] [address] ONAL BRANCH MANAGER Associated attestation - Ronny Merritt M.D. - 12/03/2023 8:23 PM REGIONAL BRANCH MANAGER I saw and evaluated the patient and participated in the vides portions of the service. I reviewed thedocumentation of Bhumika García C.N.P. and agree with the findings and plan. Mrs. Fiordaliza Doe is a 43 y.o. female with a mammographically detected Stage IA (pT1b, pN0(sn), cM0, G1, ER+, SD+, HER2-, Oncotype DX score: 19) invasive ductal carcinoma of the lower outer quadrant of the left breast. She was treated with a left breast lumpectomy and sentinel lymph node biopsy by Dr. Andrews on October 29, 2023. Pathology confirmed 8 mm of invasive disease with negative margins by 5 mm and 22 mm of extensive DCIS with positive margins to the DCIS. Dr. Andrews performed are-excision on November 07, 2023 that showed no residual disease on pathology. She saw Dr. Kaur on November 26, 2023, and she recommended adjuvant endocrine therapy with no chemotherapy. We are asked by Dr. Andrews to evaluate the patient for radiotherapy. Her oncologic history is well detailed in Raquel's note. The patient reports she is recovering well from her surgeries. She has occasional shooting pains but is otherwise feeling well. Her ECOG performance status is 0. OBJECTIVE BP 113/68 (BP Location: Right arm, Patient Position: Sitting, Cuff Size: Large) Pulse 84 Temp 37 ??C (Temporal) Wt 99.6 kg PHYSICAL EXAM General: Patient is awake, alert, and oriented to person, place, and time. No apparent distress. She is here today with her Sid. Exam was chaperoned by Bhumika García CNP. Extremities: No edema. Breasts: Examined in the sitting and supine positions. The right breast has an everted nipple scattered fibroglandular changes, no overlying skin changes, and no expressible nipple discharge. The left breast well-healed surgical scar in the lower outer quadrant at 5 o'clock to 6 o'clock position with some scarring deep to this and other scattered fibroglandular changes, but no worrisome masses oroverlying skin changes. DIAGNOSTICS I reviewed the patient's imaging and pathology reports. ASSESSMENT / PLAN #1 Stage IA (pT1b, pN0(sn), cM0, G1, ER+, SD+, HER2-, Oncotype DX score: 19) invasive ductal carcinoma with associated extensive DCIS, status post left breast lumpectomy and sentinel lymph node biopsy on October 29, 2023 with negative margins to the invasive disease but positive margins to the DCIS followed by re-excision with no residual disease on November 07, 2023 I had a detailed discussion with the patient and her spouse regarding the risks, benefits, and alternatives of radiotherapy in this setting. I reviewed the NCCN guidelines in formulating my recommendations. I went over these with the patient. We discussed standard hypofractionated whole breast radiotherapy to a dose of 4005 cGy in 15 fractions with or without a boost of 1000 cGy in 4 fractions tothe lumpectomy cavity. We also discussed the possibility of treating the whole breast to a dose of 2600 cGy in 5 fractions (as per the FAST-Forward trial, Vondat et al., Lancet 2020) with possible boost of 1000 cGy in 4 fractions to the lumpectomy cavity. We also discussed accelerated partial breast irradiation to the lumpectomy cavity alone to a dose of 3000 cGy in 5 fractions. After this discussion, the patient decided for treatment to the left breast to a dose of 4005 in 15 fractions with a boost of 1000 cGy in 4 fractions to the lumpectomy cavity utilizing a breath hold technique for cardiac sparing I discussed the logistics as well as the acute and chronic side effects of treatment in detail. Fora complete listing of these, please see Uriamaury's note. After this discussion, I provided the patient with a written summary of my recommendations. Her questions were answered to her verbalized satisfaction. The patient verbally stated that she would liketo proceed with treatment and signed the consent form. She will undergo CT simulation today. We will endeavor to begin treatment December 10, 2023. My thanks to Natasha Issa, and Yina for the opportunity to participate in this patient's care. I have spent 40 minutes caring for this patient including both lphx-sl-nweg and tma-xwbt-sy-face time. Signed by: Ronny Merritt M.D. 11/30/23 6:03 PM [facility] [place] documented in this encounter Miscellaneous Notes * Addendum Note - Cyn Flowers C.NCasey - 11/30/2023 9:00 AM CSTSerafin addended by: Cyn Flowers C.N.A. on: 12/03/2023 7:50 AM Actions taken: Letter saved ONAL BRANCH MANAGER * Addendum Note - Ronny Merritt M.D. - 11/30/2023 9:00 AM CSTEncounter addended by: Ronny Merritt M.D. on: 12/03/2023 8:23 PM Actions taken: Edit attestation on clinical note ONAL BRANCH MANAGER documented in this encounter Plan of Treatment Upcoming Encounters Date Type Department Care Team (Late st Contact Info) Description 12/18/2023 8:30 AM REGIONAL BRANCH MANAGER Appointment Department of Radiation Oncology in [address] [phone] Ronny Merritt M.D. [address] [place] [phone] 12/19/2023 8:30 AM REGIONAL BRANCH MANAGER Appointment Department of Radiation Oncology in [address] [address] Ronny Merritt M.D. [address] [place] [phone] 12/19/2023 9:00 AM REGIONAL BRANCH MANAGER Appointment Department of Radiation Oncology in [address] [address] Ronny Merritt M.D. [address] [place] [phone] 12/20/2023 8:30 AM REGIONAL BRANCH MANAGER Appointment Department of Radiation Oncology in [address] [address] Ronny Merritt M.D. [address] [place] [phone] 12/21/2023 8:30 AM REGIONAL BRANCH MANAGER Appointment Department of Radiation Oncology in [address] [address] Ronny Merritt M.D. [address] [place] [phone] 12/24/2023 9:45 AM REGIONAL BRANCH MANAGER Appointment Department of Radiation Oncology in [address] [address] Ronny Merritt M.D. [address] [place] [phone] 12/25/2023 9:45 AM REGIONAL BRANCH MANAGER Appointment Department of Radiation Oncology in [address] [address] Ronny Merritt M.D. [address] [place] [phone] 12/26/2023 9:45 AM REGIONAL BRANCH MANAGER Appointment Department of Radiation Oncology in [address] [address] Ronny Merritt M.D. [address] [place] [phone] 12/26/2023 10:00 AM REGIONAL BRANCH MANAGER Appointment Department of Radiation Oncology in [address] [address] Ronny Merritt M.D. [address] [place] [phone] 12/27/2023 9:45 AM REGIONAL BRANCH MANAGER Appointment Department of Radiation Oncology in [address] [address] Ronny Merritt M.D. [address] [place] [phone] 12/28/2023 9:45 AM REGIONAL BRANCH MANAGER Appointment Department of Radiation Oncology in [address] [address] Ronny Merritt M.D. [address] [place] [phone] 12/31/2023 8:30 AM REGIONAL BRANCH MANAGER Appointment Department of Radiation Oncology in [address] [address] Ronny Merritt M.D. [address] [place] [phone] 01/01/2024 8:30 AM REGIONAL BRANCH MANAGER Appointment Department of Radiation Oncology in [address] [address] Ronny Merritt M.D. [address] [place] [phone] 01/02/2024 8:30 AM REGIONAL BRANCH MANAGER Appointment Department of Radiation Oncology in [address] [address] Ronny Merritt M.D. [address] [place] [phone] 01/02/2024 8:45 AM REGIONAL BRANCH MANAGER Appointment Department of Radiation Oncology in [address] [address] Ronny Merritt M.D. [address] [place] [phone] 01/03/2024 8:30 AM REGIONAL BRANCH MANAGER Appointment Department of Radiation Oncology in [address] [place] [address] Ronny Merritt M.D. [address] [place] [address] 01/04/2024 7:30 AM REGIONAL BRANCH MANAGER Appointment Department of Radiation Oncology in [place], [place] [address] [place] [address] Ronny Merritt M.D. [address] [place] [address] documented as of this encounter Visit Diagnoses Diagnosis Malignant Neoplasm Of Breast Lower Outer Quadrant Female Left (HCC)- Primary documented in this encounter
[2023-12-17] MEDS: ONDANSETRON 2 MG/ML inj 4 MG IVP (08:30)
[2023-12-17] MEDS: 0.9 % SODIUM CHLORIDE 1000 ml 1,000 ML IV (08:30)
[2023-12-17 08:33] LABS: Eosinophils Absolute Auto 0.01 K/uL (0.00-0.50); Eosinophils Percent Auto 0.1 % (0.0-7.0); Hematocrit 41.9 % (33.0-51.0); Hemoglobin* 14.7 gm/dL (12.0-16.0); Immature Granulocytes Abs Auto 0.02 K/uL (0.00-0.30); Immature Granulocytes Pct Auto 0.2 %; Lymphocytes Percent Auto 3.5 % (20-44); Mean Corpuscular HGB Conc 35 gm/dL (32-36); Mean Corpuscular Hemoglobin 32 pg (26-34); Mean Corpuscular Volume 90 fL (80-100); Monocytes Percent Auto 4.3 % (0.0-11.0); Neutrophils Percent Auto 91.9 % (42.0-72.0); Platelet Count* 221 K/uL (140-440); RDW Coefficient of Variation % 11.6 % (11.5-15.5); Red Blood Count 4.67 m/uL (4.00-5.20); White Blood Count* 10.36 K/uL (4.50-11.00)
[2023-12-17 08:36] LABS: Slide Review Reflex No
[2023-12-17 08:44] LABS: Albumin* 4.2 g/dL (3.3-5.0)
[2023-12-17 08:46] LABS: Amylase* 70 U/L (18-89); Creatinine* 0.8 mg/dL (0.5-1.5); Est. Creatinine Clearance* 94.76; Estimated Glomerular Filt Rate 94 ml/min
[2023-12-17 08:47] LABS: Alanine Aminotransferase* 21 U/L (4-35); Alkaline Phosphatase* 69 U/L (40-150); Aspartate Amino Transferase* 24 U/L (12-35); Bilirubin Direct* 0.1 mg/dL (0.0-0.5); Bilirubin Total* 0.7 mg/dL (0.1-1.5); Blood Urea Nitrogen* 17 mg/dL (5-24); Carbon Dioxide* 23 mmol/L (20-32); Glucose* 108 mg/dL (60-115); Total Protein* 7.6 g/dL (6.0-8.3)
[2023-12-17 08:48] LABS: Calcium* 8.7 mg/dL (8.4-10.6)
[2023-12-17 08:50] LABS: C Reactive Protein* 2.3 mg/dL (0.5-1.0)
--- NOTE | 2023-12-17 08:51 | CRLHL7_ITS ---
For Patients: As a result of the Century Cures Act, medical imaging exams and procedure reports are released immediately into your electronic medical record. You may view this report before your referring provider. If you have questions, please contact your health care provider. INDICATION: Left lower quadrant pain, left ovarian cyst on CT. TECHNIQUE: Ultrasound pelvis transvaginal for better assessment or to better visualize the endometrium. Real-time sonographic images with spectral and color Doppler imaging of the ovaries were obtained. COMPARISON: Abdomen and pelvis CT 12/17/2023 FINDINGS: Uterus: 9.4 x 4.9 x 6.0 cm. Subcentimeter nabothian cysts. Endometrium: Transvaginal imaging was performed to better evaluate the endometrium. Endometrial thickness measures 9 mm. No sign of endometrial mass or fluid. Right ovary measures 4.2 x 1.9 x 2.6 cm and left ovary measures 4.9 x 4.2 x 4.5 cm. Hypoechoic avascular lesion within the left ovary measuring 4.1 x 2.6 x 3.8 centimeters. Normal blood flow is demonstrated in both ovaries. Cul-de-sac: No significant free fluid. IMPRESSION: Complex left ovarian lesion measuring 4.1 centimeters. This lesion shows no significant vascularity and suspect this represents a complex hemorrhagic cyst. Recommend follow-up ultrasound in 8 weeks to document resolution. Dictated by Julio Cesar Mcgill MD @ 12/17/2023 10:05:09 AM (Electronically Signed)
[2023-12-17 08:56] LABS: Anion Gap 10 mEq/L (7-15); Chloride* 104 mmol/L (96-114); Potassium* 4.2 mmol/L (3.6-5.1); Sodium* 137 mmol/L (135-149)
[2023-12-17] MEDS: KETOROLAC 30 MG/ML inj IVP (09:02)
[2023-12-17 09:03] LABS: Procalcitonin* 0.12 ng/mL (<0.50)
[2023-12-17 09:11] LABS: Appearance Urine Cloudy (Clear); Bilirubin Urine 1+ (Negative); Blood Urine Negative (Negative); Color Urine Dark yellow (Yellow); Glucose Urine Negative (Negative); Ketones Urine Trace (Negative); Leukocyte Esterase Urine Trace (Negative); Nitrite Urine Negative (Negative); Protein Urine 1+ (Negative); Specific Gravity Urine 1.025 (1.000-1.030); pH Urine 5.5 (5.0-8.5)
[2023-12-17 09:24] LABS: RBC Urine 0-2 (0-2); WBC Urine 0-2 (0-5)
[2023-12-17 09:25] LABS: Bacteria Urine Moderate; Mucus Urine Moderate; Squamous Epithelial Cell Urine Many (None-Few)
[2023-12-17 11:24] LABS: Ur HCG Qualitative* Negative (Negative)
== END 2023-12-17 11:04 | disposition home or self-care (01) ==
PROVIDERS: Emergency Provider Family Medicine; PCP Family Medicine
DX: N83.202 Unspecified ovarian cyst, left side (principal); K59.00 Constipation, unspecified
CPT/HCPCS: 36415; 74176; 76830; 80048; 80076; 81001; 81025; 82150; 83605; 84145; 85025; 86140; 87086; 93976; 96374; 96375; 99284; J1885; J2405; J7030

== ENCOUNTER 2024-02-01 14:31 | Outpatient (CLI) | payer BC, SELFPAY ==
--- NOTE | 2024-02-01 15:00 | US_ITS ---
Patient: MAINE ACEVES Facility:?[facility] Patient ID:?[id number] Site Patient ID:?[id number]. Site :?[id number] Study:?US-OB Pelvis TV pelvic f/u-02/01/2024 3:31:33 PM Ordering Physician:?Geetha Fair Final Report: INDICATION: Left ovarian cyst. History of endometrial ablation. TECHNIQUE: Transvaginal pelvic ultrasound with grayscale and color Doppler images. COMPARISON: 12/17/2023 pelvic ultrasound. FINDINGS: Uterus is anteverted and measures 9.4 x 4.7 x 6.9 cm. Endometrial stripe thickness is 1.2 cm. Nabothian cysts in the cervix. Both ovaries appear normal. Normal color flow to the ovaries. Previously seen complex left ovarian cyst has resolved. No adnexal mass or free fluid. IMPRESSION: Complex left ovarian cyst has resolved. Dictated by Tony Gomez MD @ 02/05/2024 8:20:41 AM Signed by:?Tony Gomez MD @02/05/2024 8:20:41 AM (Electronic Signature)
== END 2024-02-01 14:32 | disposition home or self-care (01) ==
LOC: US 14:32
PROVIDERS: PCP Family Medicine; Visit Provider Obstetrics & Gynecology
DX: N83.202 Unspecified ovarian cyst, left side (principal); R10.9 Unspecified abdominal pain
CPT/HCPCS: 76830

== ENCOUNTER 2024-08-12 06:08 | Day surgery (SDC) | payer BC, SELFPAY ==
--- OUTSIDE RECORDS SUMMARY | 2024-08-12 06:11 | XMS_ITS | Clinical Summary ---
Author Organization [employer] [facility] Address [place], [place] [address] Care Team Providers Care Mixing Plant Operator Name Role Phone Yina Joanna Zaidi DO Primary Care Provider [phone] Melita Chilel RN Unavailable [phone] Nathalie Andrews MD Unavailable [phone] [facility] Unavailable Zeny Kaur MD Unavailable Karen Leon PIPELINE ENGINEER Unavailable Nixon Felton Unavailable [phone] Allergies Active Allergy Reactions Criticality Noted [...] Take 10 mg by mouth once daily. Active anastrozole (ARIMIDEX) 1 mg tabletIndications:Mal ignant neoplasm of lower-outer quadrant of left breast of female, estrogen receptor positive (HC) Take 1 Tablet (1 mg) by mouth once daily. 30 Tablet 11 02/26/2024 Active calcium carbonate/vitamin D3 (CALCIUM 500 + D, D3, ORAL) Take by mouth. Active leuprolide acetate (LUPRON DEPOT IM) Inject intramuscular. 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, estrogen receptor positive 10/08/2023 Cancer Staging:Clinical stage from 10/08/2023:Stage IA(cT1b, cN0, cM0, G1, ER+, KS+, HER2-) - Signed by Nathalie Andrews MD on 10/08/2023 Pathologic stage from 11/11/2023:Stage IA(pT1b, pN0(sn), cM0, G1, ER+, KS+, HER2-) - Unsigned Migraine with aura 09/14/2023 Menorrhagia 09/14/2023 Venous insufficiency 09/12/2017 Superficial thrombophlebitis 10/24/2012 PCOS (polycystic ovarian syndrome) 06/22/2009 Irregular menstrual cycle 03/13/2007 Obesity, unspecified 03/13/2007 Overview (03/13/2007): BMI 30.4 Resolved Problems Problem Noted Date Diagnosed Date Resolved Date abnormality affecting management of mother 03/16/2015 12/30/2019 Tobacco use disorder 03/13/2007 012 Encounters Date Type Department Care Team Description 08/11/2024 1:45 PM CDT Office Visit [facility] [address] [address] Nathalie Andrews MD Follow Up 08/11/2024 Travel 08/07/2024 8:19 AM CDT - 08/07/2024 11:59 PM CDT Hospital Encounter [facility] [address] [facility] [address] [place] [id number] Joanna Bran, Breast pain; Malignant neoplasm of lower-outer quadrant of left breast of female, estrogen receptor positive (HC) 08/07/2024 Travel 07/31/2024 2:00 PM CDT Preop Visit [facility] [address] [place] [address] Joanna Bran DO Pre-Op Exam (08/12/[address] Newsome vulvar cyst removal. ) 07/31/2024 Travel 07/28/2024 Travel 07/17/2024 1:30 PM CDT Office Visit [facility] [address] [place] [address] Vinnie Palmer MD CV Vascular Est (1 month follow up; Venous insufficiency. CTA and U/S scheduled prior. ) 07/17/2024 8:59 AM CDT - 07/17/2024 11:59 PM CDT Hospital Encounter [facility] [address] [place] [address] Vinnie Palmer MD Venous insufficiency 07/17/2024 Orders Only [facility] [address] [place] [address] Vinnie Palmer MD <No scans attached> 07/17/2024 Travel 07/14/2024 Travel 07/01/2024 Telephone [facility] [address] [place] [address] All Og MD Results 06/26/[address] [phone] Karen Leon, CARLOS 06/23/2024 2:30 PM CDT Office Visit [facility] [address] [place] [address] All Og MD Consult (Lump on back.) 06/23/2024 Travel 06/21/2024 Travel 06/12/2024 9:00 AM CDT Office Visit [facility] [address] [place] [address] Vinnie Palmer MD CV Vascular Est (follow up; new /reocurring symptoms-see phone note. U/S scheduled for 06/09/2024,) 06/12/2024 Travel 06/09/2024 1:00 PM CDT Ancillary Procedure [facility] [address] [place] [address] 06/09/2024 Travel 06/07/2024 Travel 06/06/2024 Orders Only [facility] [address] [place] [id number] Vinnie Palmer MD <No scans attached> 06/05/2024 Orders Only [facility] [address] [place] [id number] Vinnie Palmer MD <No scans attached> 06/04/2024 2:00 PM CDT Office Visit [facility] [address] [place] [address] Joanna Bran, Vaginal Problem (Has a sore on left labia that bleeds on and off for several months. irritating. 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 and associated with micki horses when bending) 06/04/2024 Travel 06/04/2024 Telephone [facility] [address] [place] [address] Vinnie Palmer MD Follow Up 06/03/2024 2:15 PM CDT Office Visit [facility] [address] [place] [address] Karen Leon PIPELINE ENGINEER Follow Up (Malignant neoplasm of lower-outer quadrant of left breast of female, estrogen receptor positive (HC)//) 06/03/2024 2:06 PM CDT - 06/03/2024 11:59 PM CDT Hospital Encounter [facility] [address] [place] [address] Karen Leon, PIPELINE ENGINEER Malignant neoplasm of lower-outer quadrant of left breast of female, estrogen receptor positive (HC) (Primary Dx) 06/03/2024 Travel 06/01/2024 Travel 05/28/2024 Hospital/[facility] Telephone Encounter [facility] [address] [place] [address] Diana Mclaughlin, OSCAR Pre Procedure (PVP) from Last 3 Months Immunizations Name Administration Dates Next Due COVID-19 vaccine ([email or web address] 30mcg/0.3mL) LIZETTE MURCIA 04/05/2021,03/03/2021 Influenza Virus, Unspecified [...] drink = 0.6 oz pur e alcohol) PHQ-2 Answer Date Recorded PHQ-2 TOTAL SCORE 0 09/13/2022 Social Connections Answer Date Recorded Frequency of Communication with Friends and Fami ly 0 06/01/2024 Financial Resource Strain Answer Date R ecorded Difficulty of Paying Living Expenses 3 06/01/2024 Difficulty of Paying Living Expenses Not on file 06/01/2024 Food Insecurity Answer Date Recorded Worried About Running Out of Food in the Last Ye ar 1 06/01/2024 Transportation Needs Answer Date Record ed Lack of Transportation (Medical) 1 06/01/2024 Housing Stability Answer Date Recorded Unable to Pay for Housing in the Last Year 1 06/01/2024 Sex and Gender Information Value Date Recorded Sex Assigned at Not on file Gender Identity Not on file Sexual Orientation Not on file Obstetrics History Para Term AB IAB SAB Ectopic Multiple Livin g Live Births 2 1 1 1 Date Outcome GA Total Labor Labor/2nd/3rd Weight Sex Type Anes PTL Leighann A1 A5 Name Clin Term Last Filed Vital Signs Vital Sign Reading Time Taken Comments Blood Pressure 113/68 08/11/2024 1:44 PM CDT Pulse 82 08/11/2024 1:44 PM CDT Temperature 37.2 ??C (99 ??F) 08/11/2024 1:44 PM CDT Respiratory Rate 16 08/11/2024 1:44 PM CDT Oxygen Saturation 96% 08/11/2024 1:44 PM CDT Inhaled Oxygen Concentration - - Weight 101.8 kg (224 lb 8 oz) 08/11/2024 1:44 PM CDT Height 175.3 cm (5' 9) 08/11/2024 1:44 PM CDT Body Mass Index 33.15 08/11/2024 1:44 PM CDT Plan of Treatment Upcoming Encounters Date Type Department Care Team (Late st Contact Info) Description 09/10/2024 10:15 AM CDT Office Visit [facility] [address] [place] [address] Karen Leon, PIPELINE ENGINEER [address] [place] [address] 09/10/2024 10:45 AM CDT Appointment [facility] [address] [place] [address] 02/25/2025 10:30 AM CDT Office Visit [facility] [address] [place] [address] Ayde Bartlett PA [address] [place] [address] 08/11/2025 10:15 AM CDT Appointment [facility] [address] [address] 08/11/2025 10:45 AM CDT Office Visit [facility] [address] [address] Nathalie Andrews MD [address] [address] Health Maintenance Due Date Last Done Comments Pneumococcal series for age 6-64 (1 of 2 - PCV) 1986 COVID-19 vaccine series (3 - Pfizer risk series) 05/03/2021 04/05/2021, 03/03/2021 Depression screening for age 12+ 09/13/2023 09/13/2022, 09/13/2021, 08/09/2021, Additional history exists Influenza for age 9-49 07/13/2024 2, 08/21/2022, 08/09/2021, Additional history exists BMI (ht and wt on same day) for age 18+ 08/11/2025 08/11/2024, 07/31/2024, 06/12/2024, Additional history exists Pap test for age 21-65 09/07/2025 0, 09/07/2020, 06/04/2015, Additional history exists Tetanus booster 11/28/2028 11/28/2018, 02/11, 08/12/2012, Additional history exists HIV for age 15-65 Completed 08/15/2011 Hepatitis C screening for ag e 18-79 Completed 08/15/2011 Tdap Completed 11/28/2018, 02/11, 08/12/2012, Additional history exists Procedures Procedure Name Priority Date/Time Associated Diagnosis Comments XR MAMMO ELICIA BILAT DIAG COLIN 08/07/2024 9:24 AM CDT Breast pain Malignant neoplasm of lower-outer quadrant of left breast of female, estrogen receptor positive (HC) US BREAST BILATERAL LIMITED COLIN 08/07/2024 9:23 AM CDT Breast pain Malignant neoplasm of lower-outer quadrant of left breast of female, estrogen receptor positive (HC) US VENOUS INSUFFICIENCY LOWER EXTREMITY BILATERAL Routine 07/17/2024 12:56 PM CDT Venous insufficiency CT VENOGRAM ABD PELVIS W CONTRAST Routine 07/17/2024 10:24 AM CDT Venous insufficiency CREATININE,ISTAT Routine 07/17/2024 9:53 AM CDT PATH TISSUE EXAM Routine 06/23/2024 3:30 PM CDT Soft tissue mass US BACK SOFT TISSUE LOWER Routine 06/09/2024 1:11 PM CDT Soft tissue mass FACTORY MANAGER THIN PREP PAP SCREEN IMAGED Routine 09/07/2020 9:01 AM CDT Screening for malignant neoplasm of cervix ANTI HIV 1/2 Routine 08/15/2011 1:17 PM CDT Screening examination for STD (sexually transmitted disease) ANTI HCV Routine 08/15/2011 1:17 PM CDT Screening examination for STD (sexually transmitted disease) from Last 3 Months or Most Recently Relevant to Health Maintenance Results * XR MAMMO ELICIA BILAT DIAG (08/07/2024 9:24 AM CDT) Anatomical Region Laterality Modality BREASTS, Breast Left, Breast Right Bilateral Mammography 08/07/2024 12:4 1 PM CDT Impressions 08/07/2024 3:55 PM CDT 1. RIGHT breast is negative. 2. Superficial tiny skin lesion LEFT with no underlying cyst or solid mass within the breast. RECOMMENDATIONS: Clinical follow-up for skin lesion. Annual screening mammography. Results and recommendations were discussed with the patient at the time of the exam. BI-RADS Category 2: Benign ?? Dictated by: Kaitlyn Mosqueda MD @08/07/2024 12:41:52 PM/CRL:nahedr PATIENTS: You will also receive a letter with your examination results in an easy to read format. ??If you have questions about your results, please contact your referring provider. Narrative 08/07/2024 3:55 PM CDT For Patients: As a result of the Cures Act, medical imaging exams and procedure reports are released immediately into your electronic medical record. ??You may view this report before your referring provider. ?? If you have questions, please contact your health care provider. BILATERAL DIGITAL DIAGNOSTIC MAMMOGRAM WITH TOMOSYNTHESIS AND COMPUTER-AIDED DETECTION, 08/07/2024 BILATERAL BREAST ULTRASOUND, 08/07/2024 CLINICAL HISTORY: Personal history LEFT breast cancer treated with lumpectomy and radiation in 2022. Small palpable skin lesion inferior LEFT breast. RIGHT lateral breast pain. COMPARISON: 09/18/2023, 10/02/2023. TECHNIQUE: Digital BILATERAL mammogram in standard projections with tomosynthesis. Computer-aided detection. ??Additional lateral view obtained of the LEFT breast. Real-time ultrasound imaging of the BILATERAL breasts with imaging documentation. BREAST COMPOSITION: There are scattered areas of fibroglandular density. FINDINGS: BILATERAL diagnostic mammogram: The RIGHT breast is negative for interval change or mammographic sign of malignancy. LEFT breast shows postoperative change from lumpectomy and sentinel lymph node resection. Mammogram is otherwise negative. Ultrasound targeted to the skin lesion 6 o'clock 4 cm from the nipple shows a superficial tiny skin cyst 0.3 cm in size. No other findings. Ultrasound RIGHT upper outer breast is negative. No underlying cyst or solid mass identified. Joanna Bran DO MAMMO * US BREAST BILATERAL LIMITED (08/07/2024 9:23 AM CDT) Anatomical Region Laterality Modality BREASTS, Breast Left, Breast Right Bilateral Ultrasound, Other Narrative 08/07/2024 3:55 PM CDT For Patients: As a result of the Cures Act, medical imaging exams and procedure reports are released immediately into your electronic medical record. ??You may view this report before your referring provider. ?? If you have questions, please contact your health care provider. BILATERAL BREAST ULTRASOUND, 08/07/2024 PLEASE SEE [id number] FOR DIGITAL BILATERAL MAMMOGRAM SAME DAY. oJanna Bran DO US * US VENOUS INSUFFICIENCY LOWER EXTREMITY BILATERAL (07/17/2024 12:56 PM CDT) Anatomical Region Laterality Modality LEGS Ultrasound 07/17/2024 12:0 8 PM CDT Narrative 07/17/2024 8:23 PM CDT VASCULAR ULTRASOUND REPORT [facility] DOE Accession#: ?? [id number] : ?1980 Study Date: ?? 07/17/2024 12:08:49 PM Age: ?43 years ?? Tech: ? CAR Gender: F ?Referring MD: VINNIE PALMER Site: [facility] Study performed: ?Duplex US venous insufficiency, (bilateral). Indication for study: varicose veins Study Quality: ?Good TECHNIQUE: Lower/upper extremity veins were examined with duplex ultrasound, color-flow and spectral Doppler per exam protocol. Vein compressibility by transducer pressure was used to evaluate presence/absence of DVT/SVT. Venous flow and competence was evaluated by flow augmentation maneuvers per exam protocol. Insufficiency studies were performed with the patient in upright position, with vein diameters measured in mm, and reflux. IMPRESSION: 1. No evidence of deep vein thrombosis in the right and left lower extremity. 2. Deep vein insufficiency noted in the right common femoral, femoral and popliteal veins. 3. Deep vein insufficiency noted in the left common femoral and popliteal veins. 4. Superficial venous insufficiency was noted in the right sapheno-femoral junction and greater saphenous vein at distal thigh, knee, upper calf, mid calf and lower calf. 5. Superficial venous insufficiency was noted in the left sapheno-femoral junction. 6. Incompetent varicose and/or police dispatcher veins as listed below. COMPARISON: Compared to prior study 01/31/2024, new varicose veins bilaterally. FINDINGS: Right Lower Extremity: No evidence of DVT. Perforating vein in mid medial calf, 3.1 mm diameter, 3.2 sec reflux. Perforating vein in distal medial calf, 2.4 mm diameter, 3.8 sec reflux. Varicose vein at proximal medial thigh, 4.6 mm diameter, 2.0 sec reflux. Varicose vein at mid medial thigh, 4.2 mm diameter, 2.2 sec reflux. Varicose vein at distal medial thigh, 6.2 mm diameter, 4.3 sec reflux. Varicose vein at mid medial calf, 5.0 mm diameter, 4.7 sec reflux. Varicose vein at distal medial calf, 2.6 mm diameter, 1.2 sec reflux. Left Lower Extremity: No evidence of DVT. Varicose vein at lower vulva, 2.7 mm diameter, 1.2 sec reflux. MEASUREMENTS: + +--------+----+--------+------+ RIGHT ? Compress SVT Diameter Reflux ?(mm) ?? (secs) + +--------+----+--------+------+ SFJ ? yes ? None ??9.1 ?? 1.8 ?? + +--------+----+--------+------+ GSV THIGH PRX ? + +--------+----+--------+------+ GSV THIGH MID ? + +--------+----+--------+------+ GSV THIGH DST yes ? None ??3.6 ?? 4.0 ?? + +--------+----+--------+------+ GSV KNEE ? yes ? None ??4.2 ?? 3.6 ?? + +--------+----+--------+------+ GSV CALF UPPER yes ? None ??4.1 ?? 4.9 ?? + +--------+----+--------+------+ GSV CALF MID ?? yes ? None ??4.3 ?? 4.8 ?? + +--------+----+--------+------+ GSV CALF LOW ?? yes ? None ??3.4 ?? 2.2 ?? + +--------+----+--------+------+ SSV KNEE/SPJ ?? yes ? None ??1.7 ?? 0.0 ?? + +--------+----+--------+------+ SSV CALF PRX ?? yes ? None ??1.5 ?? 0.0 ?? + +--------+----+--------+------+ SSV CALF MID ?? yes ? None ??0.9 ?? 0.0 ?? + +--------+----+--------+------+ SSV CALF DST ?? yes ? None ??1.4 ?? 0.0 ?? + +--------+----+--------+------+ + +--------+----+ +------+ LEFT ? Compress SVT Diameter (mm) Reflux ? (secs) + +--------+----+ +------+ SFJ ? yes ? None ? 6.8 ? 1.2 ?? + +--------+----+ +------+ GSV THIGH PRX ? + +--------+----+ +------+ GSV THIGH MID ? + +--------+----+ +------+ GSV THIGH DST ? + +--------+----+ +------+ GSV KNEE ? + +--------+----+ +------+ GSV CALF UPPER ? + +--------+----+ +------+ GSV CALF MID ? + +--------+----+ +------+ GSV CALF LOW ? + +--------+----+ +------+ SSV KNEE/SPJ ?? yes ? None ? 3.1 ? 0.0 ?? + +--------+----+ +------+ SSV CALF PRX ?? yes ? None ? 1.8 ? 0.0 ?? + +--------+----+ +------+ SSV CALF MID ?? yes ? None ? 1.9 ? 0.0 ?? + +--------+----+ +------+ SSV CALF DST ?? yes ? None ? 1.8 ? 0.0 ?? + +--------+----+ +------+ can't evaluate Perforating Vein + + + + RIGHT Location ? Diameter (mm) Reflux (secs) + + + + mid medial calf ? 3.1 ? 3.2 ? + + + + distal medial calf ? 2.4 ? 3.8 ? + + + + Varicose Veins + + + + RIGHT Location ? Diameter (mm) Reflux (secs) + + + + proximal medial thigh ? 4.6 ? 2.0 ? + + + + mid medial thigh ? 4.2 ? 2.2 ? + + + + distal medial thigh ? 6.2 ? 4.3 ? + + + + mid medial calf ? 5.0 ? 4.7 ? + + + + distal medial calf ? 2.6 ? 1.2 ? + + + + + + + + LEFT Location Diameter (mm) Reflux (secs) + + + + lower vulva ? 2.7 ? 1.2 ? + + + + DEEP SYSTEM +----+--------+-----+ +--------+----+ + ? RIGHT ?? RIGHT RIGHT ? LEFT ? LEFT LEFT ? Compress DVT ?? Reflux (secs) Compress DVT Reflux (secs) +----+--------+-----+ +--------+----+ + CFV yes ? None 2.7 ? yes ? None 1.1 ? +----+--------+-----+ +--------+----+ + PFV yes ? None ? yes ? None ? +----+--------+-----+ +--------+----+ + FV ?? yes ? None 1.1 ? yes ? None 0.0 ? +----+--------+-----+ +--------+----+ + POPV yes ? None 1.1 ? yes ? None 1.9 ? +----+--------+-----+ +--------+----+ + can't evaluate Gulshan Gallo MD. Electronically signed on 07/17/2024 8:23:28 PM This study was performed and interpreted by a service accredited by the Intersocietal Accreditation Commission (IAC/Vascular), [email or web address] Report generated by [employer]. ??Final ?? Procedure Note Gulshan Gallo MD - 07/17/2024 VASCULAR ULTRASOUND REPORT MAINE DOE : 1980 Study Date: 07/17/2024 12:08:49 PM Age: 43 years Tech: CAR Gender: F Referring MD: VINNIE PALMER Site: [facility] Study performed: Duplex US venous insufficiency, (bilateral). Indication for study: varicose veins Study Quality: Good TECHNIQUE: Lower/upper extremity veins were examined with duplex ultrasound,color-flow and spectral Doppler per exam protocol. Vein compressibility bytransducer pressure was used to evaluate presence/absence of DVT/SVT.Venous flow and competence was evaluated by flow augmentation maneuversper exam protocol. Insufficiency studies were performed with the patientin upright position, with vein diameters measured in mm, and reflux. IMPRESSION: 1. No evidence of deep vein thrombosis in the right and left lowerextremity. 2. Deep vein insufficiency noted in the right common femoral, femoral andpopliteal veins. 3. Deep vein insufficiency noted in the left common femoral and poplitealveins. 4. Superficial venous insufficiency was noted in the rightsapheno-femoral junction and greater saphenous vein at distal thigh, knee,upper calf, mid calf and lower calf. 5. Superficial venous insufficiency was noted in the left sapheno- femoraljunction. 6. Incompetent varicose and/or police dispatcher veins as listed below. COMPARISON: Compared to prior study 01/31/2024, new varicose veins bilaterally. FINDINGS: Right Lower Extremity: No evidence of DVT. Perforating vein in mid medial calf, 3.1 mm diameter,3.2 sec reflux. Perforating vein in distal medial calf, 2.4 mm diameter,3.8 sec reflux. Varicose vein at proximal medial thigh, 4.6 mm diameter,2.0 sec reflux. Varicose vein at mid medial thigh, 4.2 mm diameter, 2.2sec reflux. Varicose vein at distal medial thigh, 6.2 mm diameter, 4.3 secreflux. Varicose vein at mid medial calf, 5.0 mm diameter, 4.7 sec reflux.Varicose vein at distal medial calf, 2.6 mm diameter, 1.2 sec reflux. Left Lower Extremity: No evidence of DVT. Varicose vein at lower vulva, 2.7 mm diameter, 1.2 secreflux. MEASUREMENTS: + +--------+----+--------+------+ RIGHT Compress SVT Diameter Reflux (mm) (secs) + +--------+----+--------+------+ SFJ yes None 9.1 1.8 + +--------+----+--------+------+ GSV THIGH PRX + +--------+----+--------+------+ GSV THIGH MID + +--------+----+--------+------+ GSV THIGH DST yes None 3.6 4.0 + +--------+----+--------+------+ GSV KNEE yes None 4.2 3.6 + +--------+----+--------+------+ GSV CALF UPPER yes None 4.1 4.9 + +--------+----+--------+------+ GSV CALF MID yes None 4.3 4.8 + +--------+----+--------+------+ GSV CALF LOW yes None 3.4 2.2 + +--------+----+--------+------+ SSV KNEE/SPJ yes None 1.7 0.0 + +--------+----+--------+------+ SSV CALF PRX yes None 1.5 0.0 + +--------+----+--------+------+ SSV CALF MID yes None 0.9 0.0 + +--------+----+--------+------+ SSV CALF DST yes None 1.4 0.0 + +--------+----+--------+------+ + +--------+----+ +------+ LEFT Compress SVT Diameter (mm) Reflux (secs) + +--------+----+ +------+ SFJ yes None 6.8 1.2 + +--------+----+ +------+ GSV THIGH PRX + +--------+----+ +------+ GSV THIGH MID + +--------+----+ +------+ GSV THIGH DST + +--------+----+ +------+ GSV KNEE + +--------+----+ +------+ GSV CALF UPPER + +--------+----+ +------+ GSV CALF MID + +--------+----+ +------+ GSV CALF LOW + +--------+----+ +------+ SSV KNEE/SPJ yes None 3.1 0.0 + +--------+----+ +------+ SSV CALF PRX yes None 1.8 0.0 + +--------+----+ +------+ SSV CALF MID yes None 1.9 0.0 + +--------+----+ +------+ SSV CALF DST yes None 1.8 0.0 + +--------+----+ +------+ can't evaluate Perforating Vein + + + + RIGHT Location Diameter (mm) Reflux (secs) + + + + mid medial calf 3.1 3.2 + + + + distal medial calf 2.4 3.8 + + + + Varicose Veins + + + + RIGHT Location Diameter (mm) Reflux (secs) + + + + proximal medial thigh 4.6 2.0 + + + + mid medial thigh 4.2 2.2 + + + + distal medial thigh 6.2 4.3 + + + + mid medial calf 5.0 4.7 + + + + distal medial calf 2.6 1.2 + + + + + + + + LEFT Location Diameter (mm) Reflux (secs) + + + + lower vulva 2.7 1.2 + + + + DEEP SYSTEM +----+--------+-----+ +--------+----+ + RIGHT RIGHT RIGHT LEFT LEFT LEFT Compress DVT Reflux (secs) Compress DVT Reflux (secs) +----+--------+-----+ +--------+----+ + CFV yes None 2.7 yes None 1.1 +----+--------+-----+ +--------+----+ + PFV yes None yes None +----+--------+-----+ +--------+----+ + FV yes None 1.1 yes None 0.0 +----+--------+-----+ +--------+----+ + POPV yes None 1.1 yes None 1.9 +----+--------+-----+ +--------+----+ + can't evaluate Gulshan Gallo MD. Electronically signed on 07/17/2024 8:23:28 PM This study was performed and interpreted by a service accredited by theIntersocietal Accreditation Commission (IAC/Vascular),[email or web address] Report generated by [employer]. Final Vinnie Palmer MD US * CT VENOGRAM ABD PELVIS W CONTRAST (07/17/2024 10:24 AM CDT) Anatomical Region Laterality Modality LEGS, Abdomen, Pelvis Computed T omography 07/18/2024 6:44 AM CDT Impressions 07/18/2024 6:[address] of the abdomen and pelvis. No venous abnormality evident. No finding to explain venous insufficiency or vulvar varices. Please note that all CT scans at this facility use dose modulation, iterative reconstruction, and/or weight-based dosing when appropriate to reduce radiation dose to as low as reasonably achievable. Dictated by Lobito Tobias MD @ 07/18/2024 6:44:36 AM (Electronically Signed) Narrative 07/18/2024 6:44 AM CDT For Patients: ??As a result of the Cures Act, medical imaging exams and procedure reports are released immediately into your electronic medical record. ??You may view this report before your referring provider. ??If you have questions, please contact your health care provider. INDICATION: Venous insufficiency. Vulvar varices. TECHNIQUE: CT abdomen and pelvis acquired with 120 cc Omnipaque 350 IV contrast. COMPARISON: 12/17/2023. FINDINGS: Lower chest: Unremarkable. Liver: Unremarkable. Normal in size and attenuation. No suspicious masses. Gallbladder and bile ducts: Unremarkable. No stones or inflammation. No biliary dilatation. Pancreas: Unremarkable. No mass or inflammation. Spleen: Unremarkable. Normal in size. No masses. Adrenal glands: Unremarkable. No nodules. Kidneys: Unremarkable. No suspicious masses, stones, or hydronephrosis. GI tract: Unremarkable. Normal in caliber. No sign of mass or inflammation. Normal appendix. Vasculature: Abdominal aorta is normal in caliber Mesenteric arteries are patent. IVC and iliac veins are patent and normal in caliber. Lymph nodes: No lymphadenopathy. Peritoneum/Abdominal Wall: Unremarkable. No sign of mass or infiltration. No free air or significant free fluid. Pelvis: Unremarkable. Bones: Unremarkable for age. Procedure Note Lobito Tobias MD - 07/18/2024 For Patients: As a result of the Cures Act, medical imagingexams and procedure reports are released immediately into your electronicmedical record. You may view this report before your referring provider.If you have questions, please contact your health care provider. INDICATION: Venous insufficiency. Vulvar varices. TECHNIQUE: CT abdomen and pelvis acquired with 120 cc Omnipaque 350 IV contrast. COMPARISON: 12/17/2023. FINDINGS: Lower chest: Unremarkable. Liver: Unremarkable. Normal in size and attenuation. No suspicious masses. Gallbladder and bile ducts: Unremarkable. No stones or inflammation. Nobiliary dilatation. Pancreas: Unremarkable. No mass or inflammation. Spleen: Unremarkable. Normal in size. No masses. Adrenal glands: Unremarkable. No nodules. Kidneys: Unremarkable. No suspicious masses, stones, or hydronephrosis. GI tract: Unremarkable. Normal in caliber. No sign of mass orinflammation. Normal appendix. Vasculature: Abdominal aorta is normal in caliber Mesenteric arteries arepatent. IVC and iliac veins are patent and normal in caliber. Lymph nodes: No lymphadenopathy. Peritoneum/Abdominal Wall: Unremarkable. No sign of mass or infiltration.No free air or significant free fluid. Pelvis: Unremarkable. Bones: Unremarkable for age. IMPRESSION: Normal CT of the abdomen and pelvis. No venous abnormality evident. Nofinding to explain venous insufficiency or vulvar varices. Please note that all CT scans at this facility use dose modulation,iterative reconstruction, and/or weight-based dosing when appropriate toreduce radiation dose to as low as reasonably achievable. Dictated by Lobito Tobias MD @ 07/18/2024 6:44:36 AM (Electronically Signed) Vinnie Palmer MD CT * (ABNORMAL) CREATININE,ISTAT (07/17/2024 9:53 AM CDT) Pathologist [facility] CREATININE, POCT 0.90 0.57 - 1.11 mg/dL 07/17/2024 3:26 PM CDT [employer] [facility] [employer] [facility] Comment:Caution: Patients ta melvin Hydroxyurea have falsely increased iStat Creatinine results. Verify creatinine results ordering a Creatinine (86604.2) eGFR 82(L) >90 mL/min/1.7 3m2 07/17/2024 3:26 PM CDT [employer] [facility] [facility] Comment:As of 2022, eG FR is calculated by the CKD-EPI creatinine equation without race adjustment. eGFR can be influenced by muscle mass, exercise, and diet. The reported eGFR is an estimation only and is only applicable if the renal function is stable. Blood BLOOD SPECIMEN / Unknown 07/17/2024 9:53 AM CDT 07/17/2024 3:26 PM CDT Vinnie Palmer MD CHEMISTRY [facility] [address] [place] [address], * PATH TISSUE EXAM (06/23/2024 3:30 PM CDT) Case Report Pathology Report ?Case: [id number] ? Authorizing Provider: ??All Og MD ?Collected: ? 06/23/2024 1530 ? Ordering Location: ? [facility] ?? Received: ?06/23/2024 1543 ? Clinic ? Pathologist: ? Moncho Metcalf MD ? Specimen: ?Back ? 06/26/2024 2:28 PM CDT [facility] Final Diagnosis A) SOFT TISSUE, LEFT BACK, EXCISION: 1. Fragments of fibroadipose tissue, consistent with lipoma 2. Negative for malignancy 06/26/2024 2:28 PM CDT [facility] Clinical Information Enlarging left lower back mass 06/26/2024 2:28 PM CDT [facility] Gross Description A) Received in formalin, labeled with the patient's name and Lt back mass, is a 5.3 x 3.5 x 2.0 cm aggregate of 3 irregular and disrupted portions of yellow-pink, lobulated adipose tissue. ??No hemorrhage or necrosis identified. ??Representativ e sections are submitted in 4 cassettes. JKT 06/24/2024 06/26/2024 2:28 PM CDT [facility] Microscopic Description The final diagnosis is based on microscopic examination of appropriate sections of all specimens. 06/26/2024 2:28 PM CDT [facility] Additional Information Interpreted at [facility] - [address] [facility] [address], [place] [address] 06/26/2024 2:28 PM CDT [facility] Other (Back) Non-Blood / Unknown 06/23/2024 3:30 PM CDT 06/23/2024 3:43 PM CDT Comment:Left back mass-pt. H as history of breast cancer All Og MD PATHOLOGY[facility] [address] [place] [address], * US BACK SOFT TISSUE LOWER (06/09/2024 1:11 PM CDT) Anatomical Region Laterality Modality Ultrasound 06/09/2024 2:29 PM CDT Narrative 06/09/2024 2:29 PM CDT For Patients: ??As a result of the Cures Act, medical imaging exams and procedure reports are released immediately into your electronic medical record. ??You may view this report before your referring provider. ??If you have questions, please contact your health care provider. Indication: Soft tissue mass Technique: Grayscale and color Doppler ultrasound of the left lower back subcutaneous tissues performed. Comparison: None Findings: Circumscribed oval soft tissue nodule within the subcutaneous fat measuring 1.2 x 1.9 x 0.6 cm. No internal vascularity. Impression: Benign subcutaneous nodule left lower back measuring 1.9 cm, probable lipoma. Dictated by Moncho Earl MD @ 06/09/2024 2:29:28 PM (Electronically Signed) Procedure Note Moncho Earl MD - 06/09/2024 For Patients: As a result of the Cures Act, medical imagingexams and procedure reports are released immediately into your electronicmedical record. You may view this report before your referring provider.If you have questions, please contact your health care provider. Indication: Soft tissue mass Technique: Grayscale and color Doppler ultrasound of the left lower back subcutaneoustissues performed. Comparison: None Findings: Circumscribed oval soft tissue nodule within the subcutaneous fatmeasuring 1.2 x 1.9 x 0.6 cm. No internal vascularity. Impression: Benign subcutaneous nodule left lower back measuring 1.9 cm, probablelipoma. Dictated by Moncho Earl MD @ 06/09/2024 2:29:28 PM (Electronically Signed) Joannapancho Bran DO US * FACTORY MANAGER THIN PREP PAP SCREEN IMAGED (09/07/2020 9:01 AM CDT) Case Report Gynecologic Cytology Report ? Case: [id number] ? Authorizing Provider: ??Celi Dickinson PA ?Collected: ? 09/07/2020 0901 ? Ordering Location: ? [facility] ?? Received: ?09/07/2020 0950 ? Clinic ? First Screen: ?Jose Beyer ? Rescreen: ?Linsey Rooney ? Specimen: ?FACTORY MANAGER ThinPrep Vial Screening, Cervical ? 09/14/2020 2:42 PM TRANSIT MECHANIC [employer] [facility] INTERPRETATION/ RESULT NEGATIVE FOR INTRAEPITHELIAL LESION OR MALIGNANCY (NIL) (none) 09/14/2020 2:42 PM TRANSIT MECHANIC [employer] [facility] IMEN ADEQUACY Satisfactory for evaluation Endocervical component present 09/14/2020 2:42 PM TRANSIT MECHANIC [employer] [facility] HPV REQUEST HPV and PAP 09/14/2020 2:42 PM TRANSIT MECHANIC [employer] [facility] Date of LMP 08/26/20 09/14/2020 2:42 PM TRANSIT MECHANIC [facility] Last Pap Date 06/04/15 09/14/2020 2:42 PM TRANSIT MECHANIC [facility] Last Pap Result NIL 0 2:42 PM TRANSIT MECHANIC [facility] Abnormal Pap or [place] Bx in last 5 years No 09/14/2020 2:42 PM TRANSIT MECHANIC [facility] Menstrual Status Regular Periods 09/14/2020 2:42 PM TRANSIT MECHANIC [facility] [place] Bx Done Today No 09/14/2020 2:42 PM TRANSIT MECHANIC [facility] Additional Information None given 09/14/2020 2:42 PM TRANSIT MECHANIC [facility] Comment: Cytology is screened at [facility] - [address], [place] [address] and [facility] - [address], [place] [address] and [facility] - [address] [place] [address] Interpreted at [facility] - [address], [place] [address] Automated Review Successful 09/14/2020 2:42 PM TRANSIT MECHANIC [facility] Comment:Specimen processed s uccessfully by automated food vendor device, ThinPrep Imaging System, [employer] ANCILLARY TESTING FACTORY MANAGER HPV Ordered, Please see separate report 09/14/2020 2:42 PM TRANSIT MECHANIC [facility] Note The pap test is a screening technique, not a diagnostic procedure. It is used primarily to screen for squamous cancers and precursor lesions. Published studies have shown that it is subject to both false negative and false positive results. The pap test should not be used as the sole means to diagnose or exclude pre-malignant and malignant lesions. 09/14/2020 2:42 PM TRANSIT MECHANIC [facility] Other (Cervical) Non-Blood / Unknown 09/07/2020 9:01 AM CDT 09/07/2020 9:50 AM CDT Celi [place] PATHOLOGY/CYTOLOGY [facility] [address] [place] [address], [place] * ANTI HCV (08/15/2011 1:17 PM CDT) ANTI HCV Non-reacti ve [facility] Blood specimen (specimen) BLOOD SPECIMEN / Unknown 08/15/2011 1:17 PM CDT 08/15/2011 1:11 PM CDT Belen Latif MD SEND OUTS [facility] [place]NAL ZIP [address] [address] * ANTI HIV 1/2 (08/15/2011 1:17 PM CDT) [facility] (specimen) BLOOD SPECIMEN / Unknown 08/15/2011 1:17 PM CDT 08/15/2011 1:11 PM CDT Belen Latif MD SEND OUTS [facility] INTERNAL ZIP [address] [address] from Last 3 Months or Most Recently Relevant to Health Maintenance Advance Directives * Full Code (Latest Code Status on File) Date Activated Date Inactivated Comments 11/07/2023 11:17 AM 11/07/2023 5:48 PM Question Answer Comments Code Status Discussion: Reviewed Preferences * Full Code Date Activated Date Inactivated Comments 10/29/2023 8:31 AM 10/29/2023 4:47 PM Question Answer Comments Code Status Discussion: Reviewed Preferences * Full Code Date Activated Date Inactivated Comments 01/23/2020 6:45 AM 01/23/2020 2:11 PM * Full Code Date Activated Date Inactivated Comments 01/23/2020 6:45 AM 01/23/2020 6:45 AM * Full Code Date Activated Date Inactivated Comments 01/09/2020 8:55 AM 01/09/2020 5:18 PM Question Answer Comments Code Status Discussion: Not Discussed Care Teams Mixing Plant Operator Relationship Specialty Start Date End Date Joanna Bran DO [facility] [place] [address] PCP - General Family Practice 08/31/23 Melita Chilel, OSCAR [address] [place] [address] Nurse Navigator - Oncology Registered Nurse 10/03/23 Nathalie Andrews MD [address] [place] [address] Surgery - General 10/03/23 Petrona Shannon RN [address] [place] [address] Nurse Navigator - Oncology Registered Nurse 11/02/23 Zeny Kaur MD [address] [place] [address] Medical Oncologist Oncology 11/22/23 Karen Leon, CARLOS [address] [place] [address] Nurse Practitioner Oncology 11/22/23 [place], Nixon A, [address] [address] Wind Project Manager Oncology 11/22/23
--- OUTSIDE RECORDS SUMMARY | 2024-08-12 06:11 | XMS_ITS | Referral Summary ---
Author Organization [facility] Address [address] [place] [address] Care Team Providers Care Sales Floor Associate Name Role Phone Unavailable Primary Care Provider Unavailabl e Source Comments Patient records contain information from all sites at [facility]. For routine questions regarding patient records, call [phone] during business hours, M-F 8:00 AM - 5:00 PM Central Time. Record requests for emergency care only can be directed to [phone] at any time.[facility] Allergies Active Allergy Reactions Criticality Noted Date Comments Spironolactone Other (see comments) 08/02/2010 Medications Medication Sig Dispensed Refills Start Date End Date Status mometasone (ELOCON) 0.1 % cream Apply 1 Application topically 2 (two) times a day. Apply to left breast twice daily starting first day of radiation treatment. Continue for 2 weeks following the completion of radiation treatment. 100 g 11/30/2023 Active fluticasone propionate (FLONASE) 50 mcg/actuation nasal spray SPRAY 2 SPRAYS INTO EACH NOSTRIL ONCE A DAY FOR 1 WEEK THEN MAY ADJUST TO 1 TO 2 SPRAYS IN EACH NOSTIL ONCE A DAY 11/11/2022 Active Lactobacillus rhamnosus GG (CULTURELLE) 10 billion cell capsule Take 1 capsule by mouth daily. 09/12/2017 Active loratadine (CLARITIN) 10 mg tablet Take 10 mg by mouth. 01/09/2023 Acti ve medroxyPROGESTERone (Provera) 10 mg tablet Take 1 tablet by mouth daily. 09/25/2013 Active metroNIDAZOLE (METROGEL) 0.75 % (37.5mg/5 gram) vaginal gel INSERT 1 APPLICATOR FULL VAGINALLY EVERY DAY FOR 5 DAYS 09/07/2023 Active multivitamin tablet Take 1 tablet by mouth daily. 06/03/2019 Active tamoxifen (NOLVADEX) 20 mg tablet Take 1 tablet by mouth daily. 11/26/2023 Active Active Problems Problem Noted Date Diagnosed Date Malignant Neoplasm Of Breast Lower Outer Quadrant Female Left 10/08/2023 Cancer Staging:Pathologic stage from 10/29/2023:Stage IA(pT1b, pN0(sn), cM0, G1, ER+, UT+, HER2-, Oncotype DX score: 19) - Unsigned Immunizations Name Administration Dates Next Due Influenza Split 08/12/2012 Tdap 08/12/2012,05/12/2011 Social History Tobacco Use Types Packs/Day Years Used Date Smoking Tobacco: Former Cigarettes 0.3 8 2 003 - 2010 Smokeless Tobacco: Never Tobacco Cessation:Counseling Given: Not Answered Alcohol Use Standard Drinks/Week Comments Not Currently 0 (1 standard drink = 0.6 oz pur e alcohol) [facility] [employer] Answer Date Recorded In the past 12 months has e [employer], [employer], oil, or water [employer] threatened to shut off services in your [...] money to buy more. Never true 11/25/19 24 Within the past 12 months, t he [...] your living situation today? I have a [facility] place to live 11/25/2023 Sex and Gender Information Value Date Recorded Sex Assigned at Female 11/25/2023 8:25 PM REFINING STILL OPERATOR Gender Identity Female 11/25/2023 8:25 PM REFINING STILL OPERATOR Sexual Orientation Straight 11/25/2023 8: 25 PM REFINING STILL OPERATOR Last Filed Vital Signs Vital Sign Reading Time Taken Comments Blood Pressure 113/68 11/30/2023 8:52 AM REFINING STILL OPERATOR Pulse 84 11/30/2023 8:52 AM REFINING STILL OPERATOR Temperature 37 ??C (98.6 ??F) 01/02/2024 8:51 AM REFINING STILL OPERATOR Respiratory Rate 16 09/25/2013 5:08 PM REFINING STILL OPERATOR Oxygen Saturation - - Inhaled Oxygen Concentration - - Weight 101 kg (222 lb 10.6 oz) 01/02/2024 8:51 A M REFINING STILL OPERATOR Height 177.5 cm (5' 9.88) 09/25/2013 9:40 AM CS T Body Mass Index - - Plan of Treatment Not on file Procedures Procedure Name Priority Date/Time Associated Diagnosis Comments OUTSIDE MG MAMMOGRAM Routine 10/29/2023 12:10 PM REFINING STILL OPERATOR from Last 3 Months or Most Recently Relevant to Health Maintenance Results * XR BREAST SPECIMEN LEFT-Outside Mammogram (10/29/2023 12:10 PM REFINING STILL OPERATOR) Narrative [facility] - 11/19/2023 1:14 PM REFINING STILL OPERATOR This order has been created and auto-finalized to support the import of outside images. If available, original interpretation can be found on the Media Tab in Chart Review, in Document Viewer, or as an image in QREADS. If a re-interpretation or overread is required please follow defined workflow. ?? Provider Not In System IMG BI PROCEDURES [facility] NA from Last 3 Months or Most Recently Relevant to Health Maintenance
--- OUTSIDE RECORDS SUMMARY | 2024-08-12 06:11 | XMS_ITS ---
Author Organization [facility] Address [address] [place] [address] Care Team Providers Care Computer Console Operator Name Role Phone Unavailable Primary Care Provider Unavailabl e Active Problems Problem Noted Date Diagnosed Date Malignant Neoplasm Of Breast Lower Outer Quadrant Female Left 10/08/2023 Cancer Staging:Pathologic stage from 10/29/2023:Stage IA(pT1b, pN0(sn), cM0, G1, ER+, [place]+, HER2-, Oncotype DX score: 19) - Unsigned Current Oncology Plans No current plan information found. Past Plans No past plan information found. Radiation Treatments * Plan Last Treated On Elapsed Days Fractions Treated Prescribed Fraction Dose Prescribed Total Dose [id number] 01/04/2024 25 4 of 4 250 cGy 1,000 cG y [id number] 12/31/2023 21 15 of 15 267 cGy 4,005 cGy Reference Point Last Treated On Elapsed Days Session Dose Total Dose [id number] 01/04/2024 25 250 cGy 5,005 cGy
--- OUTSIDE RECORDS SUMMARY | 2024-08-12 06:11 | XMS_ITS | Clinical Summary ---
Author Organization [facility] Address [address] [place] [address] Care Team Providers Care Mechanical Engineering Intern Name Role Phone Unavailable Primary Care Provider Unavailabl e Source Comments Patient records contain information from all sites at [facility]. For routine questions regarding patient records, call [phone] during business hours, M-F 8:00 AM - 5:00 PM Central Time. Record requests for emergency care only can be directed to [phone] at any time.[facility] Allergies Active Allergy Reactions Criticality Noted [...] from 10/29/2023:Stage IA(pT1b, pN0(sn), cM0, G1, ER+, [place]+, HER2-, Oncotype DX score: 19) - Unsigned [...] drink = 0.6 oz pur e alcohol) [facility] [employer] Answer Date Recorded In the past 12 months has e [employer], gas, oil, or water [employer] threatened to shut off services in your [...] Date Recorded Employment status Working with temporary [employer] 11/25/2023 Housing Stability Answer Date Recorded What is your living situation today? I have a [facility] place to live 11/25/2023 Sex and Gender Information Value Date Recorded Sex Assigned at Female 11/25/2023 8:25 PM TUNNEL ELASTIC OPERATOR LOCKSTITCH Gender Identity Female 11/25/2023 8:25 PM TUNNEL ELASTIC OPERATOR LOCKSTITCH Sexual Orientation Straight 11/25/2023 8: 25 PM TUNNEL ELASTIC OPERATOR LOCKSTITCH Last Filed Vital Signs Vital Sign Reading Time Taken Comments Blood Pressure 113/68 11/30/2023 8:52 AM TUNNEL ELASTIC OPERATOR LOCKSTITCH Pulse 84 11/30/2023 8:52 AM TUNNEL ELASTIC OPERATOR LOCKSTITCH Temperature 37 ??C (98.6 ??F) 01/02/2024 8:51 AM TUNNEL ELASTIC OPERATOR LOCKSTITCH Respiratory Rate 16 09/25/2013 5:08 PM TUNNEL ELASTIC OPERATOR LOCKSTITCH Oxygen Saturation - - Inhaled Oxygen Concentration - - Weight 101 kg (222 lb 10.6 oz) 01/02/2024 8:51 A M TUNNEL ELASTIC OPERATOR LOCKSTITCH Height 177.5 cm (5' 9.88) 09/25/2013 9:40 AM CS T Body Mass Index - - Plan of Treatment Health Maintenance Due Date Last Done Comments HIV Screening 1980 Hepatitis C Screening 1980 Pneumococcal vaccine (0-64 years) (1 of 2 - PCV) 1986 Hepatitis B Vaccines (1 of 3 - 19+ 3-dose series) 1999 Zoster Vaccines (1 of 2) 1999 Cervical Cancer Screening 08/12/20152011 (Performed elsewhere) COVID-19 Vaccine (3 - Pfizer risk series) 05/03/2021 04/05/2021, 03/03/2021 Depression Screening (Annual PHQ-2) 11/12/2023 Influenza Vaccine (#1) 2024 , 08/21/2022, 08/21/2022, Additional history exists Mammogram 10/29/2024 10/29/2023, 10/12, 10/02/2023, Additional history exists Lipid (Cholesterol) Screening 09/14/2028 09/14/2023, 09/13/2021, 09/07/2020 DTaP,Tdap,and Td Vaccines (5 - Td or Tdap) 11/28/2028 11/28/2018, 03/04/2015, 08/12/2012, Additional history exists HPV Vaccines Aged Out No longer eligi ble based on patient's age to complete this topic Procedures Procedure Name Priority Date/Time Associated Diagnosis Comments OUTSIDE MG MAMMOGRAM Routine 10/29/2023 12:10 PM TUNNEL ELASTIC OPERATOR LOCKSTITCH from Last 3 Months or Most Recently Relevant to Health Maintenance Results * XR BREAST SPECIMEN LEFT-Outside Mammogram (10/29/2023 12:10 PM TUNNEL ELASTIC OPERATOR LOCKSTITCH) Narrative [facility] - 11/19/2023 1:14 PM TUNNEL ELASTIC OPERATOR LOCKSTITCH This order has been created and auto-finalized [...]
--- OUTSIDE RECORDS SUMMARY | 2024-08-12 06:11 | XMS_ITS ---
Author Organization [facility] Address [address] [place] [address] Care Team Providers Care Harbor Department Manager Name Role Phone Unavailable Unavailable Unavailable Surgery Details Not on file Complications Check Surgery Details section. Procedure Estimated Blood Loss Check Surgery Details section. Procedure Findings Check Surgery Details section. Procedure Specimens Taken Check Surgery Details section.
[2024-08-12] MEDS: SODIUM CHLORIDE 0.9 % (FLUSH) 10 ML SYRINGE IVF (06:18)
[2024-08-12] MEDS: LACTATED RINGERS 1000 ML 1,000 ML 100 ML IV (06:19)
[2024-08-12 06:22] VITALS: BP 122/86; PULSE 76; RESP 16; TEMP 36.7; O2SAT 97; BMI 33.3
[2024-08-12 06:33] LABS: Ur HCG Qualitative* Negative (Negative)
--- NOTE | 2024-08-12 07:14 | W.PM.H&PU ---
History & Physical Update History & Physical Update H&P Reviewed and patient assessed: No changes noted
[2024-08-12] MEDS: BUPIVACAINE 0.5% 30 ML INJECTION (07:46)
[2024-08-12 08:15] VITALS: BP 106/68; PULSE 71; RESP 16; TEMP 36.4; O2SAT 98
--- NOTE | 2024-08-12 08:18 | P.PCN_ITS ---
Procedure Note Time Seen by Provider: 08:18 Date Seen: 08/12/24 Date of procedure: 08/12/24 Will [facility] bill your pro fee for this procedure?: Yes Procedure: Preoperative Diagnosis: 43-year-old with left labia majora cyst. Postoperative diagnosis: Same Procedure: Left vulvar cyst excision Anesthesia: MAC, local Surgeon: Cici Sanchez MD IV fluid: 500 mL Urine output: 130 mL Estimated blood loss: 8 mL Drains: None Specimen: Left vulvar cyst to pathology Findings: On exam under anesthesia the patient has a soft palpable would appears to be cystic mass measuring approximately 3 x 3 cm the left labia majus that is more superficial than a Bartholin's cyst. No erythema, induration or purulent drainage. Procedure: The patient was taken to the operating room where conscious sedation was found be adequate. She is placed in the dorsal lithotomy position and prepped and draped in a normal sterile manner. 0.5% Marcaine with epinephrine was injected superficially over the labial mass, 10 mL used. A vertical, islet skin incision was made over the mass measuring approximately 4 cm in length. The skin incision was undermined with Metzenbaum scissors and the palpable mass removed. This was mostly fatty tissue. No specific cyst was identified. The subcutaneous tissue was then re approximated using 2-0 Vicryl sutures in interrupted manner. The skin was reapproximated using 3-0 Vicryl in running subcuticular manner. Sponge, lap and instrument counts were correct x2 at the end of the procedure. The patient was awakened from anesthesia and taken to the recovery area in stable condition.
--- NOTE | 2024-08-12 08:18 | W.ANESCHARGE ---
Anesthesia Charges Start Date/Time Anesthesia Start Date: 08/12/24 Anesthesia Start Time: 07:28 Stop Date/Time Anesthesia Stop Date: 08/12/24 Anesthesia Stop Time: 08:18
[2024-08-12 08:30] VITALS: BP 104/70; PULSE 72; RESP 16; O2SAT 98
[2024-08-12 08:45] VITALS: BP 103/72; PULSE 71; RESP 16; TEMP 36.4; O2SAT 98
== END 2024-08-12 09:03 | disposition home or self-care (01) ==
PROVIDERS: PCP Family Medicine; Visit Provider Obstetrics & Gynecology
PROC: (CPT 56740; principal; 2024-08-12 07:30)
DX: N90.7 Vulvar cyst (principal)
CPT/HCPCS: 11426; 12042; 00940; 81025; 88305; J0665; J1885; J2250; J2405; J2704; J3010; J7120

== ENCOUNTER 2024-09-11 11:20 | Outpatient (CLI) | payer BC, SELFPAY ==
--- OUTSIDE RECORDS SUMMARY | 2024-09-11 11:22 | XMS_ITS ---
Author Organization [facility] Address [address] [place] [address] Care Team Providers Care Checkman Name Role Phone Unavailable Unavailable Unavailable Surgery Details Not on file Complications Check Surgery Details section. Procedure Estimated Blood Loss Check Surgery Details section. Procedure Findings Check Surgery Details section. Procedure Specimens Taken Check Surgery Details section.
--- OUTSIDE RECORDS SUMMARY | 2024-09-11 11:22 | XMS_ITS ---
Author Organization [facility] Address [address] [place] [address] Care Team Providers Care Log Buncher Name Role Phone Unavailable Primary Care Provider Unavailabl e Active Problems * This document contains information received from the source organization and may not represent a complete record from that organization. Problem Noted Date Diagnosed Date Malignant Neoplasm Of Breast Lower Outer Quadrant Female Left 10/08/2023 Cancer Staging:Pathologic stage from 10/29/2023:Stage IA(pT1b, pN0(sn), cM0, G1, ER+, NV+, HER2-, Oncotype DX score: 19) - Unsigned Current Oncology Plans No current plan information found. Past Plans No past plan information found. Radiation Treatments * Plan Last Treated On Elapsed Days Fractions Treated Prescribed Fraction Dose Prescribed Total Dose [id number] 01/04/2024 25 4 of 4 250 cGy 1,000 cG y [id number] 12/31/2023 21 15 of 15 267 cGy 4,005 cGy Reference Point Last Treated On Elapsed Days Session Dose Total Dose [id number] 01/04/2024 25 250 cGy 5,005 cGy
--- OUTSIDE RECORDS SUMMARY | 2024-09-11 11:22 | XMS_ITS | Clinical Summary ---
Author Organization [facility] Address [place], [place] [address] Care Team Providers Care Fish Bait Processing Supervisor Name Role Phone Yina Joanna Zaidi DO Primary Care Provider [phone] Melita Chilel RN Unavailable [phone] Nathalie Andrews MD Unavailable [phone] [facility] Unavailable Zney Kaur MD Unavailable Karen Leon FENCE MAKER Unavailable Nixon Felton Unavailable [phone] Allergies Active Allergy Reactions Criticality Noted [...] from 10/08/2023:Stage IA(cT1b, cN0, cM0, G1, ER+, OK+, HER2-) - Signed by Nathalie Andrews MD on 10/08/2023 Pathologic stage from 11/11/2023:Stage IA(pT1b, pN0(sn), cM0, G1, ER+, OK+, HER2-) - Unsigned Migraine with aura 09/14/2023 Menorrhagia 09/14/2023 Venous insufficiency 09/12/2017 Superficial thrombophlebitis 10/24/2012 PCOS (polycystic ovarian syndrome) 06/22/2009 Irregular menstrual cycle 03/13/2007 Obesity, unspecified 03/13/2007 Overview (03/13/2007): BMI 30.4 Resolved Problems Problem Noted Date Diagnosed Date Resolved Date abnormality affecting management of mother 03/16/2015 12/30/2019 Tobacco use disorder 03/13/2007 012 Encounters Date Type Department Care Team Description 09/10/2024 10:45 AM CDT Office Visit [facility] [address] [place] [address] Karen Leon NP Follow Up 09/10/2024 10:34 AM CDT - 09/10/2024 11:59 PM CDT Hospital Encounter [facility] [address] [place] [address] Karen Leon, CARLOS Malignant neoplasm of lower-outer quadrant of left breast of female, estrogen receptor positive (HC) (Primary Dx) 09/10/2024 Travel 09/05/2024 Travel 09/02/2024 Hospital/[facility] Telephone Encounter [facility] [address] [place] [address] Diana Mclaughlin RN Pre Procedure (PVP) 09/01/2024 Telephone [facility] [address] [place], [place] [id number] All Og MD Results (pathology) 08/28/2024 Telephone [facility] [address] [facility] [place] [address] Karen Leon NP Appointment 08/25/2024 2:30 PM CDT Office Visit [facility] [address] [place] [address] All Og MD Consult (Cyst on left breast ) 08/25/2024 Travel 08/21/2024 Travel 08/12/2024 Lab Requisition [facility] [phone] Cici Sanchez MD 08/11/2024 1:45 PM CDT Office Visit [facility] [address] [facility] [address] [place] [address] Nathalie Andrews MD Follow Up 08/11/2024 Travel 08/07/2024 8:19 AM CDT - 08/07/2024 11:59 PM CDT Hospital Encounter [facility] [address] [place] [address] Joanna Bran DO Breast pain; Malignant neoplasm of lower-outer quadrant of left breast of female, estrogen receptor positive (HC) 08/07/2024 Travel 07/31/2024 2:00 PM CDT Preop Visit [facility] [address] [place] [address] Joanna Bran DO Pre-Op Exam (08/12/[address] Newsome vulvar cyst removal. ) 07/31/2024 Travel 07/28/2024 Travel 07/17/2024 1:30 PM CDT Office Visit [facility] [address] [place] [address] Vinnie Palmer MD CV Vascular Est (1 month follow up; Venous insufficiency. CTA and U/S scheduled prior. ) 07/17/2024 8:59 AM CDT - 07/17/2024 11:59 PM CDT Hospital Encounter [facility] [address] [place] [address] Vinnie Palmer MD Venous insufficiency 07/17/2024 Orders Only [facility] [address] [place] [address] Vinnie Palmer MD <No scans attached> 07/17/2024 Travel 07/14/2024 Travel 07/01/2024 Telephone [facility] [address] [place] [address] All Og MD Results 06/26/2024 Telephone [facility] [address] [place] [address] Karen Leon, CARLOS 06/23/2024 2:30 PM CDT Office Visit [facility] [address] [place] [address] All Og MD Consult (Lump on back.) 06/23/2024 Travel 06/21/2024 Travel 06/12/2024 9:00 AM CDT Office Visit [facility] [address] [place] [address] Vinnie Palmer MD CV Vascular Est (follow up; new /reocurring symptoms-see phone note. U/S scheduled for 06/09/2024,) 06/12/2024 Travel from Last 3 Months Immunizations Name Administration Dates Next Due COVID-19 vaccine ([employer]Counter-Bio NTech 30mcg/0.3mL) LIZETTE MURCIA 04/05/2021,03/03/2021 Influenza Virus, Unspecified 08/21/2022, 10/05/2014,08/21/2013,2011 Influenza, IIV3 (Age 6-35 mos) 10/05/2014 Influenza, IIV3 (Age >=3 years) 08/21/2013,09/06,08/15/2011 Influenza, IIV4 08/09/2021,,07/22/2019,2017,08/01/2017,08/01/2016,10/26/2015 Influenza, IIV4 (=>6mos) MDV 08/21/2022 Tdap 11/28/2018, [...] 0 09/13/2022 Social Connections Answer Date Recorded Do you often feel lonely or isolated from those around you? 0 06/01/2024 Financial Resource Strain Answer Date R ecorded Difficulty of Paying Living Expenses 3 06/01/2024 Difficulty of Paying Living Expenses Not on file 06/01/2024 Food Insecurity Answer Date Recorded Do you worry your food will run out before you are able to buy more? 1 06/01/2024 Transportation Needs Answer Date Record ed Does lack of transportation keep you from medica l appointments? 1 06/01/2024 Does lack of transportation keep you from work, meetings or getting things that you need? 1 06/01/2024 Housing Stability Answer Date Recorded What is your housing situation today? 1 06/01/2024 Sex and Gender Information Value [...] Sign Reading Time Taken Comments Blood Pressure 114/77 09/10/2024 10:39 AM CDT Pulse 93 09/10/2024 10:39 AM CDT Temperature 36.7 ??C (98.1 ??F) 09/10/2024 1 0:39 AM CDT Respiratory Rate 17 09/10/2024 10:3 9 AM CDT Oxygen Saturation 96% 09/10/2024 10: 39 AM CDT Inhaled Oxygen Concentration - - Weight 101.7 kg (224 lb 4.8 oz) 024 10:39 AM CDT Height 175.3 cm (5' 9) 08/11/2024 1:44 PM CDT Body Mass Index 33.12 08/11/2024 1:44 PM CDT Plan of Treatment Upcoming Encounters Date Type Department Care Team (Late st Contact Info) Description 12/03/2024 11:15 AM CHIEF COUNSEL Office Visit [facility] [address] [place] [address] Karen Leon, FENCE MAKER [address] [place] [address] 12/03/2024 11:45 AM CHIEF COUNSEL Appointment [facility] [address] [place] [address] 02/25/2025 10:30 AM CDT Office Visit [facility] [address] [address] Ayde Bartlett PA [address] [place] [address] 08/11/2025 10:15 AM CDT Appointment [facility] [address] [place] [address] 08/11/2025 10:45 AM CDT Office Visit [place] [address] [place] [address] Nathalie Andrews MD [address] [place] [address] Health Maintenance Due Date Last Done Comments Pneumococcal series for age 6-64 (1 of 2 - PCV) 1986 COVID-19 vaccine series (3 - Pfizer risk series) 05/03/2021 04/05/2021, 03/03/2021 Depression screening for age 12+ 09/13/2023 09/13/2022, 09/13/2021, 08/09/2021, Additional history exists Influenza for age 9-49 07/13/2024 , 08/21/2022, 08/09/2021, Additional history exists BMI (ht [...] Date/Time Associated Diagnosis Comments PATH TISSUE EXAM Routine 08/25/2024 2:52 PM CDT Breast skin changes LAB TRACKING EVENT Routine 08/12/2024 7: 51 AM CDT PATH TISSUE EXAM Routine 08/12/2024 7:51 AM CDT XR MAMMO ELICIA BILAT DIAG [facility] 08/07/2024 9:24 AM CDT Breast pain Malignant [...] 06/23/2024 3:30 PM CDT Soft tissue mass ELECTRICAL ENGINEERING DRAFTSPERSON THIN PREP PAP SCREEN IMAGED Routine 09/07/2020 9:01 AM CDT Screening for malignant neoplasm of cervix ANTI HIV 1/2 Routine 08/15/2011 1:17 PM CDT Screening examination for STD (sexually transmitted disease) ANTI HCV Routine 08/15/2011 1:17 PM CDT Screening examination for STD (sexually transmitted disease) from Last 3 Months or Most Recently Relevant to Health Maintenance Results * PATH TISSUE EXAM (08/25/2024 2:52 PM CDT) Only the most recent of3 resultswithin the time period is included. Case Report Pathology Report ?Case: [id number] ? Authorizing Provider: ??All Og MD ?Collected: ? 08/25/2024 1452 ? Ordering Location: ? [facility] ?? Received: ?08/25/2024 1540 ? Clinic ? Pathologist: ? Roslyn Arellano MD ? Specimen: ?Left Breast, single stitch superior, double stitch lateral--histor y of left breast ? cancer 2022 ? 08/27/2024 4:00 PM CDT [facility] Final Diagnosis A) LEFT BREAST SKIN, CYST, EXCISION: 1. Skin with epidermal inclusion cyst 2. Negative for malignancy 08/27/2024 4:00 PM CDT [facility] Clinical Information Cyst 08/27/2024 4:00 PM T [facility] Gross Description A) Received in formalin, unsliced, labeled with the patient's name and left inframammary cyst, is a 1 g, 1.9 x 0.8 cm ellipse pale-campbell oriented skin, excised to a depth of 0.8 cm. A short stitch is attached to the superior skin tip margin (re-designated 12:00) and a long stitch is attached to the lateral margin (re-designated 9:00). The margins are inked: 12 o'clock to 3 o'clock: Blue 3 o'clock to 6 o'clock: Green 6 o'clock to 9 o'clock: Red 9 o'clock to 12 o'clock: Yellow Cut surfaces disclose subcutaneous ill-defined fibrous campbell-white tissue not forming a discrete mass. Specimen is entirely submitted in 3 cassettes: 1. ??12:00 and 6:00 skin tip margins 2-3. Central sections, sequential 12:00 to 6:00 The specimen was removed from the patient at 1452 and placed unsliced in 10% neutral buffered formalin at 1452 on 08/25/2024. The specimen sat in formalin unsliced for 19 hours. (Please note: Cold ischemic time is greater than 60 minutes).?? The sliced specimen was fixed in formalin for a minimum of 6 hours and not longer than 72 hours. LDW 08/26/2024 08/27/2024 4:00 PM CDT [facility]- ENTRAL LAB[facility] Microscopic Description The final diagnosis is based on microscopic examination of appropriate sections of all specimens. 08/27/2024 4:00 PM CDT [facility] ENTRAL LABORATORY Additional Information Interpreted at [facility], Central Laboratory - [address] [facility] [address], [place] [address] 08/27/2024 4:00 PM CDT [facility]- ENTRAL LABORATORY Other (Left Breast) Non-Blood / Unknown 08/25/2024 2:52 PM CDT 08/25/2024 3:40 PM CDT All Og MD PATHOLOGY/CYTOLOGY Performing Organization Address [facility] Co de Phone Number [facility] [address] [place] [address], * LAB TRACKING EVENT (08/12/2024 7:51 AM CDT) Other (Other) Client Collect / Unknown 08/12/2024 7:51 AM CDT 08/12/2024 1:21 PM CDT Cici Sanchez MD LAB BILL O NLY [facility] LAB[facility]ORY [address] [place] [address], [place] * XR MAMMO ELICIA BILAT DIAG (08/07/2024 [...] Dictated by: Kaitlyn Mosqueda MD @08/07/2024 12:41:52 PM/CRL:jeimy PATIENTS: You will also receive a letter [...] provider. BILATERAL BREAST ULTRASOUND, 08/07/2024 PLEASE SEE [id number] FOR DIGITAL BILATERAL MAMMOGRAM SAME DAY. Joanna Bran DO US * US VENOUS INSUFFICIENCY LOWER EXTREMITY BILATERAL (07/17/2024 12:56 PM CDT) Anatomical Region Laterality Modality LEGS Ultrasound 07/17/2024 12:0 8 PM CDT Narrative 07/17/2024 8:23 PM CDT VASCULAR ULTRASOUND REPORT MAINE DOE Accession#: ?? [id number] : ?1980 Study Date: ?? 07/17/2024 12:08:49 PM Age: ?43 years ?? Tech: ? CAR Gender: F ?Referring MD: VINNIE PALMER Site: [facility] Study performed: ?Duplex US venous insufficiency, [...] left sapheno-femoral junction. 6. Incompetent varicose and/or network support veins as listed below. COMPARISON: Compared to [...] Accreditation Commission (IAC/Vascular), www.intersocietal.org/vascular Report generated by [employer]. ??Final ?? Procedure Note Gulshan Gallo MD - 07/17/2024 VASCULAR ULTRASOUND REPORT MAINE DOE : 1980 Study Date: 07/17/2024 12:08:49 PM Age: 43 years Tech: CAR Gender: F Referring MD: VINNIE PALMER Site: [facility] Study performed: Duplex US [...] left sapheno- femoraljunction. 6. Incompetent varicose and/or network support veins as listed below. COMPARISON: Compared to [...] theIntersocietal Accreditation Commission (IAC/Vascular),www.intersocietal.org/vascular Report generated by [employer]. Final Vinnie Palmer MD US * CT [...] For Patients: ??As a result of the Century Cures Act, [...] * (ABNORMAL) CREATININE,ISTAT (07/17/2024 9:53 AM CDT) CREATININE, POCT 0.90 0.57 - 1.11 mg/dL 07/17/2024 3:26 PM CDT [facility] TRAL LABORATORY Comment:Caution: Patients ta melvin Hydroxyurea have falsely increased iStat Creatinine results. Verify creatinine results ordering a Creatinine (33231.2) eGFR 82(L) >90 mL/min/1.7 3m2 07/17/2024 3:26 PM CDT [facility] Comment:As of 2022, eG FR is calculated by the CKD-EPI creatinine equation without race adjustment. eGFR can be influenced by muscle mass, exercise, and diet. The reported eGFR is an estimation only and is only applicable if the renal function is stable. Blood BLOOD SPECIMEN / Unknown 07/17/2024 9:53 AM CDT 07/17/2024 3:26 PM CDT Vinnie Palmer MD CHEMISTRY [facility] LAB[facility]ATORY [address] [place] [address], * ELECTRICAL ENGINEERING DRAFTSPERSON THIN PREP PAP SCREEN IMAGED (09/07/2020 9:01 AM CDT) Case Report Gynecologic Cytology Report ? Case: [id number] ? Authorizing Provider: ??Celi Dickinson PA ?Collected: ? 09/07/2020 0901 ? Ordering Location: ? [facility] ?? Received: ?09/07/2020 0950 ? Clinic ? First Screen: ?Jose Beyer ? Rescreen: ?Linsey Rooney ? Specimen: ?ELECTRICAL ENGINEERING DRAFTSPERSON ThinPrep Vial Screening, Cervical ? 09/14/2020 2:42 PM CHIEF COUNSEL [facility] INTERPRETATION/ RESULT NEGATIVE FOR INTRAEPITHELIAL LESION OR MALIGNANCY (NIL) (none) 09/14/2020 2:42 PM CHIEF COUNSEL [facility] Actions [facility]- ENTRAL LABORATORY IMEN ADEQUACY Satisfactory for evaluation Endocervical component present 09/14/2020 2:42 PM CHIEF COUNSEL [facility] HPV REQUEST HPV and PAP 09/14/2020 2:42 PM CHIEF COUNSEL [facility] Date of LMP 08/26/20 09/14/2020 2:42 PM CHIEF COUNSEL [facility] Last Pap Date 06/04/15 09/14/2020 2:42 PM CHIEF COUNSEL [facility] Last Pap Result NIL 0 2:42 PM CHIEF COUNSEL [facility] Abnormal Pap or [place] Bx in last 5 years No 09/14/2020 2:42 PM CHIEF COUNSEL [facility] Menstrual Status Regular Periods 09/14/2020 2:42 PM CHIEF COUNSEL [facility] [place] Bx Done Today No 09/14/2020 2:42 PM CHIEF COUNSEL [facility] Additional Information None given 09/14/2020 2:42 PM CHIEF COUNSEL [facility] Comment: Cytology is screened at [facility] - [address], [place] [address] and [facility] - [address], [place] [address] and [facility] - [address] [place] [address] Interpreted at [facility] - [address], [place] [address] Automated Review Successful 09/14/2020 2:42 PM CHIEF COUNSEL [facility] Comment:Specimen processed s uccessfully by automated senior economist device, ThinPrep Imaging System, [employer] ANCILLARY TESTING ELECTRICAL ENGINEERING DRAFTSPERSON HPV Ordered, Please see separate report 09/14/2020 2:42 PM CHIEF COUNSEL [facility] Note The pap test is a screening technique, not a diagnostic procedure. It is used primarily to screen for squamous cancers and precursor lesions. Published studies have shown that it is subject to both false negative and false positive results. The pap test should not be used as the sole means to diagnose or exclude pre-malignant and malignant lesions. 09/14/2020 2:42 PM CHIEF COUNSEL [facility] Other (Cervical) Non-Blood / Unknown 09/07/2020 9:01 AM CDT 09/07/2020 9:50 AM CDT C[facility] PATHOLOGY/CYTOLOGY Performing Organization Address City/State/[facility] Co de Phone Number [facility] [address] [place] [address], [place] * ANTI HCV (08/15/2011 1:17 PM CDT) ANTI HCV Non-reacti ve [facility] Blood specimen (specimen) BLOOD SPECIMEN / Unknown 08/15/2011 1:17 PM CDT 08/15/2011 1:11 PM CDT Belen Latif MD SEND OUTS [facility]ORATORY INTERNAL ZIP [address] [address] * ANTI HIV 1/2 (08/15/2011 1:17 PM CDT) ANTI HIV 1/2 Non-reacti ve [facility] Blood specimen (specimen) BLOOD SPECIMEN / Unknown 08/15/2011 1:17 PM CDT 08/15/2011 1:11 PM CDT Belen Latif MD SEND OUTS [facility]ORATORY INTERNAL ZIP [address] [address] from Last 3 Months or Most Recently [...] Code Status Discussion: Not Discussed Care Teams Fish Bait Processing Supervisor Relationship Specialty Start Date End Date Joanna Bran DO [address] [place] [address] PCP - General Family Practice 08/31/23 Melita Chilel, OSCAR [address] [place] [address] Nurse Navigator - Oncology Registered Nurse 10/03/23 Nathalie Andrwes MD [address] [place] [address] Surgery - General 10/03/23 Petrona Shannon RN [address] [place] [address] Nurse Navigator - Oncology Registered Nurse 11/02/23 Zeny Kaur MD [address] [place] [address] Medical Oncologist Oncology 11/22/23 Karen Leon, FENCE MAKER [address] [place] [address] Nurse Practitioner Oncology 11/22/23 Nixon Felton LSW [address] [place] [address] Oxyhydrogen Welder Oncology 11/22/23
--- OUTSIDE RECORDS SUMMARY | 2024-09-11 11:22 | XMS_ITS | Referral Summary ---
Author Organization [facility] Address [address] [place] [address] Care Team Providers Care Women'S Lacrosse Coach Name Role Phone Unavailable Primary Care Provider Unavailabl e Source Comments Patient records contain information from all sites at [facility]. For routine questions regarding patient records, call [phone] during business hours, M-F 8:00 AM - 5:00 PM Central Time. Record requests for emergency care only can be directed to [phone] at any time.[facility] Allergies Active Allergy Reactions Criticality Noted Date Comments Spironolactone Other (see comments) 08/02/2010 Medications * This document contains information received from the source organization and may not represent a complete record from that organization. mometasone (ELOCON) 0.1 % cream Apply 1 Application topically 2 (two) times a day. Apply to left breast twice daily starting first day of radiation treatment. Continue for 2 weeks following the completion of radiation treatment. 100 g 4 Active fluticasone propionate (FLONASE) 50 mcg/actuation nasal spray SPRAY 2 SPRAYS INTO EACH NOSTRIL ONCE A DAY FOR 1 WEEK THEN MAY ADJUST TO 1 TO 2 SPRAYS IN EACH NOSTIL ONCE A DAY 2 Active Lactobacillus rhamnosus GG (CULTURELLE) 10 billion cell capsule Take 1 capsule by mouth daily. 7 Active loratadine (CLARITIN) 10 mg tablet Take 10 mg by mouth. 3 Active medroxyPROGESTE Clint (Provera) 10 mg tablet Take 1 tablet by mouth daily. 3 Active metroNIDAZOLE (METROGEL) 0.75 % (37.5mg/5 gram) vaginal gel INSERT 1 APPLICATOR FULL VAGINALLY EVERY DAY FOR 5 DAYS 3 Active multivitamin tablet Take 1 tablet by mouth daily. 9 Active tamoxifen (NOLVADEX) 20 mg tablet Take 1 tablet by mouth daily. 4 Active Active Problems Problem Noted Date Diagnosed Date Malignant Neoplasm Of Breast Lower Outer Quadrant Female Left 10/08/2023 Cancer Staging:Pathologic stage from 10/29/2023:Stage IA(pT1b, pN0(sn), cM0, G1, ER+, DE+, HER2-, Oncotype DX score: 19) - Unsigned [...] 0.6 oz pur e alcohol) [facility] Rankerities Answer Date Recorded In the past 12 months has [employer], oil, or water [employer] threatened to shut off services in your [...] your living situation today? I have a [employer] place to live 11/25/2023 Comments Unknown Sex and Gender Information Value Date Recorded Sex Assigned at Female 11/25/2023 8:25 PM PRINTING ESTIMATOR Legal Sex Female 5:52 PM PRINTING ESTIMATOR Gender Identity Female 11/25/2023 8:25 PM PRINTING ESTIMATOR Sexual Orientation Straight 11/25/2023 8: 25 PM PRINTING ESTIMATOR Last Filed Vital Signs Vital Sign Reading Time Taken Comments Blood Pressure 113/68 11/30/2023 8:52 AM PRINTING ESTIMATOR Pulse 84 11/30/2023 8:52 AM PRINTING ESTIMATOR Temperature 37 ??C (98.6 ??F) 01/02/2024 8:51 AM PRINTING ESTIMATOR Respiratory Rate 16 09/25/2013 5:08 PM PRINTING ESTIMATOR Oxygen Saturation - - Inhaled Oxygen Concentration - - Weight 101 kg (222 lb 10.6 oz) 01/02/2024 8:51 A M PRINTING ESTIMATOR Height 177.5 cm (5' 9.88) 09/25/2013 9:40 AM CS T Body Mass Index - - Plan of Treatment Not on file Procedures Procedure Name Priority Date/Time Associated Diagnosis Comments OUTSIDE MG MAMMOGRAM Routine 10/29/2023 12:10 PM PRINTING ESTIMATOR from Last 3 Months or Most Recently Relevant to Health Maintenance Results * XR BREAST SPECIMEN LEFT-Outside Mammogram (10/29/2023 12:10 PM PRINTING ESTIMATOR) Narrative [facility] - 11/19/2023 1:14 PM PRINTING ESTIMATOR This order has been created and auto-finalized to support the import of outside images. If available, original interpretation can be found on the Media Tab in Chart Review, in Document Viewer, or as an image in QREADS. If a re-interpretation or overread is required please follow defined workflow. ?? us Provider Not In System IMG BI PROCEDURES Final R esult [facility] NA from Last 3 Months or Most Recently Relevant to Health Maintenance Insurance [facility]
--- OUTSIDE RECORDS SUMMARY | 2024-09-11 11:22 | XMS_ITS | Clinical Summary ---
Author Organization [facility] Address [address] [place] [id number] Care Team Providers Care Corporate Executive Name Role Phone Unavailable Primary Care Provider Unavailabl e Source Comments Patient records contain information from all sites at [facility]. For routine questions regarding patient records, call [phone] during business hours, M-F 8:00 AM - 5:00 PM Central Time. Record requests for emergency care only can be directed to [phone] at any time.[facility] Allergies Active Allergy Reactions Criticality Noted [...] from 10/29/2023:Stage IA(pT1b, pN0(sn), cM0, G1, ER+, [place]+, HER2-, Oncotype DX score: 19) - Unsigned [...] drink = 0.6 oz pur e alcohol) [facility] Utilities Answer Date Recorded In the past 12 months has th e [employer], gas, oil, or water [employer] threatened to shut off services in your [...] Date Recorded Employment status Working with temporary [employer] 11/25/2023 Housing Stability Answer Date Recorded What is your living situation today? I have a [facility] place to live 11/25/2023 Comments Unknown Sex and Gender Information Value Date Recorded Sex Assigned at Female 11/25/2023 8:25 PM WIRELESS SALES ASSOCIATE Legal Sex Female 5:52 PM WIRELESS SALES ASSOCIATE Gender Identity Female 11/25/2023 8:25 PM WIRELESS SALES ASSOCIATE Sexual Orientation Straight 11/25/2023 8: 25 PM WIRELESS SALES ASSOCIATE Last Filed Vital Signs Vital Sign Reading Time Taken Comments Blood Pressure 113/68 11/30/2023 8:52 AM WIRELESS SALES ASSOCIATE Pulse 84 11/30/2023 8:52 AM WIRELESS SALES ASSOCIATE Temperature 37 ??C (98.6 ??F) 01/02/2024 8:51 AM WIRELESS SALES ASSOCIATE Respiratory Rate 16 09/25/2013 5:08 PM WIRELESS SALES ASSOCIATE Oxygen Saturation - - Inhaled Oxygen Concentration - - Weight 101 kg (222 lb 10.6 oz) 01/02/2024 8:51 A M WIRELESS SALES ASSOCIATE Height 177.5 cm (5' 9.88) 09/25/2013 9:40 AM CS T Body Mass Index - - Plan of Treatment Health Maintenance Due Date Last Done Comments HIV Screening 1980 Hepatitis C Screening 1980 Pneumococcal vaccine (0-64 years) (1 of 2 - PCV) 1986 Hepatitis B Vaccines (1 of 3 - 19+ 3-dose series) 1999 Zoster Vaccines (1 of 2) 1999 Cervical/Vaginal Cancer Screening 08/12/2015 08/12/2012 (Performed elsewhere) COVID-19 Vaccine (3 - Pfizer risk series) 05/03/2021 04/05/2021, 03/03/2021 Depression Screening (Annual PHQ-2) 11/12/2023 Influenza Vaccine (#1) 2024 2, 08/21/2022, 08/21/2022, Additional history exists Mammogram 10/29/2024 10/29/2023, 10/12, 10/02/2023, Additional history exists Lipid (Cholesterol) Screening 09/14/2028 09/14/2023, 09/13/2021, 09/07/2020 DTaP,Tdap,and Td Vaccines (5 - Td or Tdap) 11/28/2028 11/28/2018, 03/04/2015, 08/12/2012, Additional history exists HPV Vaccines Aged Out No longer eligi ble based on patient's age to complete this topic IPV Vaccines Aged Out No longer eligi ble based on patient's age to complete this topic Procedures Procedure Name Priority Date/Time Associated Diagnosis Comments OUTSIDE MG MAMMOGRAM Routine 10/29/2023 12:10 PM WIRELESS SALES ASSOCIATE from Last 3 Months or Most Recently Relevant to Health Maintenance Results * XR BREAST SPECIMEN LEFT-Outside Mammogram (10/29/2023 12:10 PM WIRELESS SALES ASSOCIATE) Narrative [facility] - 11/19/2023 1:14 PM WIRELESS SALES ASSOCIATE This order has been created and auto-finalized [...] Most Recently Relevant to Health Maintenance Insurance [facility]
--- NOTE | 2024-09-11 11:30 | CRLHL7_ITS ---
For Patients: As a result of the Century Cures Act, medical imaging exams and procedure reports are released immediately into your electronic medical record. You may view this report before your referring provider. If you have questions, please contact your health care provider. CLINICAL HISTORY: Left lower quadrant pain TECHNIQUE: 2D quiñones scale and color Doppler images were acquired of the pelvis using a transvaginal approach. FINDINGS: On transvaginal imaging, the myometrium has a heterogeneous echotexture. Cervical nabothian cysts are present. The uterus measures 7.7 x 4.2 x 5.1 cm. The endometrial lining appears normal and measures 2 mm in thickness. The left ovary measures 3.7 x 1.3 x 2.4 cm in size and the right ovary measures 3.5 x 2.5 x 2.4 cm. The ovaries demonstrate normal arterial and venous blood flow on color Doppler analysis. There are no suspicious fluid collections within the cul-de-sac. IMPRESSION: No abnormalities of the uterus or ovaries identified. Dictated by Moncho Earl MD @ 09/11/2024 12:33:15 PM (Electronically Signed)
== END 2024-09-11 11:21 | disposition home or self-care (01) ==
LOC: US 11:20
PROVIDERS: PCP Family Medicine; Visit Provider Obstetrics & Gynecology
DX: R10.32 Left lower quadrant pain (principal)
CPT/HCPCS: 76830

== ENCOUNTER 2024-10-07 15:35 | Outpatient (CLI) | payer BC, SELFPAY ==
--- OUTSIDE RECORDS SUMMARY | 2024-10-07 15:38 | XMS_ITS | Referral Summary ---
Author Organization [facility] Address [address] [place] [address] Care Team Providers Care Music Therapist Name Role Phone Unavailable Primary Care Provider Unavailabl e Source Comments Patient records contain information from all sites at [facility]. For routine questions regarding patient records, call [phone] during business hours, M-F 8:00 AM - 5:00 PM Central Time. Record requests for emergency care only can be directed to [phone] at any time.[facility] Allergies Active Allergy Reactions Criticality Noted Date [...] from 10/29/2023:Stage IA(pT1b, pN0(sn), cM0, G1, ER+, [place]+, HER2-, Oncotype DX score: 19) - Unsigned [...] e alcohol) [facility] [employer]ities Answer Date Recorded In the past 12 months has [employer], [employer], oil, or water [employer] threatened to shut off services in your [...] your living situation today? I have a [facility] place to live 11/25/2023 Comments Unknown Sex and Gender Information Value Date Recorded Sex Assigned at Female 11/25/2023 8:25 PM COUNTY JUDGE Legal Sex Female 5:52 PM COUNTY JUDGE Gender Identity Female 11/25/2023 8:25 PM COUNTY JUDGE Sexual Orientation Straight 11/25/2023 8: 25 PM COUNTY JUDGE Last Filed Vital Signs Vital Sign Reading Time Taken Comments Blood Pressure 113/68 11/30/2023 8:52 AM COUNTY JUDGE Pulse 84 11/30/2023 8:52 AM COUNTY JUDGE Temperature 37 C (98.6 F) 01/02/2024 8:51 AM COUNTY JUDGE Respiratory Rate 16 09/25/2013 5:08 PM COUNTY JUDGE Oxygen Saturation - - Inhaled Oxygen Concentration - - Weight 101 kg (222 lb 10.6 oz) 01/02/2024 8:51 A M COUNTY JUDGE Height 177.5 cm (5' 9.88) 09/25/2013 9:40 AM CS T Body Mass Index - - Plan of Treatment Not on file Procedures Procedure Name Priority Date/Time Associated Diagnosis Comments OUTSIDE MG MAMMOGRAM Routine 10/29/2023 12:10 PM COUNTY JUDGE from Last 3 Months or Most Recently Relevant to Health Maintenance Results * XR BREAST SPECIMEN LEFT-Outside Mammogram (10/29/2023 12:10 PM COUNTY JUDGE) Narrative [facility] - 11/19/2023 1:14 PM COUNTY JUDGE This order has been created and auto-finalized to support the import of outside images. If available, original interpretation can be found on the Media Tab in Chart Review, in Document Viewer, or as an image in QREADS. If a re-interpretation or overread is required please follow defined workflow. us Provider Not In System IMG BI PROCEDURES Final R esult [facility] NA from Last 3 Months or Most Recently Relevant to Health Maintenance Insurance [facility]
--- OUTSIDE RECORDS SUMMARY | 2024-10-07 15:38 | XMS_ITS | Clinical Summary ---
Author Organization [facility] Address [address] [place] [id number] Care Team Providers Care Dehydrogenation Converter Operator Name Role Phone Unavailable Primary Care Provider Unavailabl e Source Comments Patient records contain information from all sites at [facility]. For routine questions regarding patient records, call [phone] during business hours, M-F 8:00 AM - 5:00 PM Central Time. Record requests for emergency care only can be directed to [phone] at any time.[facility] Allergies Active Allergy Reactions Criticality Noted Date [...] from 10/29/2023:Stage IA(pT1b, pN0(sn), cM0, G1, ER+, [place]+, HER2-, Oncotype DX score: 19) - Unsigned [...] drink = 0.6 oz pur e alcohol) [facility] Utilities Answer Date Recorded In the past 12 months has th e [employer], gas, oil, or water [employer] threatened to shut off services in your [...] Date Recorded Employment status Working with temporary [employer] 11/25/2023 Housing Stability Answer Date Recorded What is your living situation today? I have a [facility] place to live 11/25/2023 Comments Unknown Sex and Gender Information Value Date Recorded Sex Assigned at Female 11/25/2023 8:25 PM BREAKER MECHANIC Legal Sex Female 5:52 PM BREAKER MECHANIC Gender Identity Female 11/25/2023 8:25 PM BREAKER MECHANIC Sexual Orientation Straight 11/25/2023 8: 25 PM BREAKER MECHANIC Last Filed Vital Signs Vital Sign Reading Time Taken Comments Blood Pressure 113/68 11/30/2023 8:52 AM BREAKER MECHANIC Pulse 84 11/30/2023 8:52 AM BREAKER MECHANIC Temperature 37 C (98.6 F) 01/02/2024 8:51 AM BREAKER MECHANIC Respiratory Rate 16 09/25/2013 5:08 PM BREAKER MECHANIC Oxygen Saturation - - Inhaled Oxygen Concentration - - Weight 101 kg (222 lb 10.6 oz) 01/02/2024 8:51 A M BREAKER MECHANIC Height 177.5 cm (5' 9.88) 09/25/2013 9:40 AM CS T Body Mass Index - - Plan of Treatment Health Maintenance Due Date Last Done Comments HIV Screening 1980 Hepatitis C Screening 1980 Pneumococcal vaccine (0-64 years) (1 of 2 - PCV) 1986 Hepatitis B Vaccines (1 of 3 - 19+ 3-dose series) 1999 Zoster Vaccines (1 of 2) 1999 HPV Vaccines (1 - Risk 3-dose SCDM series) 2007 Cervical/Vaginal Cancer Screening 08/12/2015 08/12/2012 (Performed elsewhere) COVID-19 Vaccine (3 - Pfizer risk series) 05/03/2021 04/05/2021, 03/03/2021 Depression Screening (Annual PHQ-2) 11/12/2023 Influenza Vaccine (#1) 2024 , 08/21/2022, 08/21/2022, Additional history exists Mammogram 10/29/2024 10/29/2023, 10/12, 10/02/2023, Additional history exists Lipid (Cholesterol) Screening 09/14/2028 09/14/2023, 09/13/2021, 09/07/2020 DTaP,Tdap,and Td Vaccines (5 - Td or Tdap) 11/28/2028 11/28/2018, 03/04/2015, 08/12/2012, Additional history exists IPV Vaccines Aged Out No longer eligi ble based on patient's age to complete this topic Procedures Procedure Name Priority Date/Time Associated Diagnosis Comments OUTSIDE MG MAMMOGRAM Routine 10/29/2023 12:10 PM BREAKER MECHANIC from Last 3 Months or Most Recently Relevant to Health Maintenance Results * XR BREAST SPECIMEN LEFT-Outside Mammogram (10/29/2023 12:10 PM BREAKER MECHANIC) Narrative [facility] - 11/19/2023 1:14 PM BREAKER MECHANIC This order has been created and auto-finalized [...] Most Recently Relevant to Health Maintenance Insurance [facility]
--- OUTSIDE RECORDS SUMMARY | 2024-10-07 15:38 | XMS_ITS ---
Author Organization [facility] Address [address] [place] [address] Care Team Providers Care Reinforcing Steel Worker Name Role Phone Unavailable Primary Care Provider [...] Treated Prescribed Fraction Dose Prescribed Total Dose [id number] 01/04/2024 25 4 of 4 250 cGy 1,000 cG y [id number] 12/31/2023 21 15 of 15 267 cGy 4,005 cGy Reference Point Last Treated On Elapsed Days Session Dose Total Dose [id number] 01/04/2024 25 250 cGy 5,005 cGy
--- OUTSIDE RECORDS SUMMARY | 2024-10-07 15:38 | XMS_ITS ---
Author Organization [facility] Address [address] [place] [address] Care Team Providers Care Lay Out Technician Name Role Phone Unavailable Unavailable Unavailable Surgery Details Not on file Complications Check Surgery Details section. Procedure Estimated Blood Loss Check Surgery Details section. Procedure Findings Check Surgery Details section. Procedure Specimens Taken Check Surgery Details section.
--- OUTSIDE RECORDS SUMMARY | 2024-10-07 15:39 | XMS_ITS | Clinical Summary ---
Author Organization [employer] [facility] Address [place], [place] [address] Care Team Providers Care Rotary Cutter Feeder Name Role Phone Yina Joanna Zaidi DO Primary Care Provider [phone] Melita Chilel RN Unavailable [phone] Nathalie Andrews MD [facility]available [facility] Zeny Kaur MD Unavailable Karen Leon UNEMPLOYMENT INSPECTOR Unavailable Nixon Felton Unavailable [phone] Allergies Active Allergy Reactions Criticality Noted [...] once daily. Active anastrozole (ARIMIDEX) 1 mg tabletIndications :Malignant neoplasm of lower-outer quadrant of left breast of female, estrogen receptor positive (HC) Take 1 Tablet (1 mg) by mouth once daily. 30 Tablet 11 02/26/2024 Active calcium carbonate/vitamin D3 (CALCIUM 500 + D, D3, ORAL) Take by mouth. Active leuprolide acetate (LUPRON DEPOT IM) Inject intramuscular. Every three months Active albuterol HFA (ProAir HFA) 90 mcg/actuation inhalerIndication s:PÉREZ (dyspnea on exertion) Inhale 1-2 Puffs by mouth every 6 hours if needed for Shortness of Breath 1st choice. 1 Each 09/19/2024 09/24/2024 Discontinued (*Med complete/Reg imen complete/Lev el of care change) famotidine (PEPCID) 20 mg tabletIndications :Abdominal pain, RUQ (right upper quadrant) Take 1 Tablet (20 mg) by mouth two times daily. 60 Tablet 09/21/2024 09/24/2024 Discontinued (*Patient states no longer taking) Active Problems Problem Noted Date Diagnosed Date Malignant neoplasm of lower- outer quadrant of left breast, estrogen receptor positive 10/08/2023 Cancer Staging:Clinical stage from 10/08/2023:Stage IA(cT1b, cN0, cM0, G1, ER+, MI+, HER2-) - Signed by Nathalie Andrews MD on 10/08/2023 Pathologic stage from 11/11/2023:Stage IA(pT1b, pN0(sn), cM0, G1, ER+, MI+, HER2-) - Unsigned Migraine with aura 09/14/2023 Menorrhagia 09/14/2023 Venous insufficiency 09/12/2017 Superficial thrombophlebitis 10/24/2012 PCOS (polycystic ovarian syndrome) 06/22/2009 Irregular menstrual cycle 03/13/2007 Obesity, unspecified 03/13/2007 Overview (03/13/2007): BMI 30.4 Resolved Problems Problem Noted Date Diagnosed Date Resolved Date abnormality affecting management of mother 03/16/2015 12/30/2019 Tobacco use disorder 03/13/2007 012 Encounters Date Type Department Care Team Description 10/02/2024 Telephone [facility] [address] [place] [address] Vinnie Palmer MD Procedure 09/24/2024 2:00 PM YOKE SETTER Office Visit [facility] [address] [place], [place] [phone] Joanna Bran, Physical (Still having left sided lower abdominal pain, was told it was not a cyst per ultrasound); Immunization/Injecti on 09/24/2024 Travel 09/23/2024 Orders Only [facility] [address] [place] [address] Veronica Ledezma PA 1 scan: (1-Ord) NFLD-EKG-09/19/24 09/21/2024 12:15 PM YOKE SETTER Office Visit [facility] [address] [place] [address] Amy Hussein NP Abdominal Pain (Bilateral upper stomach -Started Sunday ) 09/21/2024 Travel 09/19/2024 11:30 AM YOKE SETTER Ancillary Procedure [facility] [address] [place] [address] 09/19/2024 10:40 AM YOKE SETTER Office Visit [address] [address] Veronica Ledezma PA URI 09/19/2024 Travel 09/11/2024 Orders Only [facility] Scanner 1 scan: (1-Ord) [facility], PELVIC TRANSVAGINAL , 09/11/2024 09/10/2024 10:45 AM CDT Office Visit [facility] [address] [place] [address] Karen Leon, UNEMPLOYMENT INSPECTOR Follow Up 09/10/2024 10:34 AM CDT - 09/10/2024 11:59 PM CDT Hospital Encounter [facility] [address] [place] [address] Karen Leon, UNEMPLOYMENT INSPECTOR Malignant neoplasm of lower-outer quadrant of left breast of female, estrogen receptor positive (HC) (Primary Dx) 09/10/2024 Travel 09/05/2024 Travel 09/02/2024 Hospital/[facility] Telephone Encounter [facility] [address] [place] [address] Diana Mclaughlin, OSCAR Pre Procedure (PVP) 09/01/2024 Telephone [facility] [address] [facility] [place] [address] All Og MD Results (pathology) 08/28/[address] [address] Karen Leon, CARLOS Appointment 08/25/2024 2:30 PM CDT Office Visit [facility] [address] [place] [address] All Og MD Consult (Cyst on left breast ) 08/25/2024 Travel 08/21/2024 Travel 08/12/2024 Lab Requisition [facility] [phone] Cici Sanchez MD 08/11/2024 1:45 PM CDT Office Visit [facility] [address] [place] [address] Nathalie Andrews MD Follow Up 08/11/2024 Travel 08/07/2024 8:19 AM CDT - 08/07/2024 11:59 PM CDT Hospital Encounter [facility] [address] [place] [address] Joanna Bran DO Breast pain; Malignant neoplasm of lower-outer quadrant of left breast of female, estrogen receptor positive (HC) 08/07/2024 Travel 07/31/2024 2:00 PM CDT Preop Visit [facility] [address] [place] [address] Joanna Bran DO Pre-Op Exam (08/12/[address] Newsome vulvar cyst removal. ) 07/31/2024 Travel 07/28/2024 Travel 07/17/2024 1:30 PM CDT Office Visit [facility] [address] [place] [address] Vinnie Palmer MD CV Vascular Est (1 month follow up; Venous insufficiency. CTA and U/S scheduled prior. ) 07/17/2024 8:59 AM CDT - 07/17/2024 11:59 PM CDT Hospital Encounter [facility] [address] [place] [address] Vinnie Palmer MD Venous insufficiency 07/17/2024 Orders Only [facility] [address] [place] [address] Vinnie Palmer MD <No scans attached> 07/17/2024 Travel 07/14/2024 Travel from Last 3 Months Immunizations Name Administration Dates Next Due COVID-19 vaccine ([employer] 30mcg/0.3mL) PF, MDV 04/05/2021,03/03/2021 Influenza Virus, Unspecified 08/21/2022, 10/05/2014,08/21/2013,2011 Influenza, IIV3 (Age 6-35 mos) 10/05/2014 Influenza, IIV3 (Age >=3 years) 08/21/2013,09/06,08/15/2011 Influenza, IIV4 08/09/2021, 0,07/22/2019,2017,08/01/2017,08/01/2016,10/26/2015 Influenza, IIV4 (=>6mos) MDV 08/21/2022 Pneumococcal Conj 20-valent (Prevnar 20) 09/24/2024 Tdap 11/28/2018, 5,08/12/2012,2010 Family History Medical History [...] Answer Date Recorded PHQ-2 TOTAL SCORE 0 09/24/2024 Social Connections Answer Date Recorded Do you [...] Sign Reading Time Taken Comments Blood Pressure 97/66 09/24/2024 1:59 PM YOKE SETTER Pulse 80 09/24/2024 1:59 PM YOKE SETTER Temperature 36.9 C (98.5 F) 09/21/2024 12:52 PM YOKE SETTER Respiratory Rate 16 09/21/2024 12:52 PM YOKE SETTER Oxygen Saturation 96% 09/21/2024 12:52 PM YOKE SETTER Inhaled Oxygen Concentration - - Weight 100.7 kg (222 lb) 09/24/2024 1:59 PM YOKE SETTER Height 176.5 cm (5' 9.49) 09/24/2024 1:59 PM CS T Body Mass Index 32.32 09/24/2024 1:59 PM YOKE SETTER Plan of Treatment Upcoming Encounters Date Type Department Care Team (Late st Contact Info) Description 12/03/2024 11:15 AM YOKE SETTER Office Visit [facility] [address] [place] [phone] Karen Leon, UNEMPLOYMENT INSPECTOR [address] [place] [address] 12/03/2024 11:45 AM YOKE SETTER Appointment [facility] [address] [place] [address] 02/25/2025 10:30 AM CDT Office Visit [facility] [address] [address] Ayde Bartlett PA [address] [place] [address] 08/11/2025 10:15 AM CDT Appointment [facility] [address] [address] 08/11/2025 10:45 AM CDT Office Visit [facility] [address] [address] Nathalie Andrews MD [address] [address] Health Maintenance Due Date Last Done Comments COVID-19 vaccine series (3 - Pfizer risk series) 05/03/2021 04/05/2021, 03/03/2021 Influenza for age 9-49 07/13/2024 2, 08/21/2022, 08/09/2021, Additional history exists Pap test for age 21-65 09/07/2025 0, 09/07/2020, 06/04/2015, Additional history exists BMI (ht and wt on same day) for age 18+ 09/24/2025 09/24/2024, 08/11/2024, 07/31/2024, Additional history exists Depression screening for age 12+ 09/24/2025 09/24/2024, 09/13/2022, 09/13/2021, Additional history exists Tetanus booster 11/28/2028 11/28/2018, 02/11, 08/12/2012, Additional history exists HIV for age 15-65 Completed 08/15/2011 Hepatitis C screening for ag e 18-79 Completed 08/15/2011 Tdap Completed 11/28/2018, 02/11, 08/12/2012, Additional history exists Pneumococcal series for age 6-64 Completed 09/24/20 24 Procedures Procedure Name Priority Date/Time Associated Diagnosis Comments EKG 12 LEAD Routine 09/23/2024 9:12 AM YOKE SETTER Chest congestion Chest pain, pleuritic PÉREZ (dyspnea on exertion) MI READING EKG - NO CHARGE, COMP ONLY Routine 09/23/2024 9:11 AM YOKE SETTER Chest congestion Chest pain, pleuritic PÉREZ (dyspnea on exertion) URINE CULTURE COLIN 09/21/2024 1:19 PM YOKE SETTER Abdominal pain, RUQ (right upper quadrant) Acute diarrhea URINALYSIS MICROSCOPIC STAT 09/21/2024 1:19 PM YOKE SETTER Abdominal pain, RUQ (right upper quadrant) Acute diarrhea RED CELL MORPHOLOGY STAT 09/21/2024 1 :19 PM YOKE SETTER Abdominal pain, RUQ (right upper quadrant) Acute diarrhea PLATELET ESTIMATE STAT 09/21/2024 1:1 9 PM YOKE SETTER Abdominal pain, RUQ (right upper quadrant) Acute diarrhea MANUAL DIFFERENTIAL STAT 09/21/2024 1 :19 PM YOKE SETTER Abdominal pain, RUQ (right upper quadrant) Acute diarrhea CBC WITH AUTO DIFFERENTIAL STAT 09/21/2024 1:19 PM YOKE SETTER Abdominal pain, RUQ (right upper quadrant) Acute diarrhea UA W/ SEDIMENT EXAM REFLEXED PER CRITERIA STAT 09/21/2024 1:19 PM YOKE SETTER Abdominal pain, RUQ (right upper quadrant) Acute diarrhea LIPASE STAT 09/21/2024 1:19 PM YOKE SETTER Abdominal pain, RUQ (right upper quadrant) Acute diarrhea C-REACTIVE PROTEIN Patient wait 09/21/2024 1: 19 PM YOKE SETTER Abdominal pain, RUQ (right upper quadrant) Acute diarrhea COMP METABOLIC PANEL STAT 09/21/2024 1:19 PM YOKE SETTER Abdominal pain, RUQ (right upper quadrant) Acute diarrhea CBC WITH AUTO DIFFERENTIAL STAT 09/21/2024 1:19 PM YOKE SETTER Abdominal pain, RUQ (right upper quadrant) Acute diarrhea CT CHEST PE STUDY STAT 09/19/2024 11: 42 AM YOKE SETTER Chest congestion Chest pain, pleuritic PÉREZ (dyspnea on exertion) COVID/FLU/RSV PANEL Routine 09/19/2024 1 0:48 AM YOKE SETTER Chest congestion THROAT RAPID STREP ONLY CLINIC Routine 09/19/2024 10:47 AM YOKE SETTER Exposure to strep throat SCAN-ULTRASOUND REPORT 09/11/2024 12:00 AM CDT PATH TISSUE EXAM Routine 08/25/2024 2:52 PM CDT Breast skin changes LAB TRACKING EVENT Routine 08/12/2024 7: 51 AM CDT PATH TISSUE EXAM Routine 08/12/2024 7:51 AM CDT XR MAMMO ELICIA BILAT DIAG COLIN 08/07/2024 [...] insufficiency CREATININE,ISTAT Routine 07/17/2024 9:53 AM CDT CATTLE SORTER THIN PREP PAP SCREEN IMAGED Routine 09/07/2020 9:01 AM CDT Screening for malignant neoplasm of cervix ANTI HIV 1/2 Routine 08/15/2011 1:17 PM CDT Screening examination for STD (sexually transmitted disease) ANTI HCV Routine 08/15/2011 1:17 PM CDT Screening examination for STD (sexually transmitted disease) from Last 3 Months or Most Recently Relevant to Health Maintenance Results * EKG 12 LEAD (09/23/2024 9:12 AM YOKE SETTER) Veronica LOFTON EKG ORD * MI READING EKG - NO CHARGE, COMP ONLY (09/23/2024 9:11 AM YOKE SETTER) Veronica LOFTON PB - PROVIDER READINGS * CBC WITH AUTO DIFFERENTIAL (09/21/2024 1:19 PM YOKE SETTER) WHITE BLOOD COUNT 8.3 4.5 - 11.0 thou/cu mm 09/21/2024 2:27 PM [facility] RED BLOOD COUNT 4.49 4.00 - 5.20 mil/cu mm 09/21/2024 2:27 PM [facility] HEMOGLOBIN 14.3 12.0 - 16.0 g/dL 09/21/2024 2:27 PM [facility] HEMATOCRIT 40.6 33.0 - 51.0 % 09/21/2024 2:27 PM [facility] MCV 90 80 - 100 fL 09/21/2024 2:27 PM [facility] MCH 31.8 26.0 - 34.0 pg 09/21/2024 2:27 PM [facility] MCHC 35.2 32.0 - 36.0 g/dL 09/21/2024 2:27 PM YOKE SETTER [facility] RDW 11.9 11.5 - 15.5 % 09/21/2024 2:27 PM YOKE SETTER [facility] PLATELET COUNT 259 140 - 440 thou/cu mm 09/21/2024 2:27 PM YOKE SETTER [facility] MPV 8.6 6.5 - 11.0 fL 09/21/2024 2:27 PM YOKE SETTER [facility] Blood BLOOD SPECIMEN / Unknown [facility] Collect / Unknown 09/21/2024 1:19 PM YOKE SETTER 09/21/2024 1:19 PM YOKE SETTER Amy E Furlong UNEMPLOYMENT INSPECTOR HEMATOLOGY Performing Organization Address [facility]/ZIP Co de Phone Number [facility] [address] [place] [address] * RED CELL MORPHOLOGY (09/21/2024 1:19 PM YOKE SETTER) RBC COMMENT RBC morphology appears normal RBC morphology appears normal, RBC morphology within normal limits for newborns. 09/21/2024 2:27 PM YOKE SETTER [facility] Blood BLOOD SPECIMEN / Unknown [facility] Collect / Unknown 09/21/2024 1:19 PM YOKE SETTER 09/21/2024 1:19 PM YOKE SETTER Amy E Furlong UNEMPLOYMENT INSPECTOR HEMATOLOGY Performing Organization Address [facility]/ZIP Co de Phone Number [facility] [address] [place] [address] * PLATELET ESTIMATE (09/21/2024 1:19 PM YOKE SETTER) PLATELET ESTIMATE Adequate Adequate, No estimate 09/21/2024 2:27 PM YOKE SETTER [facility] Blood BLOOD SPECIMEN / Unknown [facility] Collect / Unknown 09/21/2024 1:19 PM YOKE SETTER 09/21/2024 1:19 PM YOKE SETTER Amy E Furlong UNEMPLOYMENT INSPECTOR HEMATOLOGY Performing Organization Address [facility]/ZIP Co de Phone Number [facility] [address] [place] [address] * (ABNORMAL) MANUAL DIFFERENTIAL (09/21/2024 1:19 PM YOKE SETTER) % NEUTROPHILS 61.0 % 09/21/2024 2:27 PM [facility] % LYMPHOCYTES 23.0 % 09/21/2024 2:27 PM YOKE SETTER [facility] % MONOCYTES 16.0 % 09/21/2024 2:27 PM YOKE SETTER [facility] % EOSINOPHILS 0.0 % 09/21/2024 2:27 PM [facility] % BASOPHILS 0.0 % 09/21/2024 2:27 PM [facility] NEUTROPHILS ABSOLUTE 5.1 1.7 - 7.0 thou/cu mm 09/21/2024 2:27 PM [facility] LYMPHOCYTES ABSOLUTE 1.9 0.9 - 2.9 thou/cu mm 09/21/2024 2:27 PM [facility] MONOCYTES ABSOLUTE 1.3(H) <0.9 thou/cu mm 09/21/2024 2:27 PM [facility] EOSINOPHILS ABSOLUTE 0.0 <0.5 thou/cu mm 09/21/2024 2:27 PM [facility] BASOPHILS ABSOLUTE 0.0 <0.3 thou/cu mm 09/21/2024 2:27 PM [facility] Blood BLOOD SPECIMEN / Unknown [facility] Collect / Unknown 09/21/2024 1:19 PM YOKE SETTER 09/21/2024 1:19 PM YOKE SETTER Amy E Furlong UNEMPLOYMENT INSPECTOR HEMATOLOGY [facility] [address] [place], [place] [id number] * (ABNORMAL) URINALYSIS MICROSCOPIC (09/21/2024 1:19 PM YOKE SETTER) RBC 0-2 0-2, None Seen /HPF 09/21/2024 2:39 PM YOKE SETTER [facility] WBC 11-25(A) 0-2, 3-5, None Seen /HPF 09/21/2024 2:39 PM YOKE SETTER [facility] BACTERIA Moderate(A ) None Seen, Rare, Few Bacteria/ HPF 09/21/2024 2:39 PM YOKE SETTER [facility] EPITHELIAL CELLS Few None Seen, Few Epi/HPF 09/21/2024 2:39 PM YOKE SETTER [facility] Urine URINE SPECIMEN / Unknown Non-Blood / Unknown 09/21/2024 1:19 PM YOKE SETTER 09/21/2024 1:19 PM YOKE SETTER Amy E Keenan UNEMPLOYMENT INSPECTOR URINE Performing Organization Address City[facility]/ZIP Co de Phone Number [facility] [address] [place] [phone] * URINE CULTURE (09/21/2024 1:19 PM YOKE SETTER) CULTURE No growth (<1,000 CFU/mL) 09/22/2024 4:02 PM YOKE SETTER [facility] Urine URINE SPECIMEN / Unknown Non-Blood / Unknown 09/21/2024 1:19 PM YOKE SETTER 09/21/2024 1:19 PM YOKE SETTER Amy Hussein UNEMPLOYMENT INSPECTOR MICROBIOLOGY Performing Organization Address [facility]/ZIP Co de Phone Number [facility] [address] [place] [address], [place] * (ABNORMAL) STAT Urinalysis w/ reflex to Microscopic (09/21/2024 1:19 PM YOKE SETTER) COLOR Yellow Yellow Color 09/21/2024 2:35 PM YOKE SETTER [facility] CLARITY Clear Clear Clarity 09/21/2024 2:35 PM [facility] SPECIFIC GRAVITY,URINE <=1.005(A) 1.010, 1.015, 1.020, 1.025 09/21/2024 2:35 PM [facility] PH,URINE 5.5 6.0, 7.0, 8.0, 5.5, 6.5, 7.5, 8.5 09/21/2024 2:35 PM [facility] UROBILINOGEN, QUALITATIVE Normal Normal EU/dl 09/21/2024 2:35 PM [facility] PROTEIN, URINE Negative Negative mg/dL 09/21/2024 2:35 PM [facility] GLUCOSE, URINE Negative Negative mg/dL 09/21/2024 2:35 PM [facility] KETONES,URINE Negative Negative mg/dL 09/21/2024 2:35 PM [facility] BILIRUBIN,URI NE Negative Negative 09/21/2024 2:35 PM [facility] OCCULT BLOOD,URINE Negative Negative 09/21/2024 2:35 PM [facility] NITRITE Negative Negative 09/21/2024 2:35 PM [facility] LEUKOCYTE ESTERASE Trace(A) Negative 09/21/2024 2:35 PM [facility] Urine URINE SPECIMEN / Unknown Non-Blood / Unknown 09/21/2024 1:19 PM YOKE SETTER 09/21/2024 1:19 PM YOKE SETTER Amy E Furlong UNEMPLOYMENT INSPECTOR URINE Performing Organization Address [facility]/ZIP Co de Phone Number [facility] [address] [place], [place] [id number] * (ABNORMAL) C-REACTIVE PROTEIN (09/21/2024 1:19 PM YOKE SETTER) Pathologist [facility] C-REACTIVE PROTEIN 4.3(H) <0.5 mg/dL 09/21/2024 2:10 PM YOKE SETTER [facility] Blood BLOOD SPECIMEN / Unknown [facility] / Unknown 09/21/2024 1:19 PM YOKE SETTER 09/21/2024 1:19 PM YOKE SETTER Amy E Furlong UNEMPLOYMENT INSPECTOR CHEMISTRY Performing Organization Address [facility]/ZIP Co de Phone Number [facility] [address] [place] [address] * LIPASE (09/21/2024 1:19 PM YOKE SETTER) LIPASE 38.4 13.0 - 60.0 IU/L 09/21/2024 2:10 PM [facility] Blood BLOOD SPECIMEN / Unknown [facility] Collect / Unknown 09/21/2024 1:19 PM YOKE SETTER 09/21/2024 1:19 PM YOKE SETTER Amy E Keenan UNEMPLOYMENT INSPECTOR CHEMISTRY [facility] [address] [place] [address] * (ABNORMAL) COMP METABOLIC PANEL (09/21/2024 1:19 PM YOKE SETTER) SODIUM 137 136 - 145 mmol/L 09/21/2024 2:10 PM [facility] POTASSIUM 4.1 3.5 - 5.1 mmol/L 09/21/2024 2:10 PM [facility] CHLORIDE 99 98 - 107 mmol/L 09/21/2024 2:10 PM [facility] CO2,TOTAL 26 22 - 29 mmol/L 09/21/2024 2:10 PM [facility] ANION GAP 12 5 - 18 09/21/2024 2:10 PM [facility] GLUCOSE 97 70 - 99 mg/dL 09/21/2024 2:10 PM [facility] CALCIUM 9.5 8.8 - 10.4 mg/dL 09/21/2024 2:10 PM [facility] Comment: Reference ranges for this test were updated on 09/16/2024 to reflect our healthy population more accurately. Reference range changes are not retroactively applied to results, but previous results using the same methodology can be interpreted in the context of the new reference range. BUN 10 6 - 20 mg/dL 09/21/2024 2:10 PM [facility] CREATININE 0.84 0.50 - 0.90 mg/dL 09/21/2024 2:10 PM [facility] BUN/CREAT RATIO 12 10 - 20 4 2:10 PM [facility] eGFR 88(L) >90 mL/min/1.7 3m2 09/21/2024 2:10 PM [facility] Comment:As of 2022, eG FR is calculated by the CKD-EPI creatinine equation without race adjustment. eGFR can be influenced by muscle mass, exercise, and diet. The reported eGFR is an estimation only and is only applicable if the renal function is stable. ALBUMIN 4.4 4.0 - 4.9 g/dL 09/21/2024 2:10 PM [facility] PROTEIN,TOTAL 7.8 6.0 - 8.0 g/dL 09/21/2024 2:10 PM [facility] BILIRUBIN,TOTAL 0.5 0.0 - 1.2 mg/dL 09/21/2024 2:10 PM [facility] ALK PHOSPHATASE 89 35 - 104 IU/L 09/21/2024 2:10 PM [facility] ALT (SGPT) 21 10 - 35 IU/L 09/21/2024 2:10 PM [facility] AST (SGOT) 22 10 - 35 IU/L 09/21/2024 2:10 PM [facility] Blood BLOOD SPECIMEN / Unknown [facility] Collect / Unknown 09/21/2024 1:19 PM YOKE SETTER 09/21/2024 1:19 PM YOKE SETTER Amy E Keenan UNEMPLOYMENT INSPECTOR CHEMISTRY [facility] [address] [place] [address] * CT CHEST PE STUDY (09/19/2024 11:42 AM YOKE SETTER) Anatomical Region Laterality Modality CHEST, THORAX, HEART Computed To mography 09/19/2024 12:2 0 PM YOKE SETTER Narrative 09/19/2024 12:20 PM YOKE SETTER For Patients: As a result of the 21st Century Cures Act, medical imaging exams and procedure reports are released immediately into your electronic medical record. You may view this report before your referring provider. If you have questions, please contact your health care provider. Indication: PÉREZ (dyspnea on exertion) Chest congestion Pulmonary embolism (PE) suspected, high prob Technique: CT angiogram of the chest was performed for evaluation of pulmonary embolism. 100 mL of Omnipaque 350 intravenous contrast was administered. Comparison: None. Findings: CARDIOVASCULAR: Diagnostic quality: Contrast opacification of the pulmonary arterial circulation is adequate for assessment of pulmonary embolism. Study is not significantly limited by respiratory motion artifact. Pulmonary arteries: No filling defects to suggest pulmonary embolism. Not enlarged. Heart: No interventricular septal deviation. Normal in size. No significant coronary artery calcification. No significant valvular calcification. Pericardium: No pericardial effusion. Thoracic aorta: No significant abnormality. Normal cervical branching. REMAINING CHEST: Medical devices: None. Thyroid: Normal. Lymph nodes: No supraclavicular, axillary, mediastinal, or hilar lymphadenopathy. Postsurgical changes in the left axilla. Left hilar calcified lymph nodes. Other mediastinal structures: Nonspecific mild soft tissue density in the anterior mediastinum may represent residual thymus. Lung parenchyma: Lingular calcified granuloma. Airways: No significant abnormality. Pleura: No significant abnormality. Chest wall: Postsurgical changes from left breast lumpectomy. Upper abdomen: No significant abnormality. Musculoskeletal: Mild degenerative changes of the visualized spine. Impression: 1. No acute pulmonary embolism. 2. Nonspecific mild soft tissue density in the anterior mediastinum may represent residual thymus. 3. Postsurgical changes of the left breast and axilla. Please note that all CT scans at this facility use dose modulation, iterative reconstruction, and/or weight-based dosing when appropriate to reduce radiation dose to as low as reasonably achievable. Dictated by David Garcia MD @ 09/19/2024 12:20:50 PM (Electronically Signed) Procedure Note Rich Garcia MD - 09/19/2024 For Patients: As a result of the 21st Century Cures Act, medical imagingexams and procedure reports are released immediately into your electronicmedical record. You may view this report before your referring provider.If you have questions, please contact your health care provider. Indication: PÉREZ (dyspnea on exertion) Chest congestion Pulmonary embolism (PE) suspected, high prob Technique: CT angiogram of the chest was performed for evaluation of pulmonaryembolism. 100 mL of Omnipaque 350 intravenous contrast was administered. Comparison: None. Findings: CARDIOVASCULAR: Diagnostic quality: Contrast opacification of the pulmonary arterialcirculation is adequate for assessment of pulmonary embolism. Study is notsignificantly limited by respiratory motion artifact. Pulmonary arteries: No filling defects to suggest pulmonary embolism. Notenlarged. Heart: No interventricular septal deviation. Normal in size. Nosignificant coronary artery calcification. No significant valvularcalcification. Pericardium: No pericardial effusion. Thoracic aorta: No significant abnormality. Normal cervical branching. REMAINING CHEST: Medical devices: None. Thyroid: Normal. Lymph nodes: No supraclavicular, axillary, mediastinal, or hilarlymphadenopathy. Postsurgical changes in the left axilla. Left hilar calcified lymph nodes. Other mediastinal structures: Nonspecific mild soft tissue density in theanterior mediastinum may represent residual thymus. Lung parenchyma: Lingular calcified granuloma. Airways: No significant abnormality. Pleura: No significant abnormality. Chest wall: Postsurgical changes from left breast lumpectomy. Upper abdomen: No significant abnormality. Musculoskeletal: Mild degenerative changes of the visualized spine. Impression: 1. No acute pulmonary embolism. 2. Nonspecific mild soft tissue density in the anterior mediastinum mayrepresent residual thymus. 3. Postsurgical changes of the left breast and axilla. Please note that all CT scans at this facility use dose modulation,iterative reconstruction, and/or weight-based dosing when appropriate toreduce radiation dose to as low as reasonably achievable. Dictated by David Garcia MD @ 09/19/2024 12:20:50 PM (Electronically Signed) Veronica LOFTON CT * COVID/FLU/RSV PANEL (09/19/2024 10:48 AM YOKE SETTER) COVID 19 [facility] MOLECULAR Negative Negative 09/19/2024 8:40 PM YOKE SETTER [facility] Comment:All PCR tests are morrison bject to false negative result due to variability in viral load and collection technique. A negative result does not rule out a SARS-CoV-2 infection. Clinical correlation required. INFLUENZA A PCR Negative 4 8:40 PM YOKE SETTER [facility] INFLUENZA B PCR Negative 4 8:40 PM YOKE SETTER [facility] Respiratory Syncytial Virus Negative 09/19/2024 8:40 PM YOKE SETTER [facility] Swab NASOPHARYNGEAL SWAB / Unknown Non-Blood / Unknown 09/19/2024 10:48 AM YOKE SETTER 09/19/2024 10:49 AM YOKE SETTER Veronica LOFTON [facility]BIOLOGY [facility] [address] [place] [address], [place] * THROAT RAPID STREP ONLY CLINIC (09/19/2024 10:47 AM YOKE SETTER) POC, GROUP A STREP NOT DETECTED NOT DETECTED [facility] Comment: The [place] [employer] recommends that a throat culture be performed if a rapid group A streptococcus assay yields a negative result. [employer] recommends Streptococcus, Group A culture. Throat SPECIMEN FROM THROAT / Unknown 09/19/2024 10:47 AM YOKE SETTER 09/19/2024 10:47 AM YOKE SETTER Veronica LOFTON MICROBIOLOGY Performing Organization Address [facility] Co de Phone Number [facility] [address] [place] [address], [facility] [address] [place] [address] * SCAN-ULTRASOUND REPORT (09/11/2024 12:00 AM CDT) Anatomical Region Laterality Modality Other Scanner OTHER * PATH TISSUE EXAM (08/25/2024 2:52 PM CDT) Only the most recent of2 resultswithin the time period is included. Case Report Pathology Report Case: [id number] Authorizing Provider: All Og MD Collected: 08/25/2024 1452 Ordering Location: [facility] Received: 08/25/2024 1540 Clinic Pathologist: Roslyn Arellano MD Specimen: Left Breast, single stitch superior, double stitch lateral--histor y of left breast cancer 202208/27/2024 4:00 PM CDT [facility] EN[facility]AL LABOR[facility] Final Diagnosis A) LEFT BREAST SKIN, CYST, EXCISION: 1. Skin with epidermal inclusion cyst 2. Negative for malignancy 08/27/2024 4:00 PM T [facility] EN[facility]AL LAB[facility] Clinical Information Cyst 08/27/2024 4:00 PM T [facility] Gross Description A) Received in [...] is entirely submitted in 3 cassettes: 1. 12:00 and 6:00 skin tip margins 2-3. Central sections, sequential 12:00 to 6:00 The specimen was removed from the patient at 1452 and placed unsliced in 10% neutral buffered formalin at 1452 on 08/25/2024. The specimen sat in formalin unsliced for 19 hours. (Please note: Cold ischemic time is greater than 60 minutes). The sliced specimen was fixed in formalin for a minimum of 6 hours and not longer than 72 hours. LDW 08/26/2024 08/27/2024 4:00 PM T [facility] EN[facility] Microscopic Description The final diagnosis is based on microscopic examination of appropriate sections of all specimens. 08/27/2024 4:00 PM T [facility] Additional Information Interpreted at [facility], Central Laboratory - [address], [place] [address] 08/27/2024 4:00 PM [facility] ENTRAL LABORAT[facility] Other (Left Breast) Non-Blood / Unknown 08/25/2024 2:52 PM CDT 08/25/2024 3:40 PM CDT All Og MD PATHOLOGY/CYTOLOGY Performing Organization Address [facility] Co de Phone Number [facility] [address] [place] [address], [place] * LAB TRACKING EVENT (08/12/2024 7:51 AM CDT) Other (Other) Client Collect / Unknown 08/12/2024 7:51 AM CDT 08/12/2024 1:21 PM CDT Cici Sanchez MD LAB BILL O NLY Performing Organization Address [facility] Co de Phone Number [facility] [address] [place] [address], [place] * XR MAMMO ELICIA BILAT DIAG [...] of the exam. BI-RADS Category 2: Benign Dictated by: Kaitlyn Mosqueda MD @08/07/2024 12:41:52 PM/CRL:jeimy PATIENTS: You will also receive a letter with your examination results in an easy to read format. If you have questions about your results, please contact your referring provider. Narrative 08/07/2024 3:55 PM CDT For Patients: As a result of the Century Cures Act, medical imaging exams and procedure reports are released immediately into your electronic medical record. You may view this report before your referring provider. If you have questions, please contact your health care provider. BILATERAL DIGITAL DIAGNOSTIC MAMMOGRAM WITH TOMOSYNTHESIS AND COMPUTER-AIDED DETECTION, 08/07/2024 BILATERAL BREAST ULTRASOUND, 08/07/2024 CLINICAL HISTORY: Personal history LEFT breast cancer treated with lumpectomy and radiation in 2022. Small palpable skin lesion inferior LEFT breast. RIGHT lateral breast pain. COMPARISON: 09/18/2023, 10/02/2023. TECHNIQUE: Digital BILATERAL mammogram in standard projections with tomosynthesis. Computer-aided detection. Additional lateral view obtained of the LEFT breast. [...] released immediately into your electronic medical record. You may view this report before your referring provider. If you have questions, please contact your health care provider. BILATERAL BREAST ULTRASOUND, 08/07/2024 PLEASE SEE [id number] FOR DIGITAL BILATERAL MAMMOGRAM SAME DAY. Joanna Bran DO US * US VENOUS INSUFFICIENCY LOWER EXTREMITY BILATERAL (07/17/2024 12:56 PM CDT) Anatomical Region Laterality Modality LEGS Ultrasound 07/17/2024 12:0 8 PM CDT Narrative 07/17/2024 8:23 PM CDT VASCULAR ULTRASOUND REPORT MAINE DOE : 1980 Study Date: 07/17/2024 12:08:49 PM Age: 43 years Tech: CAR Gender: F Referring MD: VINNIE PALMER Site: [facility] Vascular Center Study performed: Duplex US venous [...] left sapheno-femoral junction. 6. Incompetent varicose and/or hand tube bender veins as listed below. COMPARISON: Compared to [...] 1.2 sec reflux. MEASUREMENTS: + +--------+----+--------+------+ RIGHT Compress SVT Diameter [...] Accreditation Commission (IAC/Vascular), www.intersocietal.org/vascular Report generated by [employer]. Final Procedure Note Gulshan Gallo MD - 07/17/2024 VASCULAR ULTRASOUND REPORT MAINE DOE : 1980 Study Date: 07/17/2024 12:08:49 PM Age: 43 years Tech: CAR Gender: F Referring MD: VINNIE PALMER Site: [facility] - Vascular Center Study performed: Duplex US venous [...] left sapheno- femoraljunction. 6. Incompetent varicose and/or hand tube bender veins as listed below. COMPARISON: Compared to [...] theIntersocietal Accreditation Commission (IAC/Vascular),www.intersocietal.org/vascular Report generated by [employer]. Final Vinnie Palmer MD US * CT [...] Narrative 07/18/2024 6:44 AM CDT For Patients: As a result of the Cures Act, medical imaging exams and procedure reports are released immediately into your electronic medical record. You may view this report before your referring provider. If you have questions, please contact your [...] (ABNORMAL) CREATININE,ISTAT (07/17/2024 9:53 AM CDT) Pathologist [facility] CREATININE, POCT 0.90 0.57 - 1.11 mg/dL 07/17/2024 3:26 PM CDT [facility] Comment:Caution: Patients ta melvin Hydroxyurea have falsely increased iStat Creatinine results. Verify creatinine results ordering a Creatinine (47652.2) eGFR 82(L) >90 mL/min/1.7 3m2 07/17/2024 3:26 PM CDT [facility] Comment:As of 2022, eG FR is calculated by the CKD-EPI creatinine equation without race adjustment. eGFR can be influenced by muscle mass, exercise, and diet. The reported eGFR is an estimation only and is only applicable if the renal function is stable. Blood BLOOD SPECIMEN / Unknown 07/17/2024 9:53 AM CDT 07/17/2024 3:26 PM CDT Vinnie Palmer MD CHEMISTRY [facility] [employer] LAB[facility]-CENTRAL LABORATORY [address] [place] [address], * CATTLE SORTER THIN PREP PAP SCREEN IMAGED (09/07/2020 9:01 AM CDT) Pathologist [facility] Case Report Gynecologic Cytology Report Case: [id number] Authorizing Provider: Celi Dickinson PA Collected: 09/07/2020 0901 Ordering Location: [facility] Received: 09/07/2020 0950 Clinic First Screen: Jose Beyer Rescreen: Linsey Rooney Specimen: CATTLE SORTER ThinPrep Vial Screening, Cervical 09/14/2020 2:42 PM YOKE SETTER [facility] INTERPRETATION/ RESULT NEGATIVE FOR INTRAEPITHELIAL LESION OR MALIGNANCY (NIL) (none) 09/14/2020 2:42 PM YOKE SETTER [facility] [employer] [facility] ENTRAL LABORATORY IMEN ADEQUACY Satisfactory for evaluation Endocervical component present 09/14/2020 2:42 PM YOKE SETTER [facility] [employer] [facility] ENTRAL LAB[facility] HPV REQUEST HPV and PAP 09/14/2020 2:42 PM YOKE SETTER [facility] [employer] ENTRAL LABORATORY Date of LMP 08/26/20 09/14/2020 2:42 PM YOKE SETTER [facility] [employer] [facility] ENTRAL [facility] Last Pap Date 06/04/15 09/14/2020 2:42 PM YOKE SETTER [facility] EN[facility] Last Pap Result NIL 0 2:42 PM YOKE SETTER [facility] [employer] [facility] ENTRAL LAB[facility] Abnormal Pap or [place] Bx in last 5 years No 09/14/2020 2:42 PM YOKE SETTER [facility] [employer] [facility] EN[facility]AL [facility] Menstrual Status Regular Periods 09/14/2020 2:42 PM YOKE SETTER [facility] [employer] [facility] ENTRAL LAB[facility] [place] Bx Done Today No 09/14/2020 2:42 PM YOKE SETTER [facility] EN[facility]AL [facility] Additional Information None given 09/14/2020 2:42 PM YOKE SETTER [facility] EN[facility] Comment: Cytology is screened at [facility] [email or web address] [facility] - [address], [place] [address] and [facility] - [address] [address] [place] [address] and [facility] Laboratory - [address] [place] [address] Interpreted at [facility] [email or web address] Central Laboratory - [address], [place] [address] Automated Review Successful 09/14/2020 2:42 PM YOKE SETTER [facility] [employer] [facility] EN[facility] Comment:Specimen processed s uccessfully by automated water control station engineer device, ThinPrep Imaging System, [employer] ANCILLARY TESTING CATTLE SORTER HPV Ordered, Please see separate report 09/14/2020 2:42 PM YOKE SETTER [facility] ENTRRI LABORATORY Note The pap test is a screening technique, not a diagnostic procedure. It is used primarily to screen for squamous cancers and precursor lesions. Published studies have shown that it is subject to both false negative and false positive results. The pap test should not be used as the sole means to diagnose or exclude pre-malignant and malignant lesions. 09/14/2020 2:42 PM YOKE SETTER [facility]- ENTRRI LABORATORY Other (Cervical) Non-Blood / Unknown 09/07/2020 9:01 AM CDT 09/07/2020 9:50 AM CDT Celi LOFTON PATHOLOGY/CYTOLOGY Performing Organization Address City/[facility]/ZIP Co de Phone Number [facility]-CENTRAL LABORATORY [address] [place] [address], * ANTI HCV (08/15/2011 1:17 PM CDT) ANTI HCV Non-reacti ve [facility] Blood specimen (specimen) BLOOD SPECIMEN / Unknown 08/15/2011 1:17 PM CDT 08/15/2011 1:11 PM CDT Belen Latif MD SEND OUTS Performing Organization Address [facility]/ZIP Co de Phone Number [facility] INTERNAL ZIP [address] [place], [place] [id number] * ANTI HIV 1/2 (08/15/2011 1:17 PM CDT) ANTI HIV 1/2 Non-reacti ve [facility] Blood specimen (specimen) BLOOD SPECIMEN / Unknown 08/15/2011 1:17 PM CDT 08/15/2011 1:11 PM CDT Belen Latif MD SEND OUTS Performing Organization Address [facility]/ZIP Co de Phone Number [facility] INTERNAL ZIP [address] [place] [address] from Last 3 Months or Most Recently Relevant to Health Maintenance Additional Health Concerns Infection Onset Date Last Indicated Rule-Out Stool Pathogen 09/21/2024 09/21/20 24 Rule-Out C.diff 09/21/2024 09/21/2024 Advance Directives * Full Code (Latest Code [...] Code Status Discussion: Not Discussed Care Teams Rotary Cutter Feeder Relationship Specialty Start Date End Date Joanna Bran [place] [address] PCP - General Family Practice 08/31/23 Melita Chilel RN [address] [address] Nurse Navigator - Oncology Registered Nurse 10/03/23 Nathalie Andrews MD [address] [address] Surgery - General 10/03/23 Petrona Shannon RN [address] [place], [place] [id number] Nurse Navigator - Oncology Registered Nurse 11/02/23 Zeny Kaur MD [address] [place], [place] [phone] Medical Oncologist Oncology 11/22/23 Karen Leon, UNEMPLOYMENT INSPECTOR [address] [place] [address] Nurse Practitioner Oncology 11/22/23 Nixon Felton LSW [address] [place], [place] [phone] Food Service Coordinator Oncology 11/22/23
[2024-10-07 23:47] LABS: Chlamydia DNA Amplified* NOT DETECTED (No Detected); GC DNA Amplified* NOT DETECTED (No Detected)
== END 2024-10-07 15:36 | disposition home or self-care (01) ==
LOC: NFLDREF 15:36
PROVIDERS: PCP Family Medicine; Visit Provider Obstetrics & Gynecology
DX: N94.10 Unspecified dyspareunia (principal)
CPT/HCPCS: 87491; 87591

== ENCOUNTER 2024-11-19 06:11 | Day surgery (SDC) | payer BC, SELFPAY ==
[2024-11-19] VITALS (26 sets, daily range): BP systolic 103–136; BP diastolic 67–88; PULSE 58–87; RESP 10–16; TEMP 36.3–37.1; O2SAT 90–100; BMI 33.3
--- OUTSIDE RECORDS SUMMARY | 2024-11-19 06:15 | XMS_ITS | Continuity of Care Document ---
Author Name NwHIN User [id number] llowed Address Unknown Organization Unknown Address Unknown Procedures FILTER APPLIED:Only known Procedures with Onset Date within the last 5 years Procedure Date Procedure Provider Additiona l Information Status CREATININE (04346) Compl eted TRANSVAGINAL US NON-OB (15903) Completed METABOLIC PANEL TOTAL CA (38960) Completed HEPATIC FUNCTION PANEL (30331) Completed URINALYSIS AUTO W/SCOPE (40730) Completed ASSAY OF AMYLASE (76303) Completed ASSAY OF LACTIC ACID (11105) Completed PROCALCITONIN (PCT) (31432) Completed COMPLETE CBC W/AUTO DIFF WBC (94571) Completed C-REACTIVE PROTEIN (47613) Completed URINE CULTURE/COLONY COUNT (71810) Completed VASCULAR STUDY (28379) C ompleted URINE TEST (05868) Completed THER/PROPH/DIAG INJ IV PUSH (79573) Completed TX/PRO/DX INJ NEW DRUG ADDON (66413) Completed EMERGENCY DEPT VISIT MOD MDM (32496) Completed TRANSVAGINAL US NON-OB (86940) Completed CT ABD PELVIS W/O CONTRAST (35940) Completed ROUTINE VENIPUNCTURE (63251) Completed Encounters FILTER APPLIED:Only known Encounters with Admission Date within the last 5 years Encounter Location Admission Discharge Billing Code Superintendent Refuse Disposal Attender Outpatient Joanna Trax ler Outpatient Joanna Trax ler Emergency Domenic Parks Outpatient [facility] Unknown [id number] GISELL BAUM Outpatient [facility] MONICA PALMER Outpatient [facility] JOANNA YODERER Unknown [id number] GISELL BAUM
--- OUTSIDE RECORDS SUMMARY | 2024-11-19 06:16 | XMS_ITS ---
Author Organization [facility] Address [address] [place] [address] Care Team Providers Care Grader Patrol Name Role Phone Unavailable Unavailable Unavailable Surgery Details Not on file Complications Check Surgery Details section. Procedure Estimated Blood Loss Check Surgery Details section. Procedure Findings Check Surgery Details section. Procedure Specimens Taken Check Surgery Details section.
--- OUTSIDE RECORDS SUMMARY | 2024-11-19 06:16 | XMS_ITS | Clinical Summary ---
Author Organization [facility] Address [place], [place] [address] Care Team Providers Care Dowel Inspector Name Role Phone Yina Joanna Zaidi DO Primary Care Provider [phone] Melita Chilel RN Unavailable [phone] Nathalie Andrews MD Unavailable [phone] [facility] Zeny Kaur MD Unavailable [phone] Karen Leon FISHER PURSE SEINE Unavailable Nixon Felton Unavailable [phone] Allergies Active Allergy Reactions Criticality Noted Date Comments Spironolactone Hyponatremia 08/02/2010 Medications * This document contains information received from the source organization and may not represent a complete record from that organization. lactobacillus rhamnosus, GG, (CULTURELLE) 10 billion cell capsule Take 1 capsule by mouth once daily. 0 09/12/2017 Active multivitamin (MVI) tablet Take 1 tablet by mouth once daily. 0 06/03/2019 Active loratadine (CLARITIN) 10 mg tablet Take 10 mg by mouth once daily. Active anastrozole (ARIMIDEX) 1 mg tabletIndicatio ns:Malignant neoplasm of lower-outer quadrant of left breast of female, estrogen receptor positive (HC) Take 1 Tablet (1 mg) by mouth once daily. 30 Tablet 11 02/26/2024 Active calcium carbonate/vitam in D3 (CALCIUM 500 + D, D3, ORAL) Take by mouth. Active leuprolide acetate (LUPRON DEPOT IM) Inject intramuscula r. Every three months Active Active Problems Problem [...] Encounters Date Type Department Care Team Description 11/14/2024 Telephone [facility] [address] [place] [address] Karen Leon NP Appointment 11/13/2024 2:00 PM APPLICATION DEVELOPMENT SPECIALIST Office Visit [email or web address] [address] [place] [address] Joanna Bran DO Pre-Op Exam (11/19/24 [facility] total laparoscopic hysterectomy Dr. 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, 10/27/2024 10/27/2024 Procedure Only [facility] [address] [place] [address] Vinnie Carty MD 10/27/2024 Procedure Only [facility] [address] [place] [address] Vinnie Carty MD 10/02/2024 Telephone [facility] [address] [place] [address] Vinnie Carty MD Procedure 09/24/2024 2:00 PM APPLICATION DEVELOPMENT SPECIALIST Office Visit [facility] [[email or web address] [address] [place] [address] Joanna Bran, DO Physical (Still having left sided lower abdominal pain, was told it was not a cyst per ultrasound); Immunization/Injectio n 09/24/2024 Travel 09/23/2024 Orders Only [facility] [[email or web address]] [address] [place] [address] Veronica Ledezma PA 1 scan: (1-Ord) NFLD-EKG-09/19/24 09/21/2024 12:15 PM APPLICATION DEVELOPMENT SPECIALIST Office Visit [facility] [address] [place] [address] Amy Hussein, FISHER PURSE SEINE Abdominal Pain (Bilateral upper stomach -Started Sunday ) 09/21/2024 Travel 09/19/2024 11:30 AM APPLICATION DEVELOPMENT SPECIALIST Ancillary Procedure [facility] [[email or web address] [address] [place] [address] 09/19/2024 10:40 AM APPLICATION DEVELOPMENT SPECIALIST Office Visit [facility] [[email or web address] [address] [place] [address] Veronica Ledezma PA URI 09/19/2024 Travel 09/11/2024 Orders Only [facility] Scanner 1 scan: (1-Ord) [facility] , 09/11/2024 09/10/2024 10:45 AM CDT Office Visit [facility] [address] [facility] [place] [address] Karen Leon L, FISHER PURSE SEINE Follow Up 09/10/2024 10:34 AM CDT - 09/10/2024 11:59 PM CDT Hospital Encounter [facility] [address] [facility] [place] [address] Karen Leon L, FISHER PURSE SEINE Malignant neoplasm of lower-outer quadrant of left breast of female, estrogen receptor positive (HC) (Primary Dx) 09/10/2024 Travel 09/05/2024 Travel 09/02/2024 Hospital/[facility] Telephone Encounter [facility] [address] [place] [address] Diana Mclaughlin RN Pre Procedure (PVP) 09/01/2024 Telephone [facility] [[email or web address] [address] [place] [address] All Og MD Results (pathology) 08/28/2024 Telephone [facility] [address] [place] [address] Karen Leon L, FISHER PURSE SEINE Appointment 08/25/2024 2:30 PM CDT Office Visit [facility] [[email or web address] [address] [place] [address] All Og MD Consult (Cyst on left breast ) 08/25/2024 Travel 08/21/2024 Travel from Last 3 Months Immunizations Name Administration Dates Next Due COVID-19 vaccine (Book'n'Bloom 30mcg/0.3mL) LIZETTE MURCIA 04/05/2021,03/03/2021 Influenza Virus, Unspecified 08/21/2022, 10/05/2014,08/21/2013,2011 Influenza, IIV3 (Age 6-35 mos) 10/05/2014 Influenza, IIV3 (Age >=3 years) 08/21/2013,09/06,08/15/2011 Influenza, IIV4 08/09/2021,,07/22/2019,2017,08/01/2017,08/01/2016,10/26/2015 Influenza, IIV4 (=>6mos) MDV 08/21/2022 Pneumococcal Conj [...] drink = 0.6 oz pur e alcohol) [facility] Utilities Answer Date Recorded Do you have trouble paying f or utilities (for example, heat, electricity, water, phone)? Yes 06/01/2024 PHQ-2 Answer Date Recorded PHQ-2 TOTAL SCORE [...] is your housing situation today? 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 file Not on file Not on file Obstetrics History Para Term AB IAB SAB Ectopic Multiple Livin g Live Births 2 1 1 1 Date Outcome GA Total Labor Labor/2nd/3rd Weight Sex Type Anes PTL Leighann A1 A5 Name Clin Term Last Filed Vital Signs Vital Sign Reading Time Taken Comments Blood Pressure 107/72 11/13/2024 1:57 PM APPLICATION DEVELOPMENT SPECIALIST Pulse 89 11/13/2024 1:57 PM APPLICATION DEVELOPMENT SPECIALIST Temperature 36.9 C (98.5 F) 09/21/2024 12:52 PM APPLICATION DEVELOPMENT SPECIALIST Respiratory Rate 16 09/21/2024 12:52 PM APPLICATION DEVELOPMENT SPECIALIST Oxygen Saturation 96% 09/21/2024 12:52 PM APPLICATION DEVELOPMENT SPECIALIST Inhaled Oxygen Concentration - - Weight 102.5 kg (226 lb) 11/13/2024 1:57 PM APPLICATION DEVELOPMENT SPECIALIST Height 176.5 cm (5' 9.49) 11/13/2024 1:57 PM CS T Body Mass Index 32.91 11/13/2024 1:57 PM APPLICATION DEVELOPMENT SPECIALIST Plan of Treatment Upcoming Encounters Date Type Department Care Team (Late st Contact Info) Description 02/25/2025 10:30 AM CDT Office Visit [place] [address] [address] Ayde Bartlett PA [address] [place] [address] 03/03/2025 11:15 AM CDT Office Visit [facility] [address] [place] [address] Karen Leon NP [address] [place] [address] 08/11/2025 10:15 AM CDT Appointment [place] [address] [facility] [address] [place] [address] 08/11/2025 10:45 AM CDT Office Visit [facility] [address] [address] Nathalie Andrews MD [address] [address] Health Maintenance Due Date Last Done Comments COVID-19 vaccine series (3 - Pfizer risk series) 05/03/2021 04/05/2021, 03/03/2021 Influenza for age 9-49 07/13/2024 2, 08/21/2022, 08/09/2021, Additional history exists Pap test for age 21-65 09/07/2025 0, 09/07/2020, 06/04/2015, Additional history exists Depression screening for age 12+ 09/24/2025 09/24/2024, 09/13/2022, 09/13/2021, Additional history exists BMI (ht and wt on same day) for age 18+ 11/13/2025 11/13/2024, 09/24/2024, 08/11/2024, Additional history exists Tetanus booster 11/28/2028 11/28/2018, 02/11, 08/12/2012, Additional history exists HIV for age 15-65 Completed 08/15/2011 Hepatitis C screening for ag e 18-79 Completed 08/15/2011 Tdap Completed 11/28/2018, 02/11, 08/12/2012, Additional history exists Pneumococcal series for age 6-49 Completed 09/24/20 24 Procedures Procedure Name Priority Date/Time Associated Diagnosis Comments HEMOGLOBIN Routine 11/13/2024 2:40 PM APPLICATION DEVELOPMENT SPECIALIST Pre-op exam SCAN-OPERATIVE/PROCE DURE REPORT 10/27/2024 12:00 AM APPLICATION DEVELOPMENT SPECIALIST EKG 12 LEAD Routine 09/23/2024 9:12 AM APPLICATION DEVELOPMENT SPECIALIST Chest congestion Chest pain, pleuritic PÉREZ (dyspnea on exertion) WI READING EKG - NO CHARGE, COMP ONLY Routine 09/23/2024 9:11 AM APPLICATION DEVELOPMENT SPECIALIST Chest congestion Chest pain, pleuritic PÉREZ (dyspnea on exertion) URINE CULTURE COLIN 09/21/2024 1:19 PM APPLICATION DEVELOPMENT SPECIALIST Abdominal pain, RUQ (right upper quadrant) Acute diarrhea URINALYSIS MICROSCOPIC STAT 09/21/2024 1:19 PM APPLICATION DEVELOPMENT SPECIALIST Abdominal pain, RUQ (right upper quadrant) Acute diarrhea RED CELL MORPHOLOGY STAT 09/21/2024 1 :19 PM APPLICATION DEVELOPMENT SPECIALIST Abdominal pain, RUQ (right upper quadrant) Acute diarrhea PLATELET ESTIMATE STAT 09/21/2024 1:1 9 PM APPLICATION DEVELOPMENT SPECIALIST Abdominal pain, RUQ (right upper quadrant) Acute diarrhea MANUAL DIFFERENTIAL STAT 09/21/2024 1 :19 PM APPLICATION DEVELOPMENT SPECIALIST Abdominal pain, RUQ (right upper quadrant) Acute diarrhea CBC WITH AUTO DIFFERENTIAL STAT 09/21/2024 1:19 PM APPLICATION DEVELOPMENT SPECIALIST Abdominal pain, RUQ (right upper quadrant) Acute diarrhea UA W/ SEDIMENT EXAM REFLEXED PER CRITERIA STAT 09/21/2024 1:19 PM APPLICATION DEVELOPMENT SPECIALIST Abdominal pain, RUQ (right upper quadrant) Acute diarrhea LIPASE STAT 09/21/2024 1:19 PM APPLICATION DEVELOPMENT SPECIALIST Abdominal pain, RUQ (right upper quadrant) Acute diarrhea C-REACTIVE PROTEIN Patient wait 09/21/2024 1: 19 PM APPLICATION DEVELOPMENT SPECIALIST Abdominal pain, RUQ (right upper quadrant) Acute diarrhea COMP METABOLIC PANEL STAT 09/21/2024 1:19 PM APPLICATION DEVELOPMENT SPECIALIST Abdominal pain, RUQ (right upper quadrant) Acute diarrhea CBC WITH AUTO DIFFERENTIAL STAT 09/21/2024 1:19 PM APPLICATION DEVELOPMENT SPECIALIST Abdominal pain, RUQ (right upper quadrant) Acute diarrhea CT CHEST PE STUDY STAT 09/19/2024 11: 42 AM APPLICATION DEVELOPMENT SPECIALIST Chest congestion Chest pain, pleuritic PÉREZ (dyspnea on exertion) COVID/FLU/RSV PANEL Routine 09/19/2024 1 0:48 AM APPLICATION DEVELOPMENT SPECIALIST Chest congestion THROAT RAPID STREP ONLY CLINIC Routine 09/19/2024 10:47 AM APPLICATION DEVELOPMENT SPECIALIST Exposure to strep throat SCAN-ULTRASOUND REPORT 09/11/2024 12:00 AM CDT PATH TISSUE EXAM Routine 08/25/2024 2:52 PM CDT Breast skin changes SHAREPOINT ENGINEER THIN PREP PAP SCREEN IMAGED Routine 09/07/2020 9:01 AM CDT Screening for malignant neoplasm of cervix ANTI HIV 1/2 Routine 08/15/2011 1:17 PM CDT Screening examination for STD (sexually transmitted disease) ANTI HCV Routine 08/15/2011 1:17 PM CDT Screening examination for STD (sexually transmitted disease) from Last 3 Months or Most Recently Relevant to Health Maintenance Results * HEMOGLOBIN (11/13/2024 2:40 PM APPLICATION DEVELOPMENT SPECIALIST) HEMOGLOBIN 13.2 11.7 - 15.5 g/dL [employer] Leo Blood BLOOD SPECIMEN / Unknown 11/13/2024 2:40 PM APPLICATION DEVELOPMENT SPECIALIST 11/13/2024 2:40 PM APPLICATION DEVELOPMENT SPECIALIST Joanna Bran DO HEMATOLOGY Final Resu lt [employer] [facility] [address] [place] [address], [facility] [address] [place] [address] * SCAN-OPERATIVE/PROCEDURE REPORT (10/27/2024 12:00 AM APPLICATION DEVELOPMENT SPECIALIST) Narrative 10/27/2024 12:00 AM APPLICATION DEVELOPMENT SPECIALIST Ordered by an unspecified provider. Other Clinical Staff OTHER Final Resul t * EKG 12 LEAD (09/23/2024 9:12 AM APPLICATION DEVELOPMENT SPECIALIST) us Veronica LOFTON EKG ORD Final Result * WI READING EKG - NO CHARGE, COMP ONLY (09/23/2024 9:11 AM APPLICATION DEVELOPMENT SPECIALIST) us Veronica LOFTON PB - PROVIDER READINGS Final Result * CBC WITH AUTO DIFFERENTIAL (09/21/2024 1:19 PM APPLICATION DEVELOPMENT SPECIALIST) [facility] WHITE BLOOD COUNT 8.3 4.5 - 11.0 thou/cu mm 09/21/2024 2:27 PM [facility] RED BLOOD COUNT 4.49 4.00 - 5.20 mil/cu mm 09/21/2024 2:27 PM [facility] HEMOGLOBIN 14.3 12.0 - 16.0 g/dL 09/21/2024 2:27 PM [facility] HEMATOCRIT 40.6 33.0 - 51.0 % 09/21/2024 2:27 PM [facility] MCV 90 80 - 100 fL 09/21/2024 2:27 PM [facility] MCH 31.8 26.0 - 34.0 pg 09/21/2024 2:27 PM [facility] MCHC 35.2 32.0 - 36.0 g/dL 09/21/2024 2:27 PM [facility] RDW 11.9 11.5 - 15.5 % 09/21/2024 2:27 PM [facility] PLATELET COUNT 259 140 - 440 thou/cu mm 09/21/2024 2:27 PM [facility] MPV 8.6 6.5 - 11.0 fL 09/21/2024 2:27 PM [facility] Blood BLOOD SPECIMEN / Unknown [facility] / Unknown 09/21/2024 1:19 PM APPLICATION DEVELOPMENT SPECIALIST 09/21/2024 1:19 PM APPLICATION DEVELOPMENT SPECIALIST us Amy E Keenan [employer]ER [employer] SEINE HEMATOLOGY Final Result [facility] [address] [place] [address] * RED CELL MORPHOLOGY (09/21/2024 1:19 PM APPLICATION DEVELOPMENT SPECIALIST) Pathologist [facility] RBC COMMENT RBC morphology appears normal RBC morphology appears normal, RBC morphology within normal limits for newborns. 09/21/2024 2:27 PM APPLICATION DEVELOPMENT SPECIALIST [facility] Blood BLOOD SPECIMEN / Unknown [facility] / Unknown 09/21/2024 1:19 PM APPLICATION DEVELOPMENT SPECIALIST 09/21/2024 1:19 PM APPLICATION DEVELOPMENT SPECIALIST us Amy E Furlong FISH[employer] SEINE HEMATOLOGY Final Result Performing Organization Address [facility]/ZIP Co de Phone Number [facility] [address] [place] [address] * PLATELET ESTIMATE (09/21/2024 1:19 PM APPLICATION DEVELOPMENT SPECIALIST) [facility] PLATELET ESTIMATE Adequate Adequate, No estimate 09/21/2024 2:27 PM [facility] Blood BLOOD SPECIMEN / Unknown [facility] / Unknown 09/21/2024 1:19 PM APPLICATION DEVELOPMENT SPECIALIST 09/21/2024 1:19 PM APPLICATION DEVELOPMENT SPECIALIST us Amy E Furlong FISHER [employer] SEINE HEMATOLOGY Final Result Performing Organization Address City/[facility]/ZIP Co de Phone Number [facility] [address] [place] [address] * (ABNORMAL) MANUAL DIFFERENTIAL (09/21/2024 1:19 PM APPLICATION DEVELOPMENT SPECIALIST) [facility] % NEUTROPHILS 61.0 % 09/21/2024 2:27 PM [facility] % LYMPHOCYTES 23.0 % 09/21/2024 2:27 PM [facility] % MONOCYTES 16.0 % 09/21/2024 2:27 PM [facility] % EOSINOPHILS 0.0 % 09/21/2024 2:27 PM [facility] % BASOPHILS 0.0 % 09/21/2024 2:27 PM [facility] NEUTROPHILS ABSOLUTE 5.1 1.7 - 7.0 thou/cu mm 09/21/2024 2:27 PM APPLICATION DEVELOPMENT SPECIALIST [facility] LYMPHOCYTES ABSOLUTE 1.9 0.9 - 2.9 thou/cu mm 09/21/2024 2:27 PM [facility] MONOCYTES ABSOLUTE 1.3(H) <0.9 thou/cu mm 09/21/2024 2:27 PM APPLICATION DEVELOPMENT SPECIALIST [facility] EOSINOPHILS ABSOLUTE 0.0 <0.5 thou/cu mm 09/21/2024 2:27 PM APPLICATION DEVELOPMENT SPECIALIST [facility] BASOPHILS ABSOLUTE 0.0 <0.3 thou/cu mm 09/21/2024 2:27 PM APPLICATION DEVELOPMENT SPECIALIST [facility] Blood BLOOD SPECIMEN / Unknown [facility] / Unknown 09/21/2024 1:19 PM APPLICATION DEVELOPMENT SPECIALIST 09/21/2024 1:19 PM APPLICATION DEVELOPMENT SPECIALIST us Amy E Furlong FISH[employer] SEINE HEMATOLOGY Final Result Performing Organization Address City/[facility]/ZIP Co de Phone Number [facility] [address] [place] [address] * (ABNORMAL) URINALYSIS MICROSCOPIC (09/21/2024 1:19 PM APPLICATION DEVELOPMENT SPECIALIST) RBC 0-2 0-2, None Seen /HPF 09/21/2024 2:39 PM APPLICATION DEVELOPMENT SPECIALIST [facility] WBC 11-25(A) 0-2, 3-5, None Seen /HPF 09/21/2024 2:39 PM APPLICATION DEVELOPMENT SPECIALIST [facility] BACTERIA Moderate(A ) None Seen, Rare, Few Bacteria/ HPF 09/21/2024 2:39 PM APPLICATION DEVELOPMENT SPECIALIST [facility] EPITHELIAL CELLS Few None Seen, Few Epi/HPF 09/21/2024 2:39 PM [facility] Urine URINE SPECIMEN / Unknown Non-Blood / Unknown 09/21/2024 1:19 PM APPLICATION DEVELOPMENT SPECIALIST 09/21/2024 1:19 PM APPLICATION DEVELOPMENT SPECIALIST us Amy E Furlong FISH[employer] PUR[employer] SEINE URINE Final Result [facility] [address] [place] [address] * URINE CULTURE (09/21/2024 1:19 PM APPLICATION DEVELOPMENT SPECIALIST) CULTURE No growth (<1,000 CFU/mL) 09/22/2024 4:02 PM APPLICATION DEVELOPMENT SPECIALIST [facility] Urine URINE SPECIMEN / Unknown Non-Blood / Unknown 09/21/2024 1:19 PM APPLICATION DEVELOPMENT SPECIALIST 09/21/2024 1:19 PM APPLICATION DEVELOPMENT SPECIALIST us Amy E Furlong [employer] SEINE MICROBIOLOGY Final Result [facility] [address] [place] [address], [place] * (ABNORMAL) STAT Urinalysis w/ reflex to Microscopic (09/21/2024 1:19 PM APPLICATION DEVELOPMENT SPECIALIST) COLOR Yellow Yellow Color 09/21/2024 2:35 PM [facility] CLARITY Clear Clear Clarity 09/21/2024 2:35 PM [facility] SPECIFIC GRAVITY,URINE <=1.005(A) 1.010, 1.015, 1.020, 1.025 09/21/2024 2:35 PM [facility] PH,URINE 5.5 6.0, 7.0, 8.0, 5.5, 6.5, 7.5, 8.5 09/21/2024 2:35 PM [facility] UROBILINOGEN, QUALITATIVE Normal Normal EU/dl 09/21/2024 2:35 PM [facility] PROTEIN, URINE Negative Negative mg/dL 09/21/2024 2:35 PM [facility] GLUCOSE, URINE Negative Negative mg/dL 09/21/2024 2:35 PM [facility] KETONES,URINE Negative Negative mg/dL 09/21/2024 2:35 PM [facility] BILIRUBIN,URI NE Negative Negative 09/21/2024 2:35 PM [facility] OCCULT BLOOD,URINE Negative Negative 09/21/2024 2:35 PM [facility] NITRITE Negative Negative 09/21/2024 2:35 PM APPLICATION DEVELOPMENT SPECIALIST [facility] LEUKOCYTE ESTERASE Trace(A) Negative 09/21/2024 2:35 PM APPLICATION DEVELOPMENT SPECIALIST [facility] Urine URINE SPECIMEN / Unknown Non-Blood / Unknown 09/21/2024 1:19 PM APPLICATION DEVELOPMENT SPECIALIST 09/21/2024 1:19 PM APPLICATION DEVELOPMENT SPECIALIST us Amy E Furlong FISHER [employer] SEINE URINE Final Result Performing Organization Address [facility]/ZIP Co de Phone Number [facility] [address] [place] [address] * (ABNORMAL) C-REACTIVE PROTEIN (09/21/2024 1:19 PM APPLICATION DEVELOPMENT SPECIALIST) Pathologist [facility] C-REACTIVE PROTEIN 4.3(H) <0.5 mg/dL 09/21/2024 2:10 PM [facility] Blood BLOOD SPECIMEN / Unknown [facility] / Unknown 09/21/2024 1:19 PM APPLICATION DEVELOPMENT SPECIALIST 09/21/2024 1:19 PM APPLICATION DEVELOPMENT SPECIALIST us Amy E Furlong FISHER [employer] SEINE CHEMISTRY Final Result Performing Organization Address [facility] de Phone Number [facility] [address] [place] [address] * LIPASE (09/21/2024 1:19 PM APPLICATION DEVELOPMENT SPECIALIST) LIPASE 38.4 13.0 - 60.0 IU/L 09/21/2024 2:10 PM APPLICATION DEVELOPMENT SPECIALIST [facility] Blood BLOOD SPECIMEN / Unknown [facility] / Unknown 09/21/2024 1:19 PM APPLICATION DEVELOPMENT SPECIALIST 09/21/2024 1:19 PM APPLICATION DEVELOPMENT SPECIALIST us Amy E Furlong [employer]INE CHEMISTRY Final Result Performing Organization Address [facility] Co de Phone Number [facility] [address] [place] [address] * (ABNORMAL) COMP METABOLIC PANEL (09/21/2024 1:19 PM APPLICATION DEVELOPMENT SPECIALIST) SODIUM 137 136 - 145 mmol/L 09/21/2024 2:10 PM [facility] POTASSIUM 4.1 3.5 - 5.1 mmol/L 09/21/2024 2:10 PM [facility] CHLORIDE 99 98 - 107 mmol/L 09/21/2024 2:10 PM [facility] CO2,TOTAL 26 22 - 29 mmol/L 09/21/2024 2:10 PM [facility] ANION GAP 12 5 - 18 09/21/2024 2:10 PM [facility] GLUCOSE 97 70 - 99 mg/dL 09/21/2024 2:10 PM [facility] CALCIUM 9.5 8.8 - 10.4 mg/dL 09/21/2024 2:10 PM [facility] Comment: Reference ranges for this test were updated on 09/16/2024 to reflect our healthy population more accurately. Reference range changes are not retroactively applied to results, but previous results using the same methodology can be interpreted in the context of the new reference range. BUN 10 6 - 20 mg/dL 09/21/2024 2:10 PM [facility] CREATININE 0.84 0.50 - 0.90 mg/dL 09/21/2024 2:10 PM [facility] BUN/CREAT RATIO 12 10 - 20 2:10 PM [facility] eGFR 88(L) >90 mL/min/1.7 3m2 09/21/2024 2:10 PM [facility] Comment:As of 2022, eG FR is calculated by the CKD-EPI creatinine equation without race adjustment. eGFR can be influenced by muscle mass, exercise, and diet. The reported eGFR is an estimation only and is only applicable if the renal function is stable. ALBUMIN 4.4 4.0 - 4.9 g/dL 09/21/2024 2:10 PM [facility] PROTEIN,TOTAL 7.8 6.0 - 8.0 g/dL 09/21/2024 2:10 PM [facility] BILIRUBIN,TOTAL 0.5 0.0 - 1.2 mg/dL 09/21/2024 2:10 PM APPLICATION DEVELOPMENT SPECIALIST [facility] ALK PHOSPHATASE 89 35 - 104 IU/L 09/21/2024 2:10 PM APPLICATION DEVELOPMENT SPECIALIST [facility] ALT (SGPT) 21 10 - 35 IU/L 09/21/2024 2:10 PM APPLICATION DEVELOPMENT SPECIALIST [facility] AST (SGOT) 22 10 - 35 IU/L 09/21/2024 2:10 PM APPLICATION DEVELOPMENT SPECIALIST [facility] Blood BLOOD SPECIMEN / Unknown [facility] / Unknown 09/21/2024 1:19 PM APPLICATION DEVELOPMENT SPECIALIST 09/21/2024 1:19 PM APPLICATION DEVELOPMENT SPECIALIST us Amy E Furlong FISHER PURSE SEINE CHEMISTRY Final Result Performing Organization Address City/State/[facility] Co de Phone Number [facility] [address] [place] [address] * CT CHEST PE STUDY (09/19/2024 11:42 AM APPLICATION DEVELOPMENT SPECIALIST) Anatomical Region Laterality Modality CHEST, THORAX, HEART Computed To mography 09/19/2024 12:2 0 PM APPLICATION DEVELOPMENT SPECIALIST Narrative 09/19/2024 12:20 PM APPLICATION DEVELOPMENT SPECIALIST For Patients: As a result of the [...] 12:20:50 PM (Electronically Signed) Veronica LOFTON CT Final Result * COVID/FLU/RSV PANEL (09/19/2024 10:48 AM APPLICATION DEVELOPMENT SPECIALIST) Pathologist [facility] COVID 19 [facility] MOLECULAR Negative Negative 09/19/2024 8:40 PM APPLICATION DEVELOPMENT SPECIALIST [facility] Comment:All PCR tests are morrison bject to false negative result due to variability in viral load and collection technique. A negative result does not rule out a SARS-CoV-2 infection. Clinical correlation required. INFLUENZA A PCR Negative 4 8:40 PM APPLICATION DEVELOPMENT SPECIALIST [facility] INFLUENZA B PCR Negative 4 8:40 PM APPLICATION DEVELOPMENT SPECIALIST [facility] Respiratory Syncytial Virus Negative 09/19/2024 8:40 PM APPLICATION DEVELOPMENT SPECIALIST [facility] Swab NASOPHARYNGEAL SWAB / Unknown Non-Blood / Unknown 09/19/2024 10:48 AM APPLICATION DEVELOPMENT SPECIALIST 09/19/2024 10:49 AM APPLICATION DEVELOPMENT SPECIALIST Veronica LOFTON MICROBIOLOGY Final Result [facility] [address] [place] [address], [place] * THROAT RAPID STREP ONLY CLINIC (09/19/2024 10:47 AM APPLICATION DEVELOPMENT SPECIALIST) Pathologist [facility] POC, GROUP A STREP NOT DETECTED NOT DETECTED [facility] Comment: The [place] [employer] recommends that a throat culture be performed if a rapid group A streptococcus assay yields a negative result. [facility] recommends Streptococcus, Group A culture. Throat SPECIMEN FROM THROAT / Unknown 09/19/2024 10:47 AM APPLICATION DEVELOPMENT SPECIALIST 09/19/2024 10:47 AM APPLICATION DEVELOPMENT SPECIALIST Veronica LOFTON MICROBIOLOGY Final Result [facility] [address] [place] [address], [facility] [address] [place] [address] * SCAN-ULTRASOUND REPORT (09/11/2024 12:00 AM CDT) Anatomical Region Laterality Modality Other us Scanner OTHER Final Result * PATH TISSUE EXAM (08/25/2024 2:52 PM CDT) Case Report Pathology Report Case: [id number] Authorizing Provider: All Og MD Collected: 08/25/2024 1452 Ordering Location: [facility] Received: 08/25/2024 1540 Clinic Pathologist: Roslyn Arellano MD Specimen: Left Breast, single stitch superior, double stitch lateral--histor y of left breast cancer 202208/27/2024 4:00 PM CDT [facility]-C ENTRAL LABORATORY Final Diagnosis A) LEFT BREAST SKIN, CYST, EXCISION: 1. Skin with epidermal inclusion cyst 2. Negative for malignancy 08/27/2024 4:00 PM CDT [facility] ENTRAL LABORATORY Clinical Information Cyst 08/27/2024 4:00 PM CDT [facility] ENTRAL LABORAT[facility] Gross Description A) Received in [...] hours. LDW 08/26/2024 08/27/2024 4:00 PM CDT [facility] Microscopic Description The final diagnosis is based on microscopic examination of appropriate sections of all specimens. 08/27/2024 4:00 PM CDT [facility] Additional Information Interpreted at [facility] - [address] [facility] [address], [place] [address] 08/27/2024 4:00 PM CDT [facility] Other (Left Breast) Non-Blood / Unknown 08/25/2024 2:52 PM CDT 08/25/2024 3:40 PM CDT us All Og MD PATHOLOGY/CYTOLOGY Final R esult [facility] [address] [place] [address], * SHAREPOINT ENGINEER THIN PREP PAP SCREEN IMAGED (09/07/2020 9:01 AM CDT) Case Report Gynecologic Cytology Report Case: [id number] Authorizing Provider: Celi Dickinson PA Collected: 09/07/2020 0901 Ordering Location: [facility] Received: 09/07/2020 0950 Clinic First Screen: Jose Beyer Rescreen: Linsey Rooney Specimen: SHAREPOINT ENGINEER ThinPrep Vial Screening, Cervical 09/14/2020 2:42 PM APPLICATION DEVELOPMENT SPECIALIST [facility] INTERPRETATION/ RESULT NEGATIVE FOR INTRAEPITHELIAL LESION OR MALIGNANCY (NIL) (none) 09/14/2020 2:42 PM APPLICATION DEVELOPMENT SPECIALIST [facility] IMEN ADEQUACY Satisfactory for evaluation Endocervical component present 09/14/2020 2:42 PM APPLICATION DEVELOPMENT SPECIALIST [facility] HPV REQUEST HPV and PAP 09/14/2020 2:42 PM APPLICATION DEVELOPMENT SPECIALIST [facility] Date of LMP 08/26/20 09/14/2020 2:42 PM APPLICATION DEVELOPMENT SPECIALIST [facility] Last Pap Date 06/04/15 09/14/2020 2:42 PM APPLICATION DEVELOPMENT SPECIALIST [facility] ENTRAL LABORATORY Last Pap Result NIL 0 2:42 PM APPLICATION DEVELOPMENT SPECIALIST [facility] Abnormal Pap or [place] Bx in last 5 years No 09/14/2020 2:42 PM APPLICATION DEVELOPMENT SPECIALIST [facility] Menstrual Status Regular Periods 09/14/2020 2:42 PM APPLICATION DEVELOPMENT SPECIALIST [facility] [place] Bx Done Today No 09/14/2020 2:42 PM APPLICATION DEVELOPMENT SPECIALIST [facility] Additional Information None given 09/14/2020 2:42 PM APPLICATION DEVELOPMENT SPECIALIST [facility] ENTRAL LABORATORY Comment: Cytology is screened at [facility] Central [facility] - [address], [place] [address] and [facility] - [address] [place] [address], [place] [address] and [facility] - [address], [place] [address] Interpreted at [facility] [employer] [facility] Laboratory - [address], [place] [address] Automated Review Successful 09/14/2020 2:42 PM APPLICATION DEVELOPMENT SPECIALIST [facility]AL [facility] Comment:Specimen processed s uccessfully by automated dispatcher clerk device, [employer] System, [employer] ANCILLARY TESTING SHAREPOINT ENGINEER HPV Ordered, Please see separate report 09/14/2020 2:42 PM APPLICATION DEVELOPMENT SPECIALIST [facility]-C ENTRAL LABORATORY Note The pap test is a screening technique, not a diagnostic procedure. It is used primarily to screen for squamous cancers and precursor lesions. Published studies have shown that it is subject to both false negative and false positive results. The pap test should not be used as the sole means to diagnose or exclude pre-malignant and malignant lesions. 09/14/2020 2:42 PM APPLICATION DEVELOPMENT SPECIALIST [facility]- ENTRTX LABORATORY Other (Cervical) Non-Blood / Unknown 09/07/2020 9:01 AM CDT 09/07/2020 9:50 AM CDT us Celi LOFTON PATHOLOGY/CYTOLOGY Final R esult [facility] [address] [place] [address], [place] * ANTI HCV (08/15/2011 1:17 PM CDT) ANTI HCV Non-reacti ve [facility] Blood specimen (specimen) BLOOD SPECIMEN / Unknown 08/15/2011 1:17 PM CDT 08/15/2011 1:11 PM CDT Belen Latif MD SEND OUTS Final Result [facility] [place]NAL ZIP [id number] [place] [address] * ANTI HIV 1/2 (08/15/2011 1:17 PM CDT) ANTI HIV 1/2 Non-reacti ve [facility] Blood specimen (specimen) BLOOD SPECIMEN / Unknown 08/15/2011 1:17 PM CDT 08/15/2011 1:11 PM CDT Belen Latif MD SEND OUTS Final Result [facility] INTERNAL ZIP [address] [address] from Last 3 Months or Most Recently Relevant to Health Maintenance Additional Health Concerns Infection Onset Date Last Indicated Rule-Out Stool Pathogen 09/21/2024 09/21/20 Rule-Out C.diff 09/21/2024 09/21/2024 Insurance [facility] Advance Directives * Full Code (Latest Code [...] Code Status Discussion: Not Discussed Care Teams Dowel Inspector Relationship Specialty Start Date End Date Joanna Bran [place] [facility] [place] [address] PCP - General Family Practice 08/31/23 Melita Chilel, OSCAR [address] [place] [address] Nurse Navigator - Oncology Registered Nurse 10/03/23 Nathalie Andrews MD [address] [address] Surgery - General 10/03/23 Petrona Shannon, RN [address] [place] [address] Nurse Navigator - Oncology Registered Nurse 11/02/23 Zeny Kaur MD [address] [place] [address] Medical Oncologist Oncology 11/22/23 Karen Leon, CARLOS [address] [place] [address] Nurse Practitioner Oncology 11/22/23 Nixon Felton LSW [address] [place] [address] [employer] Oncology 11/22/23
--- OUTSIDE RECORDS SUMMARY | 2024-11-19 06:16 | XMS_ITS ---
Author Organization [facility] Address [address] [place] [address] Care Team Providers Care Hereditary Cancer Program Coordinator Name Role Phone Unavailable Primary Care Provider [...] Treated Prescribed Fraction Dose Prescribed Total Dose [id number] 01/04/2024 25 4 of 4 250 cGy 1,000 cG y [id number] 12/31/2023 21 15 of 15 267 cGy 4,005 cGy Reference Point Last Treated On Elapsed Days Session Dose Total Dose [id number] 01/04/2024 25 250 cGy 5,005 cGy
--- OUTSIDE RECORDS SUMMARY | 2024-11-19 06:16 | XMS_ITS | Clinical Summary ---
Author Organization [facility] Address [address] [place] [address] Care Team Providers Care Clinical Program Coordinator Name Role Phone Unavailable Primary Care Provider Unavailabl e Source Comments Patient records contain information from all sites at [facility]. For routine questions regarding patient records, call [phone] during business hours, M-F 8:00 AM - 5:00 PM Central Time. Record requests for emergency care only can be directed to [phone] at any time.[facility] Allergies Active Allergy Reactions Criticality Noted [...] from 10/29/2023:Stage IA(pT1b, pN0(sn), cM0, G1, ER+, SC+, HER2-, Oncotype DX score: 19) - Unsigned [...] drink = 0.6 oz pur e alcohol) [facility] Utilities Answer Date Recorded In the past 12 months has th e [employer], gas, oil, or water [employer] threatened to shut off services in your [...] Date Recorded Employment status Working with temporary [employer] 11/25/2023 Housing Stability Answer Date Recorded What is your living situation today? I have a [facility] place to live 11/25/2023 Comments Unknown Sex and Gender Information Value Date Recorded Sex Assigned at Female 11/25/2023 8:25 PM BEATING MACHINE OPERATOR Legal Sex Female 5:52 PM BEATING MACHINE OPERATOR Gender Identity Female 11/25/2023 8:25 PM BEATING MACHINE OPERATOR Sexual Orientation Straight 11/25/2023 8: 25 PM BEATING MACHINE OPERATOR Last Filed Vital Signs Vital Sign Reading Time Taken Comments Blood Pressure 113/68 11/30/2023 8:52 AM BEATING MACHINE OPERATOR Pulse 84 11/30/2023 8:52 AM BEATING MACHINE OPERATOR Temperature 37 C (98.6 F) 01/02/2024 8:51 AM BEATING MACHINE OPERATOR Respiratory Rate 16 09/25/2013 5:08 PM BEATING MACHINE OPERATOR Oxygen Saturation - - Inhaled Oxygen Concentration - - Weight 101 kg (222 lb 10.6 oz) 01/02/2024 8:51 A M BEATING MACHINE OPERATOR Height 177.5 cm (5' 9.88) 09/25/2013 9:40 AM CS T Body Mass Index - - Plan of Treatment Health Maintenance Due Date Last Done Comments HIV Screening 1980 Hepatitis C Screening 1980 Hepatitis B Vaccines (1 of 3 - 19+ 3-dose series) 1999 Pneumococcal vaccine (0-49 years) (1 of 2 - PCV) 1999 Zoster Vaccines (1 of 2) 1999 [...] OUTSIDE MG MAMMOGRAM Routine 10/29/2023 12:10 PM BEATING MACHINE OPERATOR from Last 3 Months or Most Recently Relevant to Health Maintenance Results * XR BREAST SPECIMEN LEFT-Outside Mammogram (10/29/2023 12:10 PM BEATING MACHINE OPERATOR) Narrative [facility] - 11/19/2023 1:14 PM BEATING MACHINE OPERATOR This order has been created and [...] Most Recently Relevant to Health Maintenance Insurance [facility]
--- OUTSIDE RECORDS SUMMARY | 2024-11-19 06:16 | XMS_ITS | Referral Summary ---
Author Organization [facility] Address [address] [place] [address] Care Team Providers Care Engine Builder Name Role Phone Unavailable Primary Care Provider Unavailabl e Source Comments Patient records contain information from all sites at [facility]. For routine questions regarding patient records, call [phone] during business hours, M-F 8:00 AM - 5:00 PM Central Time. Record requests for emergency care only can be directed to [phone] at any time.[facility] Allergies Active Allergy Reactions Criticality Noted Date [...] from 10/29/2023:Stage IA(pT1b, pN0(sn), cM0, G1, ER+, WI+, HER2-, Oncotype DX score: 19) - Unsigned Immunizations Name Administration Dates Next Due Influenza Split 08/12/2012 Tdap 08/12/2012,05/12/2011 Social History Tobacco Use Types Packs/Day Years Used Date Smoking Tobacco: Former Cigarettes 0.3 8 2 003 - 2010 Smokeless Tobacco: Never Tobacco Cessation:Counseling Given: Not Answered Alcohol Use Standard Drinks/Week Comments Not Currently 0 (1 standard drink = 0.6 oz pur e alcohol) [facility] [employer] Answer Date Recorded In the past 12 months has [employer], [employer], oil, or water [employer] threatened to shut off services in your [...] your living situation today? I have a [facility] place to live 11/25/2023 Comments Unknown Sex and Gender Information Value Date Recorded Sex Assigned at Female 11/25/2023 8:25 PM LIME SLUDGE KILN OPERATOR Legal Sex Female 5:52 PM LIME SLUDGE KILN OPERATOR Gender Identity Female 11/25/2023 8:25 PM LIME SLUDGE KILN OPERATOR Sexual Orientation Straight 11/25/2023 8: 25 PM LIME SLUDGE KILN OPERATOR Last Filed Vital Signs Vital Sign Reading Time Taken Comments Blood Pressure 113/68 11/30/2023 8:52 AM LIME SLUDGE KILN OPERATOR Pulse 84 11/30/2023 8:52 AM LIME SLUDGE KILN OPERATOR Temperature 37 C (98.6 F) 01/02/2024 8:51 AM LIME SLUDGE KILN OPERATOR Respiratory Rate 16 09/25/2013 5:08 PM LIME SLUDGE KILN OPERATOR Oxygen Saturation - - Inhaled Oxygen Concentration - - Weight 101 kg (222 lb 10.6 oz) 01/02/2024 8:51 A M LIME SLUDGE KILN OPERATOR Height 177.5 cm (5' 9.88) 09/25/2013 9:40 AM CS T Body Mass Index - - Plan of Treatment Not on file Procedures Procedure Name Priority Date/Time Associated Diagnosis Comments OUTSIDE MG MAMMOGRAM Routine 10/29/2023 12:10 PM LIME SLUDGE KILN OPERATOR from Last 3 Months or Most Recently Relevant to Health Maintenance Results * XR BREAST SPECIMEN LEFT-Outside Mammogram (10/29/2023 12:10 PM LIME SLUDGE KILN OPERATOR) Narrative [facility] - 11/19/2023 1:14 PM LIME SLUDGE KILN OPERATOR This order has been created and [...] Most Recently Relevant to Health Maintenance Insurance [facility]
[2024-11-19] MEDS: LACTATED RINGERS 1000 ML 1,000 ML 100 ML IV (06:37)
[2024-11-19] MEDS: SODIUM CHLORIDE 0.9 % (FLUSH) 10 ML SYRINGE IVF (06:38)
[2024-11-19] MEDS: PHENAZOPYRIDINE HCL 200 MG TABLET PO (06:45)
[2024-11-19 07:01] LABS: Hemoglobin* 13.7 gm/dL (12.0-16.0)
--- NOTE | 2024-11-19 07:18 | W.PM.H&PU ---
History & Physical Update History & Physical Update H&P Reviewed and patient assessed: No changes noted H&P Updates: Ms. Doe is seen in pre-op prior to planned total laparoscopic hysterectomy, bilateral salpingo-oophorectomy and diagnostic cystoscopy. No interval change to her health history or questions today. We again reviewed the risks, benefits and alternatives to the planned procedure. Written consent was re-signed. She is high risk for VTE, where mechanical and chemoprophylaxis will be administered, plan established with her vascular medicine provider to include post-op xarelto. Post-procedure restrictions and expectations reviewed. Pre-op labs reviewed and are within normal limits. Ancef as perioperative antibiotic.
[2024-11-19 07:24] LABS: Ur HCG Qualitative* Negative (Negative)
[2024-11-19] MEDS: CEFAZOLIN 2 GM INJ IVP (07:45)
[2024-11-19] MEDS: HEPARIN 5,000 UNIT/0.5 ML INJ 5000 UNIT SUBCUT (07:55)
[2024-11-19] MEDS: BUPIVACAINE 0.25% 30 ML 20 ML INJECTION (08:00)
--- NOTE | 2024-11-19 10:24 | P.GYNPRC_ITS ---
Procedure Note Date of procedure: 11/19/24 Will [facility] bill your pro fee for this procedure?: Yes Pre-op diagnosis: Breast cancer Pelvic pain, history of ovarian cysts Abnormal uterine bleeding Procedure: Total laparoscopic hysterectomy, bilateral salpingo oophorectomy, diagnostic cystoscopy Anesthesia: GETA Complications: None Surgeon: Román Fair MD Machinist Supervisor Outside: Kaitlyn Farr Estimated blood loss (mL): 150 IV fluids (mL): 900 Urine Output (mL): 500 Pathology: specimen obtained, sent to pathology Condition: stable Disposition: observation Findings: Unremarkable upper abdominal survey Pelvic survey notable for adhesions between the uterus and rectum at the posterior cul-de-sac Adhesive disease between the uterus and bilateral adnexa, left greater than right Unremarkable diagnostic cystoscopy, robust bilateral ureteral efflux Procedure Description: Patient was taken to the operating room with IV running. She received cefazolin in preoperative prophylaxis. She was positioned in dorsal lithotomy position with her legs fully supported in Yellofin stirrups. General anesthesia was administered. She was prepped and draped in the usual sterile fashion. Pelvic exam under anesthesia was performed for the above-noted findings. Speculum was inserted. Cervix visualized and grasped along its anterior lip with a single-tooth tenaculum. Cervix was dilated with Hegar dilators to accommodate the VCare uterine manipulator. An extra-large size colpotomizer cup was selected. The tip of the uterine manipulator was inserted through the cervix into the uterine cavity and the balloon was inflated. The speculum was removed. The colpotomy cup was advanced, surrounding the cervix, and the proximal occluder was moved up along the shaft of the VCare and fixed in place. Piper catheter was placed. Patient's legs were then placed in neutral position. Attention was turned to patient's abdomen. Infraumbilical area was infiltrated with a small amount of Marcaine. A 12 mm infraumbilical incision was made with a scalpel and carried down to the underlying layer of fascia with the hemostat. The fascia was grasped with Shiela clamps and elevated, fascial incision made with scalpel. A curved hemostat was utilized to enter peritoneum and gently stretch fascial incision. The fascia was tagged with 0 vicryl and straights removed. Martinez trocar was introduced to the peritoneal cavity, balloon inflated. 10mm camera inserted and high flow initiated. Pneumoperitoneum was achieved, where careful attention was paid below site of entry - no injury or bleeding noted. Upper abdominal survey was completed, revealing normal anatomy. Patient was put into Trendelenburg, pelvic survey noted normal uterus, bilateral fallopian tubes and ovaries aside from adhesive disease suspicious for endometriosis. Three additional port sites were created. The first was in the patient's left lower quadrant, just superomedial to the left ASIS. The second was a hand's breadth superior to and slightly medial to the first. The third was in the patient's right lower quadrant, just superomedial to the right ASIS. All incisions and trocars were 5mm, inserted under direct visualization and without complication. The balloon on each of the ports was inflated, holding each in place. Attention was first turned to the left adenxa, where the ureter could be easily visualized several centimeters inferior to planned transection site of the infundibulopelvic ligament transperitoneally. The IP was grasped and serially coagulated, using the Ligasure device. The ovarian vessels were ligated and transected, leaving a vascular pedicle that was noted to be hemostatic. I continued to dissect the left adnexal structures off the peritoneum, working inferiorly toward the round ligament. The left round ligament was cauterized and transected with the Ligasure device. The anterior peritoneal reflection was opened and developed using a combination of sharp and electrocautery dissection, creating a bladder flap to the midline of the uterus. Ultimately, due to adher ence of the left ovary to the posterolateral uterus, the adnexa was coagulated and ligated to be removed separate from the uterine specimen to allow for better visualization of the distal uterus/cervix. The left adnexal structures were placed in the posterior cul-de-sac. The left uterine artery and vein were isolated, and serially coagulated using the ligasure. Attention was then turned to the right side of the pelvis. The ureter was readily visualized transperitoneally, where right salpingo-oophorectomy was performed in the same fashion. The adnexa was coagulated and transected at the uterine cornua, placed in the posterior cul-de-sac to allow for optimal visualization. The round ligament was opened on the right, where the bladder flap was further developed moving laterally to medially to meet the left sided dissection. Care was made to drop the bladder reflection to well below the planned site of colpotomy. The posterior peritoneum was dissected to isolate the posterior colpotomy cup carefully, with a combination of blunt and sharp dissection. Particular attention was paid to ensure we were superior to the sigmoid colon and rectum, as this was adhesed up in the posterior cul-de-sac as noted above. The bowel was noted to drop away from the site of planned colpotomy without difficulty. The bilateral uterosacral ligaments cauterized and transected with ligasure. The right uterine vessels were isolated, then serially coagulated with ligasure. The right uterine vessels were transected with ligasure, noted to drop lateral planned site of colpotomy. Attention was turned back to the left side, where the uterine vessels were coagulated then transected once more. These vessels similarly fell lateral to the planned site of colpotomy. Survey was completed to ensure clear dissection plane of the planned colpotomy, where the colpotomizer cup could be palpated circumferentially. The vaginal fornix was then entered at the right lateral margin using the [employer] lab monopolar spatula using the colpotomizer as a guide. The device was moved along the colpotomizer cup circumferentially, in a counter clockwise fashion. The uterus and cervix were freed from their attachments to the pelvis. The uterus and bilateral adnexa were was pulled into the patient's vagina and removed. Specimens sent for pathologic evaluation. A gloved sponge was reinserted into the vagina to maintain the pneumoperitoneum. A 2 0 V lock suture was inserted through the left lower quadrant port. Using laparoscopic needle drivers, the vaginal cuff was closed in a running fashion, incorporating the distal most aspects of the uterosacral ligaments bilaterally into the closure. Closure proceeded from right to left, and then 2 additional stitches were placed moving more medially to assure that the closure remained intact. Suture was cut. Ports were left in place but all instruments were removed and pneumoperitoneum was released. Patient's legs were placed back in lithotomy position. Gloved sponge was removed from the patient's vagina. Speculum exam was performed, showing an intact cuff with no obvious active bleeding. The Piper catheter was removed from the bladder, and the cystoscope was assembled with saline inflow, outflow, and light cord in place. The patient was given PO pyridium prior to the procedure to aid with ureteral efflux identification. Cystoscope was advanced through the urethra into the bladder, and survey of the mucosa revealed a normal appearance. The bladder dome was intact. Bilateral ureteral jets were noted. Cystoscope was removed and Piper catheter replaced. Patient's legs were again placed in neutral position. Insufflator was reattached to the port and pneumoperitoneum again achieved. Survey of the pelvis revealed hemostasis. Eleonora was applied across the vaginal cuff. Low pressure test confirmed excellent hemostasis. All ports were removed under direct visualization. Pneumoperitoneum was released. The previously tagged fascial sutures were tied together, closing the 12mm fascial incision at the intraumbilical location. The skin of each port site was closed in a subcuticular fashion with 4 0 Monocryl. Surgical glue was applied above this. Patient tolerated procedure well and was taken to recovery area in stable condition.
--- NOTE | 2024-11-19 10:35 | P.NB_ITS ---
Nerve Block Nerve Block Time Seen by Provider: 07:50 Date Seen: 11/19/24 Type of block requested by surgeon for post-operative analgesia: TAP Side: bilateral Time out performed: Yes Verification of patient name: Yes Verification of date of : Yes Site marking: site marked Name of person performing procedure: Vasquez Continuous monitoring Was continuous monitoring of O2 sat, B/P, registered nurse cardiac, recorded every 15 minutes?: Yes Procedure Checklist: sterile prep, needles and gloves Ultrasound guided. Images saved: Yes Medications given in 5ml increments after negative aspiration: Marcaine %: 0.25 mL: 30 Needle gauge: 20 and Exparel mL: 10 Patient tolerated procedure well: Yes Additional comments: Needle noted between internal oblique and transversus abdominus. Local spread visualized Block Charges Block Charge (with Pro Fee): TAP Bilateral Use of Ultrasound Machine for Block: Yes- US Guidance/pain block
--- NOTE | 2024-11-19 10:35 | W.ANESCHARGE ---
Anesthesia Charges Start Date/Time Anesthesia Start Date: 11/19/24 Anesthesia Start Time: 07:38 Stop Date/Time Anesthesia Stop Date: 11/19/24 Anesthesia Stop Time: 10:29
[2024-11-19] MEDS: fentaNYL 100 MCG/2 ML inj 50 MCG IVP (10:51)
[2024-11-19] MEDS: KETOROLAC 30 MG/ML inj IVP ×3 (10:54→22:11)
[2024-11-19] MEDS: ACETAMINOPHEN 500 MG TABLET 1000 MG PO ×2 (12:44→19:24)
[2024-11-19] MEDS: ONDANSETRON 2 MG/ML inj 4 MG IVP (15:12)
[2024-11-19] MEDS: LACTATED RINGERS 500 ML 500 ML 125 ML IV (17:25)
[2024-11-19 22:38] LABS: Hemoglobin* 11.7 gm/dL (12.0-16.0)
[2024-11-20 01:28] VITALS: BP 117/73; PULSE 87; RESP 14; RESP 16; TEMP 36.7
[2024-11-20] MEDS: ACETAMINOPHEN 500 MG TABLET 1000 MG PO ×2 (01:30→07:32)
[2024-11-20 03:54] VITALS: BP 107/71; PULSE 76; RESP 18; TEMP 36.9; O2SAT 97
[2024-11-20] MEDS: IBUPROFEN 600 MG TABLET PO ×2 (03:57→10:03)
[2024-11-20 04:17] LABS: Hemoglobin* 11.5 gm/dL (12.0-16.0)
[2024-11-20 07:32] VITALS: BP 111/74; PULSE 74; RESP 16; TEMP 37.1; O2SAT 98
--- NOTE | 2024-11-20 08:26 | PM.GYNDS1 ---
DS: Providers Provider Time Seen by Provider: 08: Date Seen: 11/20/24 Primary care physician: Joanna Bran DO Attending Physician on discharge: Geetha aFir MD TRANSMISSION AND PROTECTION ENGINEER-Discharge Summary Hospital Course Hospital Course Narrative: Patient is a 44 year old admitted on 11/19/2024 for total laparoscopic hysterectomy, bilateral salpingo oophorectomy and diagnostic cystoscopy. Indication for surgery: Breast cancer, pelvic pain, history of abnormal uterine bleeding. Intraoperative findings were notable for adhesive disease secondary to suspected endometriosis. Please see my operative note for complete details. She had an uncomplicated surgery. Postoperative course has been uneventful. Vitals have been stable. She has remained afebrile. Today, on postoperative day 1, she reports the pain is well controlled. She has only been utilizing toradol and tyneol. Trying trying to avoid oxycodone as this has made her nauseated and dizzy in the past, open to trailing tramadol as an alternative. She has been able to ambulate without difficulty. She is tolerating regular diet. She is not yet passing flatus. Piper catheter has been removed, and she is voiding without difficulty. Scant vaginal bleeding noted. Denies calf pain, erythema, tenderness, dizziness/lightheadedness, chest pain or dyspnea. Patient vascular medicine provider has expressed a preference for Xarelto as postoperative prophylaxis, where they recommend 10 mg daily times 30 days. She has had 0 hemoglobin in the postoperative period, stable at 11.5. Vitals have been entirely within normal limits. Adequate urine output. Benign abdominal exam. Plan to start Xarelto this morning. Time Spent with Patient Time attestation: Total time spent providing and/or coordinating discharge services: Time spent: Less than 30 minutes TRANSMISSION AND PROTECTION ENGINEER - Exam Physical Exam: Vital signs: Temp Pulse Resp BP Pulse Ox O2 Del Method O2 Flow Rate 98.7 F 74 16 111/74 98 Room Air 0 11/20/24 07:32 11/20/24 07:32 11/20/24 07:32 11/20/24 07:32 11/20/24 07:32 11/20/24 07:32 11/19/24 16:15 Narrative: General: Alert and oriented, in no acute distress Psych: Appropriate mood and affect Abdomen: Soft, non-tender and non-distended. Incisions are approximated and dry, surgical glue superficially. No peripheral erythema or ecchymosis. Pelvic: Perineal exam notable for no active bleeding, small volume old brown/maroon blood noted on undergarments. TRANSMISSION AND PROTECTION ENGINEER - DS: Data Data Completed and Pending Labs on day of discharge: Labs from last 24 hours 11/20/24 11/19/24 04:13 22:20 Hgb 11.5 L 11.7 L Procedures Procedures: Procedures Operation Date: 11/19/24 07:15 Actual Procedure Side Surgeon p M/S-Total Laparoscopic Hysterectomy, Bilateral Salpingo-Oophorectomy, Diagnostic Cystoscopy Geetha Fair MD Discharge Plan Discharge Disposition: Home w/ Parent or Adult Discharging Surgeon: Geetha Fair Follow-Up Appointment: 2 week and 6 week post op Prescriptions: New Xarelto 10 mg Tablet 10 mg PO DAILY Qty: 29 0RF tramadol 50 mg tablet 50 mg PO Q8H PRN (Reason: pain) Qty: 15 0RF Continued Lactobacillus rhamnosus GG 20 billion cell capsule 1 cap PO DAILY multivitamin [Daily Multi-Vitamin] Tablet 1 tab PO QDAY loratadine [Claritin] 10 mg tablet 10 mg PO QDAY anastrozole 1 mg tablet 1 mg PO DAILY calcium carbonate-vitamin D3 500 mg-3.125 mcg (125 unit) tablet 1 tab PO DAILY Discontinued Lupron Depot (3 month) 11.25 mg syringe kit 11.25 mg IM [id number] Discharge Diet: Regular Additional Instructions: Lifting restrictions: Please do not lift more than 15lbs for 6 weeks Sexual restriction: Pelvic rest for 6 weeks Pain control: Over the counter Motrin 600 mg by mouth every six hours on a full stomach for pain as needed Over the counter Acetaminophen 1000 mg by mouth every six hours on a full stomach for pain as needed Tramadol 50mg every 8 hours as needed for breakthrough pain Please call with: - Heavy vaginal bleeding - Increasing or severe abdominal pain - Fevers/chills - Inability to tolerate solid/liquids by mouth, recurrent nausea/vomiting - Incision redness/drainage - Signs or symptoms of a blood clot - calf pain, redness, swelling, chest pain or shortness of breath Follow-up: Joanna Bran DO [Primary Care Provider] - Discharge Orders: Discharge Order (Routine); Ordered 11/20/24 Ordered By: Geetha Fair
[2024-11-20] MEDS: TRAMADOL HCL 50 MG TABLET PO (08:58)
[2024-11-20] MEDS: RIVAROXABAN 10 MG TABLET PO (08:59)
--- NOTE | 2024-11-20 12:16 | PM.ANPOST ---
Post Anesthesia Note Post Anesthesia Note Patient seen: Inpatient Respiratory Status: adequate Cardiovascular Status: adequate Mental Status: baseline Pain: adequate Temp: baseline Anesthetic awareness: N/A Complications: none Follow care: none
== END 2024-11-20 10:50 | disposition home or self-care (01) ==
LOC: OR 06:14 → OB 06:39
PROVIDERS: PCP Family Medicine; Visit Provider Obstetrics & Gynecology
PROC: 0UT94ZZ Resection of Uterus, Percutaneous Endoscopic Approach (ICD-10-PCS; CPT 58571; principal; 2024-11-19 07:15)
DX: N94.10 Unspecified dyspareunia (principal); R10.2 Pelvic and perineal pain; E28.2 Polycystic ovarian syndrome; N73.6 Female pelvic peritoneal adhesions (postinfective); C50.912 Malignant neoplasm of unspecified site of left female breast; N92.0 Excessive and frequent menstruation with regular cycle; E66.9 Obesity, unspecified; Z68.33 Body mass index [BMI] 33.0-33.9, adult; G89.18 Other acute postprocedural pain
CPT/HCPCS: 58571; 00840; 36415; 64488; 76942; 81025; 85018; 86850; 86900; 86901; 88307; A4314; A9270; J0330; J0665; J0666; J0690; J1100; J1171; J1644; J1885; J2250; J2405; J2704; J2710; J3010; J3475; J3490; J7120

== ENCOUNTER 2025-09-10 06:21 | Outpatient (CLI) | payer BC, SELFPAY ==
--- NOTE | 2025-09-10 08:03 | P.ANES_ITS ---
Anesthesia Charges Start Date/Time Anesthesia Start Date: 09/10/25 Anesthesia Start Time: 07:24 Stop Date/Time Anesthesia Stop Date: 09/10/25 Anesthesia Stop Time: 07:58 Coding CPT Codes CPT Codes: GARY LWR INTST NDSC NOS - [id number] ([id number]) P2 - PATIENT W/MILD SYST DISEASE, QK - SAUSAGE MEAT TRIMMER 2-4 CNCRNT ANES PROC, QX - MARKETING PROGRAMS MANAGER SVC W/ MD MED DIRECTION
--- NOTE | 2025-09-10 08:03 | W.ANESCHARGE ---
Anesthesia Charges Start Date/Time Anesthesia Start Date: 09/10/25 Anesthesia Start Time: 07:24 Stop Date/Time Anesthesia Stop Date: 09/10/25 Anesthesia Stop Time: 07:58 Coding CPT Codes CPT Codes: GARY LWR INTST NDSC NOS - [id number] ([id number]) P2 - PATIENT W/MILD SYST DISEASE, QK - DYE WEIGHER HELPER 2-4 CNCRNT ANES PROC, QX - MECHANICAL DRAFTER SVC W/ MD MED DIRECTION
--- NOTE | 2025-09-10 11:08 | P.ANES_ITS ---
Anesthesia Charges Start Date/Time Anesthesia Start Date: 09/10/25 Anesthesia Start Time: 07:24 Stop Date/Time Anesthesia Stop Date: 09/10/25 Anesthesia Stop Time: 07:58 Coding CPT Codes CPT Codes: GARY LWR INTST NDSC NOS - [id number] ([id number]) QK - LIGHT RAIL TRAIN OPERATOR 2-4 CNCRNT GARY PROC, QX - [facility] SVC W/ MD MED DIRECTION, P2 - PATIENT W/MILD SYST DISEASE
--- NOTE | 2025-09-10 11:08 | W.ANESCHARGE ---
Anesthesia Charges Start Date/Time Anesthesia Start Date: 09/10/25 Anesthesia Start Time: 07:24 Stop Date/Time Anesthesia Stop Date: 09/10/25 Anesthesia Stop Time: 07:58 Coding CPT Codes CPT Codes: GARY LWR INTST NDSC NOS - [id number] ([id number]) QK - SAILING INSTRUCTOR 2-4 CNCRNT GARY PROC, QX - PACKING MACHINE CAN FEEDER SVC W/ MD MED DIRECTION, P2 - PATIENT W/MILD SYST DISEASE
== END 2025-09-10 06:22 | disposition home or self-care (01) ==
LOC: OP CLINIC 06:22
PROVIDERS: PCP Family Medicine; Visit Provider Surgery
DX: Z12.11 Encounter for screening for malignant neoplasm of colon (principal); K63.5 Polyp of colon
CPT/HCPCS: 00811; 00812; 45385; 88305; J2371; J2704